=== PATIENT | male | born 1975 | race Caucasian/White ===

== ENCOUNTER 2024-10-15 13:43 | Emergency (ER) | payer OTHER ==
--- OUTSIDE RECORDS SUMMARY | 2024-10-15 13:53 | XMS REPORT | Clinical Summary ---
Author Name Unknown Organization [facility] Address [address] [place] [address] Care Team Providers Care Station Engineer Chief Name Role Phone Jd Pena MD Unavailable [phone] Fco Manuel MD Unavailable BrookdaleTad MD Unavailable [email or web address] Nicole Meadows Unavailable Edwin Guidry MD Unavailable [phone] Terell Seymour MD Unavailable Martin May MD Unavailable Fco Manuel MD Primary Care Provider [phone] Kim Sapp MD Unavailable Wendy Haider MD Unavailable [phone] Viraj Nelson MD Unavailable Taryn FLORES MD, William J Unavailable Rebecca Garza MD Unavailable [phone] Michelle Hagan MD Unavailable Chuck Darby MD Unavailable [phone] Emeka Cruz MD Unavailable Neno Beyer MD Unavailable Allergies Active Allergy Reactions Criticality Noted Date Comments Daptomycin Other (See Comments) High 04/11/2017 Had severe reaction where it was causing muscle degeneration and extreme pain. Rifampin GI Intolerance High 04/11/2017 Dizzy, nausea, and severe diarrhea. Medications * This document contains information received from the source organization and may not represent a complete record from that organization. cholecalciferol, vitamin D3, 125 mcg (5,000 unit) capsule Take 1 capsule (5,000 Units) by mouth every morning. Active clonazePAM (KlonoPIN) 0.5 mg tabletIndications:Anxi ety about body function or health,Adjustment disorder with depressed mood,Adjustment disorder with anxiety,Mild major depression,Panic attack Take half a tablet to 1 tablet daily as needed for panic attacks 30 tablet 2 2018 Active temazepam (RESTORIL) 15 mg capsuleIndications:Anx iety about body function or health,Adjustment disorder with depressed mood,Adjustment disorder with anxiety,Mild major depression Take 1 capsule (15 mg) by mouth nightly as needed for sleep. 2023 Active naloxone (Narcan) 4 mg/actuation nasal sprayIndications:Cance r associated pain,Chronic pain Use 1 dose into one nostril as needed for opioid overdose. Do not prime or test the inhaler prior to adminstration. Give another dose into the other nostril after 2 to 3 minutes if the patient does not respond or responds and then relapses into respiratory depression. 2 each 2023 Active levothyroxine (Synthroid) 100 mcg tabletIndications:Hypo thyroidism, not otherwise specified Take 1 tablet (100 mcg) by mouth daily. 30 tablet 11 2023 Active Jardiance 10 mg tabletIndications:Type 2 diabetes mellitus with hyperglycemia TAKE ONE (1) TABLET(S) BY MOUTH ONCE A DAY. 90 tablet 3 2023 Active montelukast (SINGULAIR) 10 mg tabletIndications:Seas onal allergic rhinitis TAKE ONE (1) TABLET(S) BY MOUTH DAILY. 30 tablet 6 2023 Active rosuvastatin (CRESTOR) 40 mg tabletIndications:Type 2 diabetes mellitus with hyperglycemia TAKE ONE (1) TABLET(S) BY MOUTH AT BEDTIME. 90 tablet 3 2023 Active gabapentin (NEURONTIN) 600 mg tabletIndications:Multiple Coil Winder niels pain TAKE TWO (2) TABLETS BY MOUTH THREE TIMES A DAY. 180 tablet 5 2023 Active fenofibrate 54 mg tabletIndications:Fami lial hypercholesterolemia TAKE ONE (1) TABLET(S) BY MOUTH ONCE A DAY. 30 tablet 11 2023 Active lidocaine (LIDODERM) 5% (700 mg/patch) transdermal patchIndications:Cance r associated pain PLACE 1 PATCH ON THE SKIN DAILY. REMOVE & DISCARD PATCH WITHIN 12 HOURS OR DIRECTED BY MD. REMOVE OLD PATCH(ES) BEFORE REPLACING NEW PATCH(ES). 30 patch 2 2023 Active desvenlafaxine succinate (PRISTIQ) 100 mg 24 hr tablet Take 1 tablet (100 mg) by mouth daily. 2023 Active Proctofoam HC rectal foamIndications:Second emy malignant neoplasm of liver,Secondary malignant neoplasm of right lung,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,Clear cell carcinoma of left kidney APPLY AROUND THE ANUS TWICE DAILY. 10 g 3 2024 Active acetaminophen (TYLENOL) 500 mg tablet Take 1 tablet (500 mg) by mouth as needed for mild pain (pain score 1-3). 05/08 Discontinued( Therapy completed) temazepam (RESTORIL) 15 mg capsuleIndications:Anx iety about body function or health,Adjustment disorder with depressed mood,Adjustment disorder with anxiety,Mild major depression Take 1 capsule (15 mg) by mouth at bedtime. 30 capsule 2 11/28 Discontinued( Reorder) budesonide (PULMICORT) 0.5 mg/2 mL nebulizer solution 2 mL (0.5 mg) as needed. As needed as nasal rinse 05/20 Discontinued( Therapy completed) triamcinolone (KENALOG) 0.1% lotionIndications:Rash Apply topically to affected area(s) 3 (three) times a day. 60 mL 10/12 Discontinued( Therapy completed) rosuvastatin (CRESTOR) 40 mg tabletIndications:Type 2 diabetes mellitus with hyperglycemia TAKE ONE (1) TABLET (40 MG) BY MOUTH AT BEDTIME. 90 tablet 3 10/31 Discontinued polyethylene glycol (Miralax) 17 gram/dose powderIndications:Back pain,Secondary malignant neoplasm of bone Take 17 g by mouth twice daily. USE WHILE TAKING OXYCODONE. 510 g 11/28 Discontinued( Reorder) desvenlafaxine (PRISTIQ) 50 MG 24 hr tablet Take 1 tablet (50 mg) by mouth daily. 11/28 Discontinued( Reorder) fenofibrate 54 mg tabletIndications:Fami lial hypercholesterolemia TAKE ONE (1) TABLET(S) BY MOUTH ONCE A DAY. 30 tablet 11 06/08 Discontinued desvenlafaxine succinate (PRISTIQ) 25 mg 24 hr tablet Take 1 tablet (25 mg) by mouth daily. 11/28 Discontinued( Reorder) Jardiance 10 mg tabIndications:Type 2 diabetes mellitus with hyperglycemia TAKE ONE (1) TABLET(S) BY MOUTH ONCE A DAY. 30 tablet 6 03/02 Discontinued montelukast (SINGULAIR) 10 mg tabletIndications:Seas onal allergic rhinitis TAKE ONE (1) TABLET(S) BY MOUTH DAILY. 30 tablet 6 03/31 Discontinued gabapentin (NEURONTIN) 600 mg tabletIndications:Multiple Coil Winder niels pain TAKE TWO (2) TABLETS BY MOUTH THREE TIMES A DAY. 180 tablet 5 04/28 Discontinued traMADol (ULTRAM) 50 mg tabletIndications:Canc er associated pain Take 1 tablet (50 mg) by mouth every 4 (four) hours as needed for moderate pain or severe pain. 120 tablet 12/05 Discontinued( Therapy completed) cabozantinib (Cabometyx) 40 mg tabletIndications:getachew l cell carcinoma Take 1 tablet (40 mg) by mouth daily. Administer on an empty stomach (at least 1 hour before or 2 hours after eating). 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 30 tablet 5 02/254 Discontinued meloxicam (MOBIC) 7.5 mg tabletIndications:Post -laminectomy syndrome TAKE ONE (1) TABLET(S) BY MOUTH TWICE DAILY. 60 tablet 05/20 Discontinued( Therapy completed) oxyCODONE (OxyCONTIN) 20 mg 12 hr tabletIndications:Canc er associated pain Take 1 tablet (20 mg) by mouth every 12 (twelve) hours. 60 tablet 10/24 Discontinued( Reorder) oxyCODONE (ROXICODONE) 10 mg immediate release tabletIndications:Canc er associated pain Take 1 tablet (10 mg) by mouth every 4 (four) hours as needed for severe pain for up to 30 days. 120 tablet 024 9:57 AM CDT 11/23 oxyCODONE (OxyCONTIN) 20 mg 12 hr tabletIndications:Canc er associated pain Take 1 tablet (20 mg) by mouth every 12 (twelve) hours. 60 tablet 11/28 Discontinued( Stop Taking at Discharge) rosuvastatin (CRESTOR) 40 mg tabletIndications:Type 2 diabetes mellitus with hyperglycemia TAKE ONE (1) TABLET(S) BY MOUTH AT BEDTIME. 90 tablet 1 04/28 Discontinued HYDROmorphone PF 10 mg/mL, BUPivacaine PF 10 mg/mL in sodium chloride 0.9% (PF) 40 mL intrathecal pumpIndications:Neopla sm related pain (acute) (chronic) by intrathecal route continuous. 1 each 11/03 Discontinued HYDROmorphone PF 10 mg/mL, BUPivacaine PF 10 mg/mL in sodium chloride 0.9% (PF) 40 mL intrathecal pumpIndications:Neopla sm related pain (acute) (chronic) by intrathecal route continuous. 1 each 05/05 Discontinued( Other/Not Applicable) cephalexin (KEFLEX) 500 mg capsuleIndications:Chr onic pain Take 1 capsule (500 mg) by mouth twice daily for 7 days. 14 capsule 024 5:15 PM CDT 11/11 desvenlafaxine (PRISTIQ) 50 MG 24 hr tabletIndications:Xena r cell carcinoma of left kidney,Mild major depression,Back pain,Secondary malignant neoplasm of bone Take 1 tablet (50 mg) by mouth daily. Take total dose of 75 mg daily. 08/17 Discontinued desvenlafaxine succinate (PRISTIQ) 25 mg 24 hr tabletIndications:Xena r cell carcinoma of left kidney,Mild major depression,Back pain,Secondary malignant neoplasm of bone Take 1 tablet (25 mg) by mouth daily. Take total dose of 75 mg daily. 08/17 Discontinued polyethylene glycol (Miralax) 17 gram/dose powderIndications:Back pain,Secondary malignant neoplasm of bone Take 17 g by mouth daily as needed (constipation). 510 g 05/20 Discontinued( Therapy completed) tamsulosin (FLOMAX) 0.4 mg 24 hr capsuleIndications:Mal ignant neoplasm of unspecified kidney, except renal pelvis Take 1 capsule (0.4 mg) by mouth daily. 30 capsule 1 024 2:37 PM CDT 05/20 Discontinued( Therapy completed) dexAMETHasone (DECADRON) 4 mg tabletIndications:Violette gnant neoplasm of unspecified kidney, except renal pelvis Take 1 tablet (4 mg) by mouth 4 (four) times a day throughout radiation. Then take 1 tablet (4 mg) three times daily for three days, then take 1 tablet twice daily for three days, then take 1 tablet once daily for three days. 75 tablet 024 2:37 PM CDT 05/20 Discontinued( Therapy completed) pantoprazole (PROTONIX) 40 mg EC tabletIndications:Violette gnant neoplasm of unspecified kidney, except renal pelvis Take 1 tablet (40 mg) by mouth every morning before breakfast. Take while on dexamethasone for GI protection. 30 tablet 1 024 2:37 PM CDT 05/20 Discontinued( Therapy completed) sulfamethoxazole-trime thoprim (Bactrim DS) 800 mg-160 mg per tabletIndications:Violette gnant neoplasm of unspecified kidney, except renal pelvis Take 1 tablet by mouth every Saturday, Saturday and Fridays while on dexamethasone and continue for one month after completion of dexamethasone taper for infection prophylaxis. 12 tablet 1 024 2:37 PM CDT 05/20 Discontinued( Therapy completed) cabozantinib (Cabometyx) 20 mg tabletIndications:Xena r cell carcinoma of left kidney Take 1 tablet (20 mg) by mouth daily. 30 tablet 11 07/22 Discontinued hydrocortisone-pramoxi ne (Proctofoam HC) rectal foamIndications:Second emy malignant neoplasm of liver,Secondary malignant neoplasm of right lung,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,Clear cell carcinoma of left kidney Apply around the anus twice daily. 10 g 3 08/18 Discontinued mirabegron (Myrbetriq) 25 mg 24 hr tabletIndications:Seco ndary malignant neoplasm of liver,Secondary malignant neoplasm of right lung,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,Clear cell carcinoma of left kidney Take 1 tablet (25 mg) by mouth daily. 30 tablet 05/21 Discontinued HYDROmorphone PF 10 mg/mL, BUPivacaine PF 10 mg/mL in sodium chloride 0.9% (PF) 20 mL intrathecal pumpIndications:Cancer associated pain by intrathecal route continuous. 10/12 Discontinued( Therapy completed) lidocaine (Lidoderm) 5% (700 mg/patch) transdermal patchIndications:Cance r associated pain Place 1 patch on the skin daily. Remove & Discard patch within 12 hours or as directed by . Remove old patch(es) before replacing new patch(es). 30 patch 06/22 Discontinued mirabegron (MYRBETRIQ) 25 mg 24 hr tabletIndications:Seco ndary malignant neoplasm of liver,Secondary malignant neoplasm of right lung,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,Clear cell carcinoma of left kidney TAKE ONE (1) TABLET(S) BY MOUTH DAILY. 30 tablet 06/25 Discontinued sulfamethoxazole-trime thoprim (BACTRIM DS) 800 mg-160 mg per tabletIndications:Neur ogenic urinary bladder Take 1 tablet by mouth twice daily. 10 tablet 10/12 Discontinued( Therapy completed) belzutifan (Welireg) 40 mg tabletIndications:Xena r cell carcinoma of left kidney Take 3 tablets (120 mg) by mouth daily. For RCC 90 tablet 11 025 10:20 AM TUNNEL ELASTIC OPERATOR CHAINSTITCH 10/12 Discontinued( Therapy completed) mirabegron (Myrbetriq) 50 mg 24 hr tabletIndications:Othe r specified urinary incontinence Take 1 tablet (50 mg) by mouth daily. 90 tablet 3 10/12 Discontinued( Therapy completed) Active Problems Problem Noted Date Diagnosed Date Other specified urinary incontinence 09/01/2024 Weakness of bilateral lower limb 11/28/2023 Retention of urine 11/28/2023 Incontinence of feces 11/28/2023 Abnormal gait 11/28/2023 Personal care impairment 11/28/2023 Cancer associated pain 10/28/2023 Anemia in chronic kidney disease 10/28/2023 Cauda equina syndrome 07/08/2023 Seasonal allergic rhinitis 01/07/2023 Assessment & Plan (01/07/2023 10:42 AM CDT): Will prescribe Motelukast QD. If patients symptoms persist including SOB, would recommend that patient come into clinic to be further evaluated, including completing pulmonary function testing. 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 09/21/2019 Increased aspartate transaminase level 0 Encounter for examination pr ior to antineoplastic chemotherapy 08/30/2019 Clear cell carcinoma of left kidney 12/31/2018 Encounter for examination fo r normal comparison and control in clinical research program 12/31/2018 Hypercalcemia 08/14/2018 Renal insufficiency 06/12/2018 Dietary counseling in hypercholesterolemia 05/28 Abnormal level of amylase 05/28/2018 Abnormal level of lipase (triacylglycerol lipase ) 05/28/2018 Rash 05/28/2018 Other synovitis and tenosynovitis, left upper ar m 03/07/2018 Overview (03/07/2018): Added automatically from request for surgery [id number] Avascular necrosis of bone 01/20/2018 Bicipital tendinitis of left shoulder 12/19/2017 Panic disorder without agoraphobia 11/13/2017 Secondary malignant neoplasm of liver 09/05/2017 Secondary malignant neoplasm of lung 09/05/2017 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 07/24/2017 Low back pain 05/14/2017 Thyroid nodule 04/11/2017 Anemia in neoplastic disease 03/11/2017 Malignant neoplasm of left kidney, except renal pelvis 01/29/2017 Overview (01/30/2017): Added automatically from request for surgery [id number] ALT (SGPT) level raised 11/12/2016 Adjustment disorder with anxiety 10/09/2016 Mild major depression 10/09/2016 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 09/12/2016 Fracture of lumbar spine 09/05/2016 Malignant neoplasm of kidney, except renal pelvi s 09/05/2016 Numbness of saddle area 09/05/2016 Anxiety about body function or health 02/21/2016 Family history of cancer 07/13/2015 Obstructive sleep apnea syndrome Assessment & Plan (01/07/2023 10:35 AM CDT): Continue to use CPAP more than 70% of the time, more than 4 hours at a time, for cardiovascular and neurocognitive protection. Patient will contact DME regarding CPAP machine that is making sounds. If unable to be fixed we can prescribe new CPAP machine. The patient was educated to obtain a new mask and tubing every 3 months. Follow up in 1 year. Assessment & Plan (12/26/2021 12:15 PM CDT): Continue to use CPAP more than 70% of the time, more than 4 hours at a time, for cardiovascular and neurocognitive protection. The patient was educated to obtain a new mask and tubing every 3 months. Follow up visit in 1 year. Assessment & Plan (09/05/2020 11:11 AM TUNNEL ELASTIC OPERATOR CHAINSTITCH): 03/2020 Severe ZACHARY with AHI: 88.4/hr and O2 sat 66%. Auto-PAP prescribedauto-titrating CPAP set between 5 cmH2O and 15 cmH2O.He has been using the machine consistently and reports improved sleep quality and being better rested since using machine with nasal pillow. Recommend cleaning after each use, weekly filter change and mask and tubing change every 3 months. He will continue use ofAuto-PAP nightly for continued cardiovascular and neurocognitive protection. The patient was counseled to achieve and maintain ideal body weight. The patient was counseled against driving or operating heavy machinery if significant daytime sleepiness persists. Assessment & Plan (07/14/2020 1:41 PM TUNNEL ELASTIC OPERATOR CHAINSTITCH): 03/2020 Severe ZACHARY with AHI: 88.4/hr and O2 sat 66%. Auto-PAP prescribed auto-titrating CPAP set between 5 cmH2O and 15 cmH2O. 05/13/20-07/11/20 Compliance Report shows >4 hour use is only at 40%. 4.8 AHI/per hour and leaks 1.5L/min He admits to sleeping better and feeling better when he uses the Auto CPAP and plans to start using as prescribed. I recommend continued use of Auto-PAP nightly for continued cardiovascular and neurocognitive protection. Home sleep study showed 558 obstructive, 1 central and 145 episodes of hypopnea. He may always require CPAP therapy but considering his recent weight loss we may be able to decrease the range of pressure depending on the results of the next compliance report. The patient was counseled to achieve and maintain ideal body weight. The patient was counseled against driving or operating heavy machinery if significant daytime sleepiness persists. Recommend cleaning after each use, weekly filter change and mask and tubing change every 3 months. Follow up in 6-8 weeks with new compliance report. Encounters * This document contains information received from the source organization and may not represent a complete record from that organization. Date Type Department Care Team Description 10/14/2024 1:01 PM CDT Anesthesia Event [facility] [address] [place] [address], 3rd [place] [address] Rebel Caraballo CAA 10/13/2024 4:00 PM CDT POEM Appointments [facility] [address] [place] [address], 6th [place] [address] Renea Bolanos APRN 10/12/2024 Telephone [facility] - Oncology [address] [facility], 7th [place] [address] Erin Allen RN 10/07/2024 1:59 PM TUNNEL ELASTIC OPERATOR CHAINSTITCH - 10/07/2024 11:59 PM TUNNEL ELASTIC OPERATOR CHAINSTITCH Hospital Encounter [facility] [address] [place] [address], 4th [place] [address] Tree Austin, FORM BUILDER Cancer associated pain; Chronic pain; Neoplasm related pain (acute) (chronic) Discharge Disposition: Home 10/07/2024 Orders Only [facility] [address] [place] [address], 4th [place] [address] Olga Austini, FORM BUILDER Cancer associated pain (Primary Dx) 10/07/2024 Travel 10/06/2024 Orders Only MD [facility] - [facility] Management [address] [place] [address] Garland Rodriguez MD 10/06/2024 Orders Only [facility] [address] [place] [address], 4th [place] [address] Stephanie Austinbili, FORM BUILDER Cancer associated pain (Primary Dx) 10/06/2024 Orders Only [facility] [address] [place] [address], 4th [place] [address] Olga Austini, FORM BUILDER Neoplasm related pain (acute) (chronic) (Primary Dx) 09/29/2024 Specialty Pharmacy [facility] [address] [place] [id number] Lorraine Stanton, [facility] Refill Coordination Outreach - belzutifan (Welireg) for Renal Cell Carcinoma 09/24/2024 Orders Only [facility] [address] [place] [address], [address] [place] [address] Edgard Centeno IV, MD Other specified urinary incontinence (Primary Dx); Other retention of urine 09/21/2024 10:00 AM TUNNEL ELASTIC OPERATOR CHAINSTITCH Follow-Up [facility] - Oncology [address] [place] [address], [address] [place] [id number] Fco Manuel MD Secondary malignant neoplasm of liver; 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; Clear cell carcinoma of left kidney; Secondary malignant neoplasm of right lung 09/21/2024 Travel 09/20/2024 1:25 PM TUNNEL ELASTIC OPERATOR CHAINSTITCH - 09/20/2024 11:59 PM TUNNEL ELASTIC OPERATOR CHAINSTITCH Hospital Encounter [facility] Imaging and Diagnostic Imaging [address] [place] [address], 3rd Floor [place] [id number] Fco Manuel MD Secondary malignant neoplasm of liver; 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; Clear cell carcinoma of left kidney; Secondary malignant neoplasm of right lung Discharge Disposition: Home 09/02/2024 Specialty Pharmacy [facility] [address] [place] [id number] Lorraine Stanton, [facility] Refill Coordination Outreach - belzutifan (Welireg) for Renal Cell Carcinoma 09/01/2024 Refill [facility] [address] [place] [address], [address]th [place] [address] Mino Sosa, preparator pain (Primary Dx) 08/31/2024 11:59 PM TUNNEL ELASTIC OPERATOR CHAINSTITCH Anesthesia Event [facility] [address] [place] [address], [address] [place] [phone] Polly Nolan, RN 08/21/2024 Orders Only [facility] - Oncology [address] [place] [address], [address] [place] [phone] Renea Bolanos APRN 08/21/2024 Mobile Encounter [facility] - Oncology [address] [facility], 7th [place] [address] Renea Bolanos APRN 08/20/2024 11:47 AM TUNNEL ELASTIC OPERATOR CHAINSTITCH - 08/20/2024 11:59 PM TUNNEL ELASTIC OPERATOR CHAINSTITCH Hospital Encounter [facility] [address] [place] [address], 4th [place] [address] Tree Austin APRN Cancer associated pain Discharge Disposition: Home 08/20/2024 9:19 AM TUNNEL ELASTIC OPERATOR CHAINSTITCH Anesthesia Event [facility] [address] [place] [address], 3rd [place] [address] Yahir Keith MD Ovsak, Gavin, MD 08/20/2024 7:45 AM TUNNEL ELASTIC OPERATOR CHAINSTITCH - 08/20/2024 11:46 AM TUNNEL ELASTIC OPERATOR CHAINSTITCH Hospital Encounter [facility] [address] [place] [address], 3rd [place] [address] Renea Bolanos, FORM BUILDER Yahir Keith MD Mirza, Alisa, CRNA Secondary malignant neoplasm of liver; Secondary malignant neoplasm of right lung; Clear cell carcinoma of left kidney; 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; Malignant neoplasm of unspecified kidney, except renal pelvis; Malignant neoplasm of left kidney, except renal pelvis; Secondary malignant neoplasm of retroperitoneum and peritoneum; Hypercalcemia Discharge Disposition: Home 08/20/2024 Travel 08/17/2024 4:30 PM TUNNEL ELASTIC OPERATOR CHAINSTITCH POEM Appointments [facility] [address] [place] [address], 6th [place] [address] Fco Manuel MD 08/17/2024 4:00 PM TUNNEL ELASTIC OPERATOR CHAINSTITCH Anesthesia Event [facility] [address] [place] [address], 6th [place] [address] Dipika Richards RN 08/17/2024 Refill [facility] [address] [place] [address], 4th [place] [address] Mino Sosa, RN Cancer associated pain (Primary Dx) 08/10/2024 Orders Only [facility] - Oncology [address] [place] [address], 7th [place] [address] Renea Bolanos APRN Clear cell carcinoma of left kidney (Primary Dx); Secondary malignant neoplasm of liver; Secondary malignant neoplasm of right lung; Anemia in neoplastic disease 08/09/2024 Refill [facility] - Oncology [address] [place] [address], 7th [place] [address] Renea Bolanos APRN Secondary malignant neoplasm of liver; Secondary malignant neoplasm of right lung; 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; Clear cell carcinoma of left kidney 08/06/2024 Specialty Pharmacy [facility] [address] [place] [id number] Lorraine Stanton, [facility] Refill Coordination Outreach - belzutifan (Aníbal) for Renal Cell Carcinoma 07/24/2024 9:00 AM TUNNEL ELASTIC OPERATOR CHAINSTITCH - 07/24/2024 11:59 PM TUNNEL ELASTIC OPERATOR CHAINSTITCH Hospital Encounter [facility] [address] [place] [id number] Tree Austin APRN Chronic pain (Primary Dx); Cancer associated pain; snf current use of opiate analgesic Discharge Disposition: Home 07/24/2024 Orders Only [facility] [address] [place] [address] Tree Austin APRN Cancer associated pain (Primary Dx); Chronic pain 07/22/2024 3:30 PM TUNNEL ELASTIC OPERATOR CHAINSTITCH POEM Appointments [facility] [address] [place] [address] 6th [place] [address] Fco Manuel MD 07/22/2024 10:00 AM TUNNEL ELASTIC OPERATOR CHAINSTITCH Follow-Up [facility] - Oncology [address] [place] [address], [facility] [place] [address] Renea Bolanos APRN Jonasch, Eric, MD Clear cell carcinoma of left kidney (Primary Dx); Secondary malignant neoplasm of liver; Secondary malignant neoplasm of right lung; 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; Malignant neoplasm of unspecified kidney, except renal pelvis; Malignant neoplasm of left kidney, except renal pelvis; Secondary malignant neoplasm of retroperitoneum and peritoneum; Hypercalcemia 07/22/2024 Orders Only [facility] - Oncology [facility], 7th [place] [address] Ade Barajas, Tere 07/22/2024 Travel 07/21/2024 11:59 PM TUNNEL ELASTIC OPERATOR CHAINSTITCH Anesthesia Event [facility] [address] [place] [address], [address] [place] [address] [place] [address] Polly Nolan RN 07/20/2024 Orders Only [facility] [address] [place] [address] 4th [place] [address] Prema Mak DO Cancer associated pain (Primary Dx) 07/14/2024 10:15 AM TUNNEL ELASTIC OPERATOR CHAINSTITCH Follow-Up [facility] [address] [place], [place] [address] [address] Neno Beyer MD Type 2 diabetes mellitus with hyperglycemia [E11.65] (Primary Dx); Mixed hyperlipidemia [E78.2]; Fatty liver; Chronic kidney disease, stage 3a; Other specified hypothyroidism [E03.8]; Thyroid nodule [E04.1] 07/14/2024 8:15 AM TUNNEL ELASTIC OPERATOR CHAINSTITCH - 07/14/2024 11:59 PM TUNNEL ELASTIC OPERATOR CHAINSTITCH Hospital Encounter [facility] [address] [place] [address] Kayode Duke APRN Type 2 diabetes mellitus with hyperglycemia [E11.65]; Thyroid nodule [E04.1]; Other specified hypothyroidism [E03.8]; Mixed hyperlipidemia [E78.2]; Malignant neoplasm of unspecified kidney, except renal pelvis; Secondary malignant neoplasm of retroperitoneum and peritoneum; Secondary malignant neoplasm of liver; 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; Anemia in neoplastic disease; Malignant neoplasm of left kidney, except renal pelvis; Secondary malignant neoplasm of right lung; Clear cell carcinoma of left kidney; Hypercalcemia Discharge Disposition: Home 07/14/2024 Orders Only [facility] - Oncology [address] [place] [address], 7th [facility] [place] [address] Maryse Garcia, SERENA Secondary malignant neoplasm of liver (Primary Dx); Hypercalcemia; Secondary malignant neoplasm of right lung; Clear cell carcinoma of left kidney 07/14/2024 Orders Only [facility] - Oncology [address] [place] [address], [address] [place] [address] [place] [address] Juan Luis Carlson, [facility] 07/14/2024 Travel 07/09/2024 11:30 AM TUNNEL ELASTIC OPERATOR CHAINSTITCH [facility]surgery [address] [place] [address], [address] [place] [address] Carolyn Evans MD Fracture of lumbar spine <Open; Initial>; 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; Metastatic malignant neoplasm to vertebral column; Radiculopathy of lumbar region 07/09/2024 Documentation [facility] [address] [place] [address] Sarahy Beth APRN 07/09/2024 Orders Only [facility] [address] [place] [address], [address] [place] [address] Sarahy Beth, FORM BUILDER 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 (Primary Dx); Difficulty in walking; Abnormal gait due to impairment of balance; Metastatic malignant neoplasm to vertebral column 07/09/2024 Travel 07/07/2024 Specialty Pharmacy [facility] RX [facility] [address] [place] [id number] Lorraine Stanton [facility] Set up Initial Fill for Renal Cell Carcinoma, Benefits Investigation for Renal Cell Carcinoma 07/07/2024 Specialty Pharmacy [facility] RX SPEC [facility] [address] [place] [phone] Lorraine Stanton RPH 07/07/2024 Telephone [facility] - Oncology [address] [place] [address], 7th [place] [address] Chiquis Pelletier RN 06/29/2024 8:30 AM TUNNEL ELASTIC OPERATOR CHAINSTITCH Telemedicine [facility] - Oncology [address] [place] [address], 7th [place] [address] Fco Manuel MD Secondary malignant neoplasm of liver (Primary Dx); 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; Clear cell carcinoma of left kidney; Secondary malignant neoplasm of right lung 06/29/2024 Specialty Pharmacy [facility] AMB RX SPEC [facility] [address] [place] [id number] Laurie Vargas CPhT 06/29/2024 Orders Only [facility] - Oncology [address] [place] [address], [address] [place] [address] [place] [address] Nicolasa Doss Larisa Clear cell carcinoma of left kidney (Primary Dx) 06/28/2024 10:30 AM TUNNEL ELASTIC OPERATOR CHAINSTITCH - 06/28/2024 11:59 PM TUNNEL ELASTIC OPERATOR CHAINSTITCH Hospital Encounter CT Imaging and Diagnostic Imaging [address] [place] [address], 3rd [place] [address] Renea Bolanos APRN Secondary malignant neoplasm of liver; 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; Clear cell carcinoma of left kidney; Secondary malignant neoplasm of right lung Discharge Disposition: Home 06/28/2024 10:15 AM TUNNEL ELASTIC OPERATOR CHAINSTITCH - 06/28/2024 10:29 AM TUNNEL ELASTIC OPERATOR CHAINSTITCH Hospital Encounter [facility] [address] [place] [address] Renea Bolanos APRN Secondary malignant neoplasm of liver; 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; Clear cell carcinoma of left kidney; Secondary malignant neoplasm of right lung Discharge Disposition: Home 06/23/2024 8:00 AM TUNNEL ELASTIC OPERATOR CHAINSTITCH Consult [facility] [address] [place] [address], 7th [place] [address] Edgard Centeno IV, MD Other retention of urine (Primary Dx); Neurogenic urinary bladder; 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; Clear cell carcinoma of left kidney; Fecal incontinence 06/23/2024 Travel 06/22/2024 Refill [facility], 4th [place] [address] Tree Austin APRN Cancer associated pain 06/19/2024 Orders Only [facility] - Oncology [address] [place] [address], 7th [place] [address] Nicolasa Doss RPH 06/17/2024 2:27 PM TUNNEL ELASTIC OPERATOR CHAINSTITCH - 06/17/2024 11:59 PM TUNNEL ELASTIC OPERATOR CHAINSTITCH Hospital Encounter Vascular Access and Procedures Center [address] [place] [address], 8th [place] [address] Fco Manuel MD Dawood, Laila Y RN Encounter for adjustment and management of vascular access device (Primary Dx) Discharge Disposition: Home 06/17/2024 11:30 AM TUNNEL ELASTIC OPERATOR CHAINSTITCH [facility] - Genitourinary Center [address] [place] [address], 8th [place] [address] Renea Bolanos APRN Secondary malignant neoplasm of liver (Primary Dx); Malignant neoplasm of unspecified kidney, except renal pelvis; 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; Malignant neoplasm of left kidney, except renal pelvis; Secondary malignant neoplasm of retroperitoneum and peritoneum; Secondary malignant neoplasm of right lung; Clear cell carcinoma of left kidney; Hypercalcemia 06/17/2024 9:30 AM TUNNEL ELASTIC OPERATOR CHAINSTITCH Follow-Up [facility] - Oncology [address] [place] [address], 7th [place] [address] Renea Bolanos APRN Clear cell carcinoma of left kidney (Primary Dx); Secondary malignant neoplasm of liver; Secondary malignant neoplasm of right lung; 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; Hypothyroidism, not otherwise specified; Malignant neoplasm of unspecified kidney, except renal pelvis; Malignant neoplasm of left kidney, except renal pelvis; Secondary malignant neoplasm of retroperitoneum and peritoneum; Hypercalcemia 06/17/2024 7:00 AM TUNNEL ELASTIC OPERATOR CHAINSTITCH - 06/17/2024 2:26 PM TUNNEL ELASTIC OPERATOR CHAINSTITCH Hospital Encounter [facility] [address] [place] [id number] Renea Bolanos APRN Secondary malignant neoplasm of liver; Secondary malignant neoplasm of right lung; Clear cell carcinoma of left kidney; 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; Hypothyroidism, not otherwise specified; Malignant neoplasm of unspecified kidney, except renal pelvis; Malignant neoplasm of left kidney, except renal pelvis; Secondary malignant neoplasm of retroperitoneum and peritoneum Discharge Disposition: Home 06/17/2024 Orders Only [facility] - Oncology [address] [place] [address], 7th [place] [address] Fco Manuel MD 06/17/2024 Orders Only [facility] - Oncology [address] [place] [address], 7th [place] [address] Nicolasa Doss, [facility] Clear cell carcinoma of left kidney (Primary Dx) 06/17/2024 Travel 06/17/2024 [facility] [place] [facility] [address] [place] [address], 7th [place] [address] Renea Bolanos APRN Secondary malignant neoplasm of liver; Secondary malignant neoplasm of right lung; 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; Clear cell carcinoma of left kidney 06/07/2024 Refill [facility] [place] - Oncology [address] [place] [address], 7th [place] [address] Renea Bolanos APRN Familial hypercholesterolemia 06/04/2024 3:20 PM CDT - 06/04/2024 11:59 PM CDT Hospital Encounter [facility] [address] [place] [address], 1st [place] [address] Terell Seymour MD 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 (Primary Dx) Discharge Disposition: Home 06/01/2024 10:47 AM CDT - 06/01/2024 11:59 PM CDT Hospital Encounter [facility] [address] [place] [address], 4th [place] [address] Tree Austin APRN Chronic pain Discharge Disposition: Home 06/01/2024 8:27 AM CDT Anesthesia Event [facility] [address] [place] [address], 3rd [place] [address] Yahir Keith MD 06/01/2024 7:00 AM CDT - 06/01/2024 10:46 AM CDT Hospital Encounter [facility] [address] [place] [address], [facility] [place] [address] Yahir Keith MD Mirza, Alisa, CRNA Fracture of lumbar spine <Open; Initial>; 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; Metastatic malignant neoplasm to vertebral column; Radiculopathy of lumbar region Discharge Disposition: Home 06/01/2024 Travel 05/27/2024 11:53 AM CDT Anesthesia Event [facility] [address] [place] [address], [address] [place] [address] [place] [address] Harsha Espino MD 05/26/2024 4:30 PM CDT POEM Appointments [facility] [address] [place] [address], [address] [place] [address] [place] [address] Fco Manuel MD 05/24/2024 11:59 PM CDT Anesthesia Event [facility] [address] [place] [address], [facility] [place] [address] Polly Nolan RN 05/21/2024 Refill [facility] - Oncology [address] [place] [address], 7th [place] [address] Renea Bolanos APRN Secondary malignant neoplasm of liver; Secondary malignant neoplasm of right lung; 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; Clear cell carcinoma of left kidney 05/20/2024 11:30 AM CDT [facility] - Genitourinary Center [address] [place] [address], 8th [place] [address] Renea Bolanos APRN Malignant neoplasm of left kidney, except renal pelvis (Primary Dx); Secondary malignant neoplasm of liver; Secondary malignant neoplasm of right lung; Clear cell carcinoma of left kidney; Malignant neoplasm of unspecified kidney, except renal pelvis; Secondary malignant neoplasm of retroperitoneum and peritoneum; 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 05/20/2024 11:00 AM CDT - 05/20/2024 11:59 PM CDT Hospital Encounter V[facility] Access [facility] Procedures Center [address] [place] [address], 8th [place] [address] Fco Manuel MD Minon, Ricky, RN Discharge Disposition: Home 05/20/2024 10:30 AM CDT Follow-Up [facility] - Oncology [address] [place] [address], 7th [place] [address] Renea Bolanos APRN Malignant neoplasm of left kidney, except renal pelvis (Primary Dx); Secondary malignant neoplasm of liver; Secondary malignant neoplasm of right lung; Clear cell carcinoma of left kidney; 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; Hypothyroidism, not otherwise specified; Malignant neoplasm of unspecified kidney, except renal pelvis; Secondary malignant neoplasm of retroperitoneum and peritoneum; Anemia due to antineoplastic chemotherapy 05/20/2024 7:45 AM CDT - 05/20/2024 10:59 AM CDT Hospital Encounter [facility] [address] [place] [address] Renea Bolanos APRN Secondary malignant neoplasm of liver; Secondary malignant neoplasm of right lung; Clear cell carcinoma of left kidney; 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; Hypothyroidism, not otherwise specified; Malignant neoplasm of unspecified kidney, except renal pelvis; Malignant neoplasm of left kidney, except renal pelvis; Secondary malignant neoplasm of retroperitoneum and peritoneum; Anemia due to antineoplastic chemotherapy Discharge Disposition: Home 05/20/2024 Orders Only [facility] - Oncology [address] [place] [address], 7th [place] [address] Renea Bolanos APRN Clear cell carcinoma of left kidney (Primary Dx); Secondary malignant neoplasm of liver; Secondary malignant neoplasm of right lung; 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; Malignant neoplasm of left kidney, except renal pelvis 05/20/2024 Orders Only [facility] - Oncology [address] [place] [address], 7th [place] [address] Fco Manuel MD 05/20/2024 Travel 05/08/2024 1:00 PM CDT - 05/08/2024 11:59 PM CDT Hospital Encounter [facility] [address] [place] [address], 4th [place] [address] Norman Shibili, FORM BUILDER Chronic pain; Cancer associated pain; snf current use of opiate analgesic Discharge Disposition: Home 05/08/2024 Orders Only [facility] [address] [place] [address], 4th [place] [address] Norman, Shibili, FORM BUILDER manager intermediate current use of opiate analgesic (Primary Dx) 05/05/2024 10:00 AM CDT - 05/05/2024 11:59 PM CDT Hospital Encounter [facility] [address] [place] [address], [facility] [place] [address] Norman, Shibili, FORM BUILDER Chronic pain (Primary Dx); Cancer associated pain; snf current use of opiate analgesic Discharge Disposition: Home 05/05/2024 Orders Only [facility] [address] [place] [address], [facility] [place] [address] Norman, Shibili, FORM BUILDER Cancer associated pain (Primary Dx) 05/05/2024 Orders Only [facility] [address] [place] [address], [facility] [place] [address] Norman Shibili, FORM BUILDER Cancer associated pain (Primary Dx) 05/05/2024 Travel 05/01/2024 Orders Only [facility] [address] [place] [address], [facility] [place] [address] Domingo Chen MD Cancer associated pain (Primary Dx) 05/01/2024 Orders Only [facility] [address] [place] [address], 4th [place] [address] Norman Shibili, FORM BUILDER Cancer associated pain (Primary Dx); manager intermediate current use of opiate analgesic 04/28/2024 Refill [facility] [address] [place] [address], 4th [place] [address] Martin May MD Chronic pain 04/28/2024 Refill Endocrine Center [address] [place] [address], 6th [place] [address] Kayode Duke APRN Type 2 diabetes mellitus with hyperglycemia 04/24/2024 Orders Only [facility] - Oncology [address] [place] [address], 7th [place] [address] Renea Bolanos APRN Clear cell carcinoma of left kidney (Primary Dx); Secondary malignant neoplasm of liver; Secondary malignant neoplasm of right lung; 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 04/22/2024 12:00 PM CDT [facility] [address] [place] [address], 8th [facility] [place] [address] Renea Bolanos APRN Clear cell carcinoma of left kidney (Primary Dx); Secondary malignant neoplasm of liver; Secondary malignant neoplasm of right lung; Malignant neoplasm of unspecified kidney, except renal pelvis; Secondary malignant neoplasm of retroperitoneum and peritoneum; 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; Malignant neoplasm of left kidney, except renal pelvis 04/22/2024 10:49 AM CDT - 04/22/2024 11:59 PM CDT Hospital Encounter [facility] Access [facility] Procedures [facility] [address] [place] [address], 8th [facility] [place] [address] Fco Manuel MD Dawood, Laila Y, RN Encounter for adjustment and management of vascular access device (Primary Dx) Discharge Disposition: Home 04/22/2024 10:30 AM CDT [facility] [address] [place] [address], [address] [place], [place] [address] [address] Renea Bolanos APRN Clear cell carcinoma of left kidney (Primary Dx); Secondary malignant neoplasm of liver; Secondary malignant neoplasm of right lung; 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; Hypothyroidism, not otherwise specified; Malignant neoplasm of unspecified kidney, except renal pelvis; Malignant neoplasm of left kidney, except renal pelvis; Secondary malignant neoplasm of retroperitoneum and peritoneum; Anemia in neoplastic disease 04/22/2024 7:00 AM CDT - 04/22/2024 10:48 AM CDT Hospital Encounter [facility] [address] [place] [address] Renea Bolanos APRN Secondary malignant neoplasm of liver; Secondary malignant neoplasm of right lung; Clear cell carcinoma of left kidney; 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; Hypothyroidism, not otherwise specified; Malignant neoplasm of unspecified kidney, except renal pelvis; Malignant neoplasm of left kidney, except renal pelvis Discharge Disposition: Home 04/22/2024 Orders Only [facility] - Oncology [address] [place] [address], 7th [place] [address] Fco Manuel MD 04/22/2024 Orders Only [facility] - Oncology [address] [place] [address], 7th [place] [address] oLrenza Trevino RPH 04/22/2024 Travel 04/20/2024 Orders Only [facility] [place] - Oncology [address] [place] [address], 7th [place] [address] Fco Manuel MD 04/16/2024 Documentation [facility] [place] - Oncology [address] [place] [address], 7th [place] [address] Renea Bolanos APRN 03/31/2024 [facility] - Pulmonology Medicine [facility], 6th [place] [address] Janneth Grijalva APRN Seasonal allergic rhinitis 03/30/2024 10:30 AM CDT Telemedicine [facility] - Oncology [address] [place] [address], 7th [place] [address] Fco Manuel MD Other specified urinary incontinence (Primary Dx); Secondary malignant neoplasm of liver; Secondary malignant neoplasm of right lung; Clear cell carcinoma of left kidney; 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; Secondary malignant neoplasm of retroperitoneum and peritoneum 03/30/2024 Orders Only [facility] - Oncology [address] [place] [address], 7th [place] [address] Renea Bolanos APRN Clear cell carcinoma of left kidney (Primary Dx); Secondary malignant neoplasm of liver; 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; Secondary malignant neoplasm of right lung 03/29/2024 4:34 PM CDT - 03/29/2024 11:59 PM CDT Hospital Encounter [facility] Diagnostic Imaging [address] [place] [address], 3rd [place] [address] Renea Bolanos APRN Secondary malignant neoplasm of liver; Secondary malignant neoplasm of right lung; Clear cell carcinoma of left kidney; 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; Secondary malignant neoplasm of retroperitoneum and peritoneum Discharge Disposition: Home 03/29/2024 4:15 PM CDT - 03/29/2024 4:33 PM CDT Hospital Encounter [facility] [address] [place] [address] Renea Bolanos APRN Secondary malignant neoplasm of liver; Secondary malignant neoplasm of right lung; Clear cell carcinoma of left kidney; 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; Secondary malignant neoplasm of retroperitoneum and peritoneum Discharge Disposition: Home 03/27/2024 Refill [facility] [address] [place] [address], 4th [place] [address] Mino Sosa, preparator pain (Primary Dx) 03/25/2024 2:19 PM CDT - 03/25/2024 11:59 PM CDT Hospital Encounter [facility] Access [facility] Procedures Center [address] [place] [address], 8th [place] [address] Fco Manuel MD Howell, Anjanette, surgical specialist Disposition: Home 03/25/2024 1:44 PM CDT - 03/25/2024 2:18 PM CDT Hospital Encounter [facility] [address] [place] [address] Renea Bolanos APRN Secondary malignant neoplasm of liver; Clear cell carcinoma of left kidney; 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; Malignant neoplasm of unspecified kidney, except renal pelvis; Malignant neoplasm of left kidney, except renal pelvis Discharge Disposition: Home 03/25/2024 1:00 PM CDT [facility] - Genitourinary Center [address] [place] [address], 8th [place] [address] Renea Bolanos APRN Clear cell carcinoma of left kidney (Primary Dx); Malignant neoplasm of unspecified kidney, except renal pelvis; Secondary malignant neoplasm of retroperitoneum and peritoneum; Secondary malignant neoplasm of liver; 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; Anemia in chronic kidney disease; Malignant neoplasm of left kidney, except renal pelvis; Secondary malignant neoplasm of right lung 03/25/2024 12:00 PM CDT Follow-Up [facility] - Oncology [address] [place] [address], 7th [place] [address] Renea Bolanos APRN Malignant neoplasm of left kidney, except renal pelvis (Primary Dx); Secondary malignant neoplasm of liver; Secondary malignant neoplasm of right lung; Clear cell carcinoma of left kidney; 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; Secondary malignant neoplasm of retroperitoneum and peritoneum; Hypothyroidism, not otherwise specified; Malignant neoplasm of unspecified kidney, except renal pelvis; Anemia in chronic kidney disease 03/25/2024 9:15 AM CDT - 03/25/2024 1:43 PM CDT Hospital Encounter [facility] [address] [place] [address] Renea Bolanos APRN Secondary malignant neoplasm of liver; Secondary malignant neoplasm of right lung; Clear cell carcinoma of left kidney; 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; Secondary malignant neoplasm of retroperitoneum and peritoneum; Hypothyroidism, not otherwise specified; Malignant neoplasm of unspecified kidney, except renal pelvis; Malignant neoplasm of left kidney, except renal pelvis; Anemia in chronic kidney disease Discharge Disposition: Home 03/25/2024 Orders Only [facility] - Oncology [address] [place] [address], 7th [place] [address] Fco Manuel MD 03/25/2024 Travel 03/19/2024 Orders Only Radiation Treatment Center [facility], 1st [place] [address] Matilda Stevenson APRN 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 (Primary Dx) 03/06/2024 11:00 AM CDT Telemedicine Cardiopulmonary Center - Pulmonology Medicine [facility], 6th [place] [address] Janneth Grijalva APRN de Lumban, Tamara C, APRN Obstructive sleep apnea (Primary Dx) 02/29/2024 Refill Endocrine Center [facility], 6th [place] [address] Kayode Duke APRN Type 2 diabetes mellitus with hyperglycemia 02/26/2024 1:30 PM CDT Infusion [facility] - Genitourinary Center [address] [place] [address], 8th [place] [address] Fco Manuel MD Clear cell carcinoma of left kidney (Primary Dx); Secondary malignant neoplasm of liver; Secondary malignant neoplasm of right lung; Malignant neoplasm of unspecified kidney, except renal pelvis; Secondary malignant neoplasm of retroperitoneum and peritoneum; 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; Anemia in chronic kidney disease; Malignant neoplasm of left kidney, except renal pelvis 02/26/2024 12:40 PM CDT - 02/26/2024 11:59 PM CDT Hospital Encounter Vascular Access and Procedures Center [address] [place] [address], 8th [place] [address] Fco Manuel MD Cardenas, Rommel E, surgical specialist Disposition: Home 02/26/2024 12:00 PM CDT Follow-Up [facility] - Oncology [address] [place] [address], 7th [place] [address] Fco Manuel MD Sicalag, Rosalie L, APRN Clear cell carcinoma of left kidney (Primary Dx); Secondary malignant neoplasm of liver; Secondary malignant neoplasm of right lung; 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; Secondary malignant neoplasm of retroperitoneum and peritoneum; Hypothyroidism, not otherwise specified; Malignant neoplasm of unspecified kidney, except renal pelvis; Malignant neoplasm of left kidney, except renal pelvis; Anemia in chronic kidney disease 02/26/2024 10:00 AM CDT - 02/26/2024 12:39 PM CDT Hospital Encounter Diagnostic Laboratory Center [address] [place] [id number] Renea Bolanos, FORM BUILDER Secondary malignant neoplasm of liver; Secondary malignant neoplasm of right lung; Clear cell carcinoma of left kidney; 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; Secondary malignant neoplasm of retroperitoneum and peritoneum Discharge Disposition: Home 02/26/2024 Travel 02/26/2024 [facility] [place] [facility] [address] [place] [address], 7th [place] [address] Melani Owens RN 02/26/2024 Orders [facility] [place] [facility] [address] [place] [address], 7th [place] [address] Fco Manuel MD 2024 Telephone [facility] [place] - Oncology [address] [place] [address], 7th [place] [address] Chiquis Pelletier RN 01/29/2024 11:40 AM CDT [facility] [address] [place] [address], 8th [place] [address] Renea Bolanos, FORM BUILDER Clear cell carcinoma of left kidney (Primary Dx); Secondary malignant neoplasm of liver; Secondary malignant neoplasm of right lung; Malignant neoplasm of unspecified kidney, except renal pelvis; Secondary malignant neoplasm of retroperitoneum and peritoneum; 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; Malignant neoplasm of left kidney, except renal pelvis 01/29/2024 11:20 AM CDT - 01/29/2024 11:59 PM CDT Hospital Encounter Vascular Access and Procedures Center [address] [place] [address], 8th [place] [address] Fco Manuel MD Alexander, Delicia M, surgical specialist Disposition: Home 01/29/2024 10:30 AM CDT Follow-Up [facility] - Oncology [address] [place] [address], [facility] [place] [address] Renea Bolanos APRN Jonasch, Eric, MD Secondary malignant neoplasm of liver; Secondary malignant neoplasm of right lung; Clear cell carcinoma of left kidney 01/29/2024 Orders Only [facility] - Oncology [address] [place] [address], [address] [place], [place] [address] [address] Renea Bolanos APRN Clear cell carcinoma of left kidney (Primary Dx); Secondary malignant neoplasm of liver; Secondary malignant neoplasm of right lung; 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; Secondary malignant neoplasm of retroperitoneum and peritoneum 01/29/2024 Orders Only [facility] - Oncology [address] [place], [place] [address] [address] Fco Manuel MD 01/29/2024 Orders Only [facility] - Oncology [address] [place] [address] [place] [address] Ade Barajas, LiD Secondary malignant neoplasm of liver (Primary Dx); Secondary malignant neoplasm of right lung; Clear cell carcinoma of left kidney 01/29/2024 Travel 01/24/2024 12:30 PM CDT Ancillary Procedure [facility] [address] [address] Janneth Grijalva APRN Multiple nodules of lung 01/24/2024 Travel 01/20/2024 1:00 PM CDT Telemedicine Cardiopulmonary Center - Pulmonology Medicine [address] [facility], 6th [place] [address] Anjali Lemus APRN Obstructive sleep apnea (Primary Dx); Seasonal allergic rhinitis 01/20/2024 Orders Only [facility] - Oncology [address] [place] [address] [place] [address] Renea Bolanos APRN Malignant neoplasm of left kidney, except renal pelvis (Primary Dx); Secondary malignant neoplasm of liver; Secondary malignant neoplasm of right lung; Malignant neoplasm of unspecified kidney, except renal pelvis; Clear cell carcinoma of left kidney; 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; Secondary malignant neoplasm of retroperitoneum and peritoneum 01/20/2024 Orders Only [facility] - Oncology [address] [place] [address], [facility] [place] [address] Renea Bolanos APRN Secondary malignant neoplasm of liver (Primary Dx); Secondary malignant neoplasm of right lung; Clear cell carcinoma of left kidney; Malignant neoplasm of unspecified kidney, except renal pelvis; Secondary malignant neoplasm of retroperitoneum and peritoneum; 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; Malignant neoplasm of left kidney, except renal pelvis; Other iron deficiency anemia 01/02/2024 9:00 AM CDT Clinical Support [facility] [address] [place] [address] [place] [address] Renea Bolanos APRN Presa, Eileen M, RN Secondary malignant neoplasm of liver; Secondary malignant neoplasm of right lung; Clear cell carcinoma of left kidney; 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; Malignant neoplasm of left kidney, except renal pelvis 01/02/2024 7:30 AM CDT - 01/02/2024 11:59 PM CDT Hospital Encounter Diagnostic [facility] [address] [place] [address] Renea Bolanos APRN Secondary malignant neoplasm of liver; Secondary malignant neoplasm of right lung; Clear cell carcinoma of left kidney Discharge Disposition: Home 01/02/2024 Travel 01/01/2024 Orders Only [facility] - Oncology [address] [place] [address], [address] [place], [place] [address] [address] Renea Bolanos APRN Clear cell carcinoma of left kidney (Primary Dx); Secondary malignant neoplasm of liver; Secondary malignant neoplasm of right lung 01/01/2024 Orders Only [facility] - Oncology [address] [place] [address], [facility] [place] [address] Renea Bolanos APRN Malignant neoplasm of left kidney, except renal pelvis (Primary Dx); Secondary malignant neoplasm of liver; Secondary malignant neoplasm of right lung; Clear cell carcinoma of left kidney; 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 12/24/2023 Documentation Endocrine Center [address] [facility], 6th [place] [address] Kayode Duke APRN 12/23/2023 12:10 PM CDT - 12/23/2023 11:59 PM CDT Hospital Encounter Vascular Access and Procedures Center [address] [place] [address], 8th [place] [address] Fco Manuel MD Ang, Melani Garrison RN Discharge Disposition: Home 12/23/2023 11:30 AM CDT Infusion Ambulatory Treatment Center - Genitourinary Center [address] [place] [address], 8th [place] [address] Renea Bolanos APRN Clear cell carcinoma of left kidney (Primary Dx); Secondary malignant neoplasm of liver; Secondary malignant neoplasm of right lung; Malignant neoplasm of unspecified kidney, except renal pelvis; Secondary malignant neoplasm of retroperitoneum and peritoneum; 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; Malignant neoplasm of left kidney, except renal pelvis 12/23/2023 11:00 AM CDT Follow-Up [facility] - Oncology [address] [place] [address], 7th [place] [address] Renea Bolanos APRN Clear cell carcinoma of left kidney (Primary Dx); Secondary malignant neoplasm of liver; Secondary malignant neoplasm of right lung; Other abnormal glucose 12/23/2023 9:45 AM CDT - 12/23/2023 12:09 PM CDT Hospital Encounter Diagnostic [facility] Center [address] [place] [address] Renea Bolanos APRN Secondary malignant neoplasm of liver; Secondary malignant neoplasm of right lung; Clear cell carcinoma of left kidney Discharge Disposition: Home 12/23/2023 Orders Only [facility] - Oncology [address] [place] [address], 7th Floor [place], [place] [phone] Fco Manuel MD 12/23/2023 Travel 12/19/2023 3:04 PM CDT - 12/19/2023 11:59 PM CDT Hospital Encounter Radiation Treatment Center [address] [place] [address] [place] [address] Fco Manuel MD Discharge Disposition: Home 12/19/2023 Documentation MD [facility] [place] - Radiation Oncology [address] [facility] 1st [place] [address] Terell Seymour MD 12/19/2023 Travel 12/18/2023 2:15 PM CDT - 12/18/2023 11:59 PM CDT Hospital Encounter Radiation Treatment Center [address] [place] [address] [place] [address] Fco Manuel MD Discharge Disposition: Home 12/18/2023 Travel 12/17/2023 11:59 PM CDT Anesthesia Event Peri[facility] Evaluation [facility] Management Center [address] [place] [address], 6th [place] [address] Dipika Richards RN 12/17/2023 4:26 PM CDT - 12/17/2023 11:59 PM CDT Hospital Encounter Radiation Treatment Center [address] [place] [address] [place] [address] Fco Manuel MD Discharge Disposition: Home 12/17/2023 Travel 12/17/2023 Orders Only [facility] - Oncology [address] [facility], 7th [place] [address] Renea Bolanos, FORM BUILDER Clear cell carcinoma of left kidney (Primary Dx); Secondary malignant neoplasm of liver; Secondary malignant neoplasm of right lung; Malignant neoplasm of unspecified kidney, except renal pelvis; Secondary malignant neoplasm of retroperitoneum and peritoneum; 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; Malignant neoplasm of left kidney, except renal pelvis 12/16/2023 7:45 AM CDT - 12/16/2023 11:59 PM CDT Hospital Encounter Radiation Treatment Center [address] Main [place] [address] Fco Manuel MD Discharge Disposition: Home 12/16/2023 Travel 12/13/2023 4:15 PM CDT - 12/13/2023 11:59 PM CDT Hospital Encounter Radiation Treatment Center [facility] Main [place] [address] Fco Manuel MD Discharge Disposition: Home 12/13/2023 Travel 12/12/2023 10:38 AM CDT - 12/12/2023 11:59 PM CDT Hospital Encounter Radiation Treatment Center [facility] [place] [address] Fco Manuel MD Discharge Disposition: Home 12/12/2023 10:16 AM CDT - 12/12/2023 10:37 AM CDT Hospital Encounter Radiation Treatment Center [facility]ldg, 1st [place] [address] Terell Seymour MD Discharge Disposition: Home 12/12/2023 Travel 12/11/2023 4:49 PM CDT - 12/11/2023 11:59 PM CDT Hospital Encounter Radiation Treatment Center [facility] [place] [address] Fco Manuel MD Discharge Disposition: Home 12/11/2023 Travel 12/10/2023 5:30 PM CDT - 12/10/2023 11:59 PM CDT Hospital Encounter Radiation Treatment Center [facility] Main [place] [address] Fco Manuel MD Discharge Disposition: Home 12/10/2023 Travel 12/09/2023 10:15 AM CDT - 12/09/2023 11:59 PM CDT Hospital Encounter Radiation Treatment Center [facility] Bldg, 1st [place] [address] Terell Seymour MD Discharge Disposition: Home 12/09/2023 9:44 AM CDT - 12/09/2023 10:14 AM CDT Hospital Encounter Radiation Treatment Center [facility] [place] [address] Fco Manuel MD Discharge Disposition: Home 12/09/2023 Orders Only [facility] - Oncology [address] [facility], 7th [place] [address] Renea Bolanos, FORM BUILDER 12/09/2023 Travel 12/08/2023 Orders Only [facility] - Oncology [address] [facility], 7th [place] [address] Renea Bolanos, FORM BUILDER 12/06/2023 11:45 AM CDT - 12/06/2023 11:59 PM CDT Hospital Encounter Radiation Treatment Center [address] [place] [address] [place] [address] Fco Manuel MD Discharge Disposition: Home 12/06/2023 10:00 AM CDT - 12/06/2023 11:44 AM CDT Hospital Encounter Pain Management Center [address] [place] [address], 4th [place] [address] Tree Austin, SERENA manager intermediate current use of opiate analgesic (Primary Dx); Cancer associated pain; Chronic pain Discharge Disposition: Home 12/06/2023 Travel 12/05/2023 2:10 PM CDT - 12/05/2023 11:59 PM CDT Hospital Encounter Radiation Treatment Center [address] [place] [address], 1st [place] [address] Terell Seymour MD 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 Discharge Disposition: Home 12/05/2023 Documentation [place] - Radiation Oncology [address] [address] Terell Seymour MD 12/05/2023 Orders Only Pain Management Center [address] [place] [address], 4th [place] [address] Tree Austin APRN Cancer associated pain (Primary Dx); Chronic pain 12/04/2023 12:30 PM CDT Infusion Ambulatory Treatment Center - Genitourinary Center [facility], 8th [place] [address] Renea Bolanos, FORM BUILDER Malignant neoplasm of left kidney, except renal pelvis (Primary Dx); Malignant neoplasm of unspecified kidney, except renal pelvis; Secondary malignant neoplasm of retroperitoneum and peritoneum; Secondary malignant neoplasm of liver; 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 12/04/2023 10:00 AM CDT Follow-Up [facility] - Oncology [address] [place] [address], 7th [place] [address] Fco Manuel MD Secondary malignant neoplasm of retroperitoneum and peritoneum; Secondary malignant neoplasm of liver; 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; Malignant neoplasm of left kidney, except renal pelvis; Clear cell carcinoma of left kidney; Secondary malignant neoplasm of right lung 12/04/2023 9:20 AM CDT - 12/04/2023 11:59 PM CDT Hospital Encounter Pain Management Center [address] [place] [address], 4th [place] [address] Martin May MD Cancer associated pain Discharge Disposition: Home 12/04/2023 Orders Only [facility] - Oncology [address] [place] [address], 7th [place] [address] Damaris Deleon, PharmD 12/04/2023 Orders Only Radiation Treatment Center [address] [place] [address], 1st [place] [address] Rosa Elena Patel APRN 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 (Primary Dx) 12/04/2023 Travel 12/03/2023 Orders Only Radiation Treatment Center [facility] [facility], 1st [place] [address] Rosa Elena Patel FORM BUILDER 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 (Primary Dx) 12/02/2023 6:30 AM CDT - 12/02/2023 11:59 PM CDT Hospital Encounter Radiation Treatment Center [address] [facility] Main [place] [address] Fco Manuel MD Discharge Disposition: Home 12/02/2023 Documentation Radiation Treatment [facility] [address] [facility] Main Bldg, 1st [place] [address] Rosa Elena Patel, FORM BUILDER 12/02/2023 Orders Only [facility] - Oncology [address] [facility], 7th [place] [address] Renea Bolanos, FORM BUILDER 11/30/2023 Mobile Encounter Pain Management Center [address] [facility] Main Bldg, 4th [place] [address] Sonja Cantor MD Cancer associated pain (Primary Dx) 11/29/2023 1:45 PM CDT - 11/29/2023 11:59 PM CDT Hospital Encounter Radiation Treatment Center [address] [facility] Main [place] [address] Rosa Elena Patel, Terell Jeffries MD 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 Discharge Disposition: Home 11/29/2023 Documentation [facility] - Radiation Oncology [address] [facility] 1st [place] [address] Terell Seymour MD 11/29/2023 Documentation Radiation Treatment Center [address] [facility] Main Bldg, 1st [place] [address] Néstor Kearns MD 11/29/2023 Documentation Radiation Treatment Center [address] [facility] Main Bldg, 1st [place] [address] Cassie Sapp APRN 11/28/2023 Orders Only Radiation Treatment Center [address] [facility] Main Bldg, 1st [place] [address] Rosa Elena Patel, FORM BUILDER 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 (Primary Dx) 11/28/2023 Travel 11/27/2023 2:16 PM CDT - 11/30/2023 4:07 PM CDT Hospital Encounter MAIN [address] [place] [address] Saeid Miranda MD Goswami, Sangeeta, MD Corn, Paul, MD Malignant neoplasm of unspecified kidney, except renal pelvis (Primary Dx); Retention of urine; Metastatic spinal cord compression; Clear cell carcinoma of left kidney; Type 2 diabetes mellitus; Personal care impairment; Abnormal gait; Anxiety about body function or health; Adjustment disorder with depressed mood; Adjustment disorder with anxiety; Mild major depression; Back pain; Secondary malignant neoplasm of bone Discharge Disposition: Home 11/27/2023 Telephone [facility] [address] [place] [address], 4th [place] [address] Shweta Evans MD 11/27/2023 Travel 11/20/2023 Orders Only [facility] - Oncology [address] [place] [address], 7th [place] [address] Renea Bolanos APRN Malignant neoplasm of unspecified kidney, except renal pelvis (Primary Dx); Secondary malignant neoplasm of retroperitoneum and peritoneum; Secondary malignant neoplasm of liver; 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; Malignant neoplasm of left kidney, except renal pelvis 11/18/2023 11:00 AM CDT - 11/18/2023 11:59 PM CDT Hospital Encounter Pain Management Center [address] [place] [address], 4th [place] [address] Martin May MD Chronic pain Discharge Disposition: Home 11/18/2023 Travel 11/13/2023 1:30 PM CDT Infusion [facility] - Genitourinary Center [address] [place] [address], 8th [place] [address] Renea Bolanos APRN Clear cell carcinoma of left kidney (Primary Dx); Secondary malignant neoplasm of liver; Secondary malignant neoplasm of right lung 11/13/2023 1:07 PM CDT - 11/13/2023 11:59 PM CDT Hospital Encounter Vascular Access and Procedures Center [address] [place] [address], 8th [place] [address] Fco Manuel MD Discharge Disposition: Home 11/13/2023 11:30 AM CDT Follow-Up [facility] - Oncology [address] [place] [address], 7th [place] [address] Fco Manuel MD Sicalag, Rosalie L, SERENA Malignant neoplasm of left kidney, except renal pelvis (Primary Dx); Secondary malignant neoplasm of retroperitoneum and peritoneum; Secondary malignant neoplasm of liver; 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; Clear cell carcinoma of left kidney; Secondary malignant neoplasm of right lung; Malignant neoplasm of unspecified kidney, except renal pelvis 11/13/2023 7:45 AM CDT - 11/13/2023 1:06 PM CDT Hospital Encounter Diagnostic Laboratory Center [address] [place] [address] Renea Bolanos APRN Secondary malignant neoplasm of retroperitoneum and peritoneum; Secondary malignant neoplasm of liver; 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; Malignant neoplasm of left kidney, except renal pelvis; Clear cell carcinoma of left kidney; Secondary malignant neoplasm of right lung; Malignant neoplasm of unspecified kidney, except renal pelvis Discharge Disposition: Home 11/13/2023 Orders Only [facility] - Oncology [address] [place] [address], 7th [place] [address] Renea Bolanos APRN 11/13/2023 Orders Only [facility] - Oncology [address] [place] [address], 7th [place] [address] Fco Manuel MD 11/13/2023 Orders Only [facility] - Oncology [address] [place] [address], 7th [place] [address] Juan Luis Carlson RPH 11/13/2023 Travel 11/08/2023 Orders Only [facility] - Oncology [address] [place] [address], 7th [place] [address] Renea Bolanos, FORM BUILDER Secondary malignant neoplasm of liver (Primary Dx); Secondary malignant neoplasm of right lung; Clear cell carcinoma of left kidney 11/06/2023 Orders Only [facility] - Oncology [address] [place] [address], [address] [place], [place] [address] [address] Renea Bolanos, FORM BUILDER Secondary malignant neoplasm of liver (Primary Dx); Secondary malignant neoplasm of right lung; Clear cell carcinoma of left kidney 11/05/2023 3:00 PM CDT Ancillary Procedure [facility] [address] [place] [phone] 11/05/2023 2:35 PM CDT - 11/05/2023 4:30 PM CDT Surgery Pre-Op/Surgery Check-In [address] [place] [address] Martin May MD IMPLANTATION OF TUNNELED INTRATHECAL OR EPIDURAL CATHETER, FOR LONG-TERM INFORMATION OPERATOR VIA PUMP 11/05/2023 2:34 PM CDT Anesthesia Event Pre-Op/Surgery Check-In [address] [place] [address] Lynn Stanton MD Rebello, Elizabeth, MD 11/05/2023 10:32 AM CDT - 11/05/2023 6:30 PM CDT Hospital Encounter Pre-Op/Surgery Check-In [address] [place] [address] Martin May MD Cancer associated pain; Neoplasm related pain (acute) (chronic) Discharge Disposition: Home 11/05/2023 Orders Only Pain Management Center [facility] [address] Collin Brown MD Chronic pain (Primary Dx) 11/05/2023 Travel 11/04/2023 10:30 AM CDT - 11/04/2023 11:59 PM CDT Hospital Encounter Diagnostic Laboratory Center [address] [place] [address] Martin May MD Cancer associated pain Discharge Disposition: Home 11/04/2023 Orders Only Pain Management Center [address] [place] [address], 4th [place] [address] Rebeca Cintron MD Neoplasm related pain (acute) (chronic) (Primary Dx) 11/04/2023 Orders Only Pain Management Center [address] [place] [address], 4th [place] [address] Martin May MD Neoplasm related pain (acute) (chronic) (Primary Dx); Chronic pain 11/02/2023 7:46 PM CDT - 11/03/2023 2:55 AM CDT Emergency MAIN [address] [place] [id number] Warner Morfin MD Subudhi, Sumit, MD Malignant neoplasm of kidney, except renal pelvis (Primary Dx); Back pain Discharge Disposition: Left Against Medical Advice 11/02/2023 Travel 11/01/2023 11:59 PM CDT Anesthesia Event [facility] [address] [place] [address], 6th Floor Elevator [place] [id number] Maday Heck RN 11/01/2023 4:30 PM CDT POEM Appointments [facility] [address] [place] [address], 6th [place] [address] Martin May MD Cancer associated pain 11/01/2023 Refill Endocrine Center [address] [place] [address], 6th [place] [address] Dian Lopez APRN Type 2 diabetes mellitus with hyperglycemia 10/28/2023 Orders Only Radiation Treatment Center [address] [place] [address], 1st [place] [address] Rosa Elena Patel APRN 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 (Primary Dx) 10/28/2023 Orders Only Pain Management [facility] [address] [place] [address], 4th [place] [address] Rebeca Cintron MD Cancer associated pain (Primary Dx) 10/28/2023 Telephone [facility] Management [facility] [address] [place] [address] [facility], 4th [place] [address] Rebeca Cintron MD 10/25/2023 9:08 AM CDT - 10/25/2023 11:59 PM CDT Hospital Encounter [facility] [address] [place] [address] [facility], 4th [place] [address] Martin May MD Discharge Disposition: Home 10/25/2023 8:00 AM CDT - 10/25/2023 9:07 AM CDT Hospital Encounter [facility] [address] [place] [address], 4th [place] [address] Martin May MD Cancer associated pain (Primary Dx) Discharge Disposition: Home 10/25/2023 Orders Only [facility] [address] [place] [address], 4th [place] [address] Rebeca Cintron MD Cancer associated pain (Primary Dx) 10/25/2023 Travel 10/22/2023 Orders Only [facility] [address] [place] [address], 4th [place] [address] Shweta Evans MD 10/21/2023 Refill [facility] [address] [place] [address], 4th [place] [address] Martin May MD Post-laminectomy syndrome 10/16/2023 Orders Only [facility] [address] [place] [address], 4th [place] [address] Elen Evans MD 10/16/2023 Orders Only [facility] [address] [place] [address], 4th [place] [address] Shweta Evans MD after 10/16/2023 Immunizations Name Administration Dates Next Due Pfizer SARS-CoV-2 Vaccination (Purple Cap) 05/06,04/15/2021 Surgical History Surgery Date Site/Laterality Comments NEPHRECTOMY Left hand-assisted laparoscopic left radical nephrectomy 05/02/2015 OTHER SURGICAL HISTORY Acute fascial dehiscence repair using mesh in 05/09/2015 OTHER SURGICAL HISTORY umbilical herniorrhaphy SINUS SURGERY 08/05/2009 - 08/04/2010 DC COLONOSCOPY FLX DX W/COLLJ SPEC WHEN PFRMD 11/04/2015 N/A Procedure: DIAGNOSTIC FLEXIBLE COLONOSCOPY PROXIMAL TO SPLENIC FLEXURE; Surgeon: Julius Hernandez MD; Location: MAIN ENDOSCOPY; Service: GASTROENTEROLOGY DC LAMINECTOMY W/RMVL ABNORMAL FACETS LUMBAR 01/30/2017 Midline Procedure: L4-L5 LAMINECTOMY AND DECOMPRESSION ; Surgeon: Carolyn Evans MD; Location: MAIN OR; Service: NEUROSURGERY Medical devices from this surgery are in the Medical Devices section. DC POSTERIOR SEGMENTAL INSTRUMENTATION 3-6 VRT SEG 01/30/2017 Spine/Midline Procedure: POSTERIOR STABILIZATION L3- PELVIS; Surgeon: Carolyn Evans MD; Location: MAIN OR; Service: NEUROSURGERY Medical devices from this surgery are in the Medical Devices section. DC REPAIR COMPLEX SCALP/ARM/LEG 1.1-2.5 CM 01/30/2017 Midline Procedure: COMPLEX CLOSURE OF THE LUMBAR REGION WITH HISTORY OF RCC POST RADIATION; Surgeon: Leidy Barber MD; Location: MAIN OR; Service: PLS - PLASTIC SURGERY Medical devices from this surgery are in the Medical Devices section. DC MUSC MYOCUTANEOUS/FASCIOCUTANEOU S FLAP TRUNK 01/30/2017 Bilateral Procedure: MUSCLE/MYOCUTANEOUS/FASCIOC UTANEOUS FLAP OF TRUNK; Surgeon: Leidy Barber MD; Location: MAIN OR; Service: PLS - PLASTIC SURGERY Medical devices from this surgery are in the Medical Devices section. DC NEGATIVE PRESSURE WOUND THERAPY DME <= 50 SQ CM 01/30/2017 Midline Procedure: NEGATIVE PRESSURE WOUND THERAPY (WOUND VAC); Surgeon: Leidy Barber MD; Location: MAIN OR; Service: PLS - PLASTIC SURGERY Medical devices from this surgery are in the Medical Devices section. FINE NEEDLE ASPIRATION Left Thyroid DC I&D HEMATOMA SEROMA/FLUID COLLECTION 07/03/2017 Midline Procedure: EXPLORATION OF MIDLINE THORACOLUMBAR WOUND, SEROMA CAPSULECTOMY, COMPLEX CLOSURE; Surgeon: Kashmir East MD; Location: MAIN OR; Service: PLS - PLASTIC SURGERY DC THORACENTESIS NEEDLE/CATH PLEURA W/IMAGING 09/05/2017 Left Procedure: THORACENTESIS,NEEDLE OR CATHETER,ASPIRATION OF THE LEFT PLEURAL SPACE; WITH IMAGING GUIDANCE; Surgeon: TRISTAN Rosario; Location: MAIN PULM PROC; Service: PULMONARY DC TENDON SHEATH INCISION 03/13/2018 Finger/Left Procedure: Arthroscopic Left Biceps Tenotomy; Surgeon: Chuck Darby MD; Location: MAIN OR; Service: ORTHOPEDIC ONCOLOGY DC IMPLTJ REVJ/RPSG ITHCL/EDRL CATH SUPPLY CHAIN COORDINATOR W/O BROWN 11/05/2023 Back/Bilateral Procedure: IMPLANTATION OF TUNNELED INTRATHECAL OR EPIDURAL CATHETER, FOR LONG-TERM INFORMATION OPERATOR VIA PUMP; Surgeon: Martin May MD; Location: [facility]; Service: PAIN SERVICE Medical devices from this surgery are in the Medical Devices section. Medical History Medical History Date Comments Renal cell carcinoma Anxiety Hypertension 2014 Hyperlipidemia 2014 Foot-drop left leg Thyroid nodule Thyroid nodule 04/11/2017 Depressive disorder Obstructive sleep apnea syndrome Type 2 diabetes mellitus 05/04/2020 Family History Medical History Relation Name Comments Coronary artery disease Brother 1 NM a t 47 Heart attack Brother 2 Colon cancer Father Diabetes Father Heart failure Father Hypertension Father Anxiety disorder Mother Melanoma Mother Drug abuse Sister 1 Bleeding Disorder Neg Hx Stroke Neg Hx VTE Neg Hx Relation Name Status Comments Brother 1 Alive Brother 2 Alive Daughter Alive Father (Age 75) diagnosed at age 74. passed at age 75. Mother Alive diagnosed at ag e 74. currently 82. She had benign tumors of the tyroid and breast. Adopted Sister 1 (Age 45) of ox ycontin overdose Sister 2 Alive Son Alive Social History Tobacco Use Types Packs/Day Years Used Date Smoking Tobacco: Former Cigarettes Q uit: 2007 Smokeless Tobacco: Never Comments:smoked off and on, smoked 0.5 ppd for total of 3-4 yrs Alcohol Use Standard Drinks/Week Comments Never 0 (1 standard drink = 0.6 oz pur e alcohol) social drinker Sex and Gender Information Value Date Recorded Sex Assigned at Male 04/10/2019 1:27 PM CDT Legal Sex Male 5:37 PM TUNNEL ELASTIC OPERATOR CHAINSTITCH Gender Identity Male 04/10/2019 1:27 PM CDT Sexual Orientation Straight 04/10/2019 1: 27 PM CDT Occupation Industry Job Start Date Job End Date [employer]. Not on file Not on file Not on file Obstetrics History Last Filed Vital Signs Vital Sign Reading Time Taken Comments Blood Pressure 114/74 10/07/2024 3:00 PM TUNNEL ELASTIC OPERATOR CHAINSTITCH Pulse 84 10/07/2024 3:00 PM TUNNEL ELASTIC OPERATOR CHAINSTITCH Temperature 36.9 C (98.4 F) 10/07/2024 2:29 PM CS T Respiratory Rate 17 10/07/2024 3:00 PM TUNNEL ELASTIC OPERATOR CHAINSTITCH Oxygen Saturation 93% 10/07/2024 3:00 PM TUNNEL ELASTIC OPERATOR CHAINSTITCH Inhaled Oxygen Concentration - - Weight 86.5 kg (190 lb 11.2 oz) 10/07/2024 2:29 PM TUNNEL ELASTIC OPERATOR CHAINSTITCH Height 177.8 cm (5' 10") 09/21/2024 10: 12 AM TUNNEL ELASTIC OPERATOR CHAINSTITCH Body Mass Index 27.36 09/21/2024 10:12 AM TUNNEL ELASTIC OPERATOR CHAINSTITCH Plan of Treatment Upcoming Encounters Date Type Department Care Team (Late st Contact Info) Description 10/19/2024 2:30 PM CDT Telemedicine [facility] - Neurosurgery [address] [place] [address], 7th [place] [address] Carolyn Evans MD [address] [place] [phone] [email or web address] 10/20/2024 2:00 PM CDT Consult Gastrointestinal Center - Gastroenterology, Hepatology & Nutrition [address] [place] [address], 7th [place] [address] Edgard Centeno IV, MD [address] [place] [phone] [email or web address] Gil Crespo MD [address] [place] [phone] [email or web address] 10/22/2024 2:45 PM CDT Appointment Radiation Treatment Center [address] [place] [address], 1st [place] [address] Terell Seymour MD [address] [place] [phone] [email or web address] 10/29/2024 9:15 AM CDT Appointment Diagnostic Imaging Center [address] [place] [address], 3rd [place] [address] Cassie Sapp APRN [address] [place] [phone] [email or web address] 12/15/2024 9:00 AM CDT Appointment Diagnostic Laboratory Center [address] [place] [address] Fco Manuel MD [address] [place] [phone] [email or web address] 12/15/2024 10:10 AM CDT Ancillary Procedure CT Imaging [facility], 7th [place] [address] Fco Manuel MD [address] [place] [phone] [email or web address] 12/16/2024 9:30 AM CDT Follow-Up Genitourinary Cancer Center - Oncology [facility], 7th [place] [address] Fco Manuel MD [address] [place] [phone] [email or web address] 01/08/2025 1:00 PM CDT Appointment Pain Management Center [address] [place] [address], 4th [place] [address] Tree Austin APRN [address] [place] [phone] [email or web address] 01/14/2025 8:15 AM CDT Appointment Diagnostic Laboratory Center [address] [place] [address] Kayode Duke APRN [address] [place] [phone] [email or web address] 01/14/2025 10:15 AM CDT Follow-Up Endocrine Center [address] [place] [address], 6th [place] [address] Neno Beyer MD [address] [place] [phone] [email or web address] Health Maintenance Due Date Last Done Comments Pneumococcal Vaccine: 50+ Ye ars (1 of 2 - PCV) 02/06/1992 COVID-19 Vaccine (3 - Pfizer risk series) 06/03/2021 05/06/2021, 04/15/2021 Influenza Vaccine (#1) 2024 Medical Devices Implanted Type Area C Architect Device Identifier Shelf Expiration Date Model / Serial / Lot Autoplex With Hv Cement - [id number] Implanted:Qty: 1 on 01/30/2017 by Carolyn Evans MD at [facility] Implant Midline: Spine Lumbar ANNALISA RIGOBERTO 03/05/2019 0607-687 -000 / [id number] -000 / [id number] Description:Annalisa Rigoberto Aut oplex HV Cement REF# [phone] Lot# [id number] Transconnector Snapon 47-62mm - S Implanted:Qty: 1 on 01/30/2017 by Carolyn Evans MD at [facility] Implant SYNTHES [employer] 04.633.3 47 / / Hakeem Viper2 Straight 80mm, Cocr - [id number] Implanted:Qty: 1 on 01/30/2017 by Carolyn Evans MD at [facility] Implant Midline: Back SYNTHES [employer] 1967-89- 480 / / Synthes Set Screws Implanted:Qty: 6 on 01/30/2017 by Carolyn Evans MD at [facility] Implant Midline: Back SYNTHES [facility] 02 000 / / Depuy Screw 6*55mm Implanted:Qty: 1 on 01/30/2017 by Carolyn Evans MD at [facility] Implant SYNTHES [facility] - 39 / / Description:6x55 screws Depuy Screws 7*55mm Implanted:Qty: 3 on 01/30/2017 by Carolyn Evans MD at [facility] Implant SYNTHES [facility] - 138 / / Description:7 x 55 screws Depuy Screws 7.5*55mm Implanted:Qty: 2 on 01/30/2017 by Carolyn Evans MD at [facility] Implant SYNTHES [facility] / / Description:7.5 x 55 screw Depuy Screws 9*90mm Implanted:Qty: 2 on 01/30/2017 by Carolyn Evans MD at [facility] Implant SYNTHES [facility] 990 / / Description:9 x 90 screw Screw Ti X25 M7 Short Set - [id number] Implanted:Qty: 2 on 01/30/2017 by Carolyn Evans MD at [facility] Implant SYNTHES [facility] 000 / / Depuy Lateral Connectors 20mm Implanted:Qty: 2 on 01/30/2017 by Carolyn Evans MD at [facility] Implant SYNTHES [facility] 98- 020 / / Description:lateral connecto r Medtronic Ascenda Intrathecal Catheter Implanted:Qty: 1 on 11/05/2023 by Martin May MD at [facility] Implant N/A: Back [employer] 10/10/2025 8780 / / [id number] Description:*included in kit with pump, communicator and passer Medtronic Synchromed Ii Infusion Pump 40ml [id number] Implanted:Qty: 1 on 11/05/2023 by Martin May MD at [facility] Implant N/A: Back [employer] 02/15/2025 8637-40 / [id number] / Description:Approved by Dr. Iyer (Neuro attending) ok to proceed on 1.5T & Physics Dr. Yun on 11/28/23 MEDTRONIC PAIN PUMPS [phone] [email or web address] ALL PAIN PUMPS NEED TO BE CHECKED BY PAIN CLINIC 3-24 HOURS POST MRI WITH CONFIRMATION INVOLVING PATIENTS RECIEVING BACLOFEN THERAPY. * PLEASE DOCUMENT THAT PATIENT EDUCATION WAS GIVEN TO HAVE PUMP CHECKED INSIDE PATIENT EXAM. -AOLICIA STOP If patient has baclofen in pump an actual appointment and communication with pain clinic must be verified prior to proceeding with MRI. Warning: Patients receiving intrathecal baclofen therapy (eg, Lioresal Intrathecal) are at higher risk for adverse events, as baclofen withdrawal can lead to a life-threatening condition if not treated promptly and effectively. MR MR Conditional: If the patient is implanted with a Medtronic SynchroMed II or SynchroMed III pump, MRI examinations of the entire body may be safely performed under the following conditions: 1.5-Alecia (T) and 3-T horizontal cylindrical system for hydrogen imaging Radiofrequency (RF) coil: Any type Maximum spatial field gradient of 19T/m (1900 gauss/cm) Maximum gradient slew rate: 200 T/m/s or less per axis Maximum RF field intensity: First Level Controlled Operating Mode Active scan time: The risk of heating increases for active torso scanning durations over 30 minutes Potential for permanent motor stall (PAGE 12) 90 alignment of an implanted pump with the z axis (Figure 1) of 1.5-T and 3-T horizontal, closed-bore magnetic resonance imaging (MRI) scanners can cause MRI induced demagnetization of the internal pump motor magnets, which can result in permanent, nonrecoverable stoppage of the pump. Dbx Mix 10cc - [id number] Implanted:Qty: 1 on 01/30/2017 by Carolyn Evans MD at [facility] Tissue Midline: Back MUSCULOSKELETAL TRANSPLANT FND 09/28/2018 [id number] / [id number] / Dbx Mix 10 - [id number] Implanted:Qty: 1 on 01/30/2017 by Carolyn Evans MD at [facility] Tissue Midline: Back MUSCULOSKELETAL TRANSPLANT FND 07/20/2018 21116 / [id number] 14 / Dbx Mix 10 - [id number] Implanted:Qty: 1 on 01/30/2017 by Carolyn Evans MD at [facility] Tissue Midline: Back MUSCULOSKELETAL TRANSPLANT FND 07/20/2018 48624 / [id number] 16 / Dbx Mix 10 - [id number] Implanted:Qty: 1 on 01/30/2017 by Carolyn Evans MD at [facility] Tissue Midline: Back MUSCULOSKELETAL TRANSPLANT FND 09/28/2018 13046 / [id number] 32 / Procedures Procedure Name Priority Date/Time Associated Diagnosis Comments PUMP - REFILL, REPROGRAMMING Routine 10/07/2024 3:04 PM TUNNEL ELASTIC OPERATOR CHAINSTITCH Neoplasm related pain (acute) (chronic) CT CHEST ABDOMEN PELVIS W CONTRAST Routine 09/20/2024 6:08 PM TUNNEL ELASTIC OPERATOR CHAINSTITCH Secondary malignant neoplasm of liver 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 Secondary malignant neoplasm of right lung POC CREATININE Routine 09/20/2024 5:09 PM TUNNEL ELASTIC OPERATOR CHAINSTITCH MRI PELVIS W WO CONTRAST - MUSCULOSKELETAL Routine 08/20/2024 10:19 AM TUNNEL ELASTIC OPERATOR CHAINSTITCH Secondary malignant neoplasm of liver Secondary malignant neoplasm of right lung Clear cell carcinoma of left kidney 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 Malignant neoplasm of unspecified kidney, except renal pelvis Malignant neoplasm of left kidney, except renal pelvis Secondary malignant neoplasm of retroperitoneum and peritoneum Hypercalcemia PUMP - REFILL, REPROGRAMMING Routine 07/24/2024 8:11 AM TUNNEL ELASTIC OPERATOR CHAINSTITCH Chronic pain Cancer associated pain .CBC Routine 07/14/2024 9:05 AM TUNNEL ELASTIC OPERATOR CHAINSTITCH Secondary malignant neoplasm of liver Secondary malignant neoplasm of right lung Clear cell carcinoma of left kidney 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 Malignant neoplasm of unspecified kidney, except renal pelvis Malignant neoplasm of left kidney, except renal pelvis Secondary malignant neoplasm of retroperitoneum and peritoneum Hypercalcemia LIPASE LEVEL Routine 07/14/2024 9:05 AM TUNNEL ELASTIC OPERATOR CHAINSTITCH Secondary malignant neoplasm of liver Secondary malignant neoplasm of right lung Clear cell carcinoma of left kidney 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 Malignant neoplasm of unspecified kidney, except renal pelvis Malignant neoplasm of left kidney, except renal pelvis Secondary malignant neoplasm of retroperitoneum and peritoneum Hypercalcemia AMYLASE LEVEL Routine 07/14/2024 9:05 AM TUNNEL ELASTIC OPERATOR CHAINSTITCH Secondary malignant neoplasm of liver Secondary malignant neoplasm of right lung Clear cell carcinoma of left kidney 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 Malignant neoplasm of unspecified kidney, except renal pelvis Malignant neoplasm of left kidney, except renal pelvis Secondary malignant neoplasm of retroperitoneum and peritoneum Hypercalcemia COMPREHENSIVE METABOLIC PANEL Routine 07/14/2024 9:05 AM TUNNEL ELASTIC OPERATOR CHAINSTITCH Secondary malignant neoplasm of liver Secondary malignant neoplasm of right lung Clear cell carcinoma of left kidney 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 Malignant neoplasm of unspecified kidney, except renal pelvis Malignant neoplasm of left kidney, except renal pelvis Secondary malignant neoplasm of retroperitoneum and peritoneum Hypercalcemia COMPLETE BLOOD COUNT W/ DIFFERENTIAL Routine 07/14/2024 9:05 AM TUNNEL ELASTIC OPERATOR CHAINSTITCH Secondary malignant neoplasm of liver Secondary malignant neoplasm of right lung Clear cell carcinoma of left kidney 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 Malignant neoplasm of unspecified kidney, except renal pelvis Malignant neoplasm of left kidney, except renal pelvis Secondary malignant neoplasm of retroperitoneum and peritoneum Hypercalcemia IRON LEVEL Routine 07/14/2024 9:05 AM TUNNEL ELASTIC OPERATOR CHAINSTITCH Malignant neoplasm of unspecified kidney, except renal pelvis Secondary malignant neoplasm of retroperitoneum and peritoneum Secondary malignant neoplasm of liver 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 Malignant neoplasm of left kidney, except renal pelvis HEMOGLOBIN A1C Routine 07/14/2024 9:05 AM TUNNEL ELASTIC OPERATOR CHAINSTITCH Type 2 diabetes mellitus with hyperglycemia [E11.65] Thyroid nodule [E04.1] Other specified hypothyroidism [E03.8] Mixed hyperlipidemia [E78.2] LIPID PANEL Routine 07/14/2024 9:05 AM TUNNEL ELASTIC OPERATOR CHAINSTITCH Type 2 diabetes mellitus with hyperglycemia [E11.65] Thyroid nodule [E04.1] Other specified hypothyroidism [E03.8] Mixed hyperlipidemia [E78.2] THYROID STIMULATING HORMONE Routine 07/14/2024 9:05 AM TUNNEL ELASTIC OPERATOR CHAINSTITCH Type 2 diabetes mellitus with hyperglycemia [E11.65] Thyroid nodule [E04.1] Other specified hypothyroidism [E03.8] Mixed hyperlipidemia [E78.2] FREE THYROXINE Routine 07/14/2024 9:05 AM TUNNEL ELASTIC OPERATOR CHAINSTITCH Type 2 diabetes mellitus with hyperglycemia [E11.65] Thyroid nodule [E04.1] Other specified hypothyroidism [E03.8] Mixed hyperlipidemia [E78.2] CT CHEST ABDOMEN PELVIS W CONTRAST Routine 06/28/2024 1:10 PM TUNNEL ELASTIC OPERATOR CHAINSTITCH Secondary malignant neoplasm of liver 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 Secondary malignant neoplasm of right lung .CBC Routine 06/28/2024 10:30 AM TUNNEL ELASTIC OPERATOR CHAINSTITCH Secondary malignant neoplasm of liver 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 Secondary malignant neoplasm of right lung LIPASE LEVEL Routine 06/28/2024 10:30 AM TUNNEL ELASTIC OPERATOR CHAINSTITCH Secondary malignant neoplasm of liver 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 Secondary malignant neoplasm of right lung AMYLASE LEVEL Routine 06/28/2024 10:30 AM TUNNEL ELASTIC OPERATOR CHAINSTITCH Secondary malignant neoplasm of liver 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 Secondary malignant neoplasm of right lung FREE THYROXINE Routine 06/28/2024 10:30 AM TUNNEL ELASTIC OPERATOR CHAINSTITCH Secondary malignant neoplasm of liver 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 Secondary malignant neoplasm of right lung THYROID STIMULATING HORMONE Routine 06/28/2024 10:30 AM TUNNEL ELASTIC OPERATOR CHAINSTITCH Secondary malignant neoplasm of liver 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 Secondary malignant neoplasm of right lung COMPREHENSIVE METABOLIC PANEL Routine 06/28/2024 10:30 AM TUNNEL ELASTIC OPERATOR CHAINSTITCH Secondary malignant neoplasm of liver 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 Secondary malignant neoplasm of right lung COMPLETE BLOOD COUNT W/ DIFFERENTIAL Routine 06/28/2024 10:30 AM TUNNEL ELASTIC OPERATOR CHAINSTITCH Secondary malignant neoplasm of liver 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 Secondary malignant neoplasm of right lung TRANSFERRIN Add-On 06/17/2024 9:55 AM TUNNEL ELASTIC OPERATOR CHAINSTITCH Clear cell carcinoma of left kidney .CBC Routine 06/17/2024 9:55 AM TUNNEL ELASTIC OPERATOR CHAINSTITCH Secondary malignant neoplasm of liver Secondary malignant neoplasm of right lung Clear cell carcinoma of left kidney 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 Hypothyroidism, not otherwise specified Malignant neoplasm of unspecified kidney, except renal pelvis Malignant neoplasm of left kidney, except renal pelvis Secondary malignant neoplasm of retroperitoneum and peritoneum LIPASE LEVEL Routine 06/17/2024 9:55 AM TUNNEL ELASTIC OPERATOR CHAINSTITCH Secondary malignant neoplasm of liver Secondary malignant neoplasm of right lung Clear cell carcinoma of left kidney 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 Hypothyroidism, not otherwise specified Malignant neoplasm of unspecified kidney, except renal pelvis Malignant neoplasm of left kidney, except renal pelvis Secondary malignant neoplasm of retroperitoneum and peritoneum AMYLASE LEVEL Routine 06/17/2024 9:55 AM TUNNEL ELASTIC OPERATOR CHAINSTITCH Secondary malignant neoplasm of liver Secondary malignant neoplasm of right lung Clear cell carcinoma of left kidney 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 Hypothyroidism, not otherwise specified Malignant neoplasm of unspecified kidney, except renal pelvis Malignant neoplasm of left kidney, except renal pelvis Secondary malignant neoplasm of retroperitoneum and peritoneum FREE THYROXINE Routine 06/17/2024 9:55 AM TUNNEL ELASTIC OPERATOR CHAINSTITCH Secondary malignant neoplasm of liver Secondary malignant neoplasm of right lung Clear cell carcinoma of left kidney 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 Hypothyroidism, not otherwise specified Malignant neoplasm of unspecified kidney, except renal pelvis Malignant neoplasm of left kidney, except renal pelvis Secondary malignant neoplasm of retroperitoneum and peritoneum THYROID STIMULATING HORMONE Routine 06/17/2024 9:55 AM TUNNEL ELASTIC OPERATOR CHAINSTITCH Secondary malignant neoplasm of liver Secondary malignant neoplasm of right lung Clear cell carcinoma of left kidney 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 Hypothyroidism, not otherwise specified Malignant neoplasm of unspecified kidney, except renal pelvis Malignant neoplasm of left kidney, except renal pelvis Secondary malignant neoplasm of retroperitoneum and peritoneum COMPREHENSIVE METABOLIC PANEL Routine 06/17/2024 9:55 AM TUNNEL ELASTIC OPERATOR CHAINSTITCH Secondary malignant neoplasm of liver Secondary malignant neoplasm of right lung Clear cell carcinoma of left kidney 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 Hypothyroidism, not otherwise specified Malignant neoplasm of unspecified kidney, except renal pelvis Malignant neoplasm of left kidney, except renal pelvis Secondary malignant neoplasm of retroperitoneum and peritoneum COMPLETE BLOOD COUNT W/ DIFFERENTIAL Routine 06/17/2024 9:55 AM TUNNEL ELASTIC OPERATOR CHAINSTITCH Secondary malignant neoplasm of liver Secondary malignant neoplasm of right lung Clear cell carcinoma of left kidney 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 Hypothyroidism, not otherwise specified Malignant neoplasm of unspecified kidney, except renal pelvis Malignant neoplasm of left kidney, except renal pelvis Secondary malignant neoplasm of retroperitoneum and peritoneum POC GLUCOSE SCREEN Routine 06/01/2024 9: 40 AM CDT MRI LUMBAR SPINE W WO CONTRAST Routine 06/01/2024 9:37 AM CDT Fracture of lumbar spine <Open; Initial> 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 POC CHEM 8 Routine 05/27/2024 12:55 PM CDT POC GLUCOSE SCREEN Routine 05/27/2024 12:09 PM CDT FERRITIN Add-On 05/20/2024 8:41 AM CDT Secondary malignant neoplasm of liver Secondary malignant neoplasm of right lung Clear cell carcinoma of left kidney 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 Hypothyroidism, not otherwise specified Malignant neoplasm of unspecified kidney, except renal pelvis Malignant neoplasm of left kidney, except renal pelvis 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 IRON LEVEL Add-On 05/20/2024 8:41 AM CDT Secondary malignant neoplasm of liver Secondary malignant neoplasm of right lung Clear cell carcinoma of left kidney 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 Hypothyroidism, not otherwise specified Malignant neoplasm of unspecified kidney, except renal pelvis Malignant neoplasm of left kidney, except renal pelvis 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 .CBC Routine 05/20/2024 8:41 AM CDT Secondary malignant neoplasm of liver Secondary malignant neoplasm of right lung Clear cell carcinoma of left kidney 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 Hypothyroidism, not otherwise specified Malignant neoplasm of unspecified kidney, except renal pelvis Malignant neoplasm of left kidney, except renal pelvis LIPASE LEVEL Routine 05/20/2024 8:41 AM CDT Secondary malignant neoplasm of liver Secondary malignant neoplasm of right lung Clear cell carcinoma of left kidney 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 Hypothyroidism, not otherwise specified Malignant neoplasm of unspecified kidney, except renal pelvis Malignant neoplasm of left kidney, except renal pelvis AMYLASE LEVEL Routine 05/20/2024 8:41 AM CDT Secondary malignant neoplasm of liver Secondary malignant neoplasm of right lung Clear cell carcinoma of left kidney 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 Hypothyroidism, not otherwise specified Malignant neoplasm of unspecified kidney, except renal pelvis Malignant neoplasm of left kidney, except renal pelvis FREE THYROXINE Routine 05/20/2024 8:41 AM CDT Secondary malignant neoplasm of liver Secondary malignant neoplasm of right lung Clear cell carcinoma of left kidney 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 Hypothyroidism, not otherwise specified Malignant neoplasm of unspecified kidney, except renal pelvis Malignant neoplasm of left kidney, except renal pelvis THYROID STIMULATING HORMONE Routine 05/20/2024 8:41 AM CDT Secondary malignant neoplasm of liver Secondary malignant neoplasm of right lung Clear cell carcinoma of left kidney 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 Hypothyroidism, not otherwise specified Malignant neoplasm of unspecified kidney, except renal pelvis Malignant neoplasm of left kidney, except renal pelvis COMPREHENSIVE METABOLIC PANEL Routine 05/20/2024 8:41 AM CDT Secondary malignant neoplasm of liver Secondary malignant neoplasm of right lung Clear cell carcinoma of left kidney 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 Hypothyroidism, not otherwise specified Malignant neoplasm of unspecified kidney, except renal pelvis Malignant neoplasm of left kidney, except renal pelvis COMPLETE BLOOD COUNT W/ DIFFERENTIAL Routine 05/20/2024 8:41 AM CDT Secondary malignant neoplasm of liver Secondary malignant neoplasm of right lung Clear cell carcinoma of left kidney 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 Hypothyroidism, not otherwise specified Malignant neoplasm of unspecified kidney, except renal pelvis Malignant neoplasm of left kidney, except renal pelvis PUMP - REFILL, REPROGRAMMING Routine 05/05/2024 9:34 AM CDT Chronic pain .CBC Routine 04/22/2024 8:11 AM CDT Secondary malignant neoplasm of liver Secondary malignant neoplasm of right lung Clear cell carcinoma of left kidney 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 Hypothyroidism, not otherwise specified Malignant neoplasm of unspecified kidney, except renal pelvis Malignant neoplasm of left kidney, except renal pelvis LIPASE LEVEL Routine 04/22/2024 8:11 AM CDT Secondary malignant neoplasm of liver Secondary malignant neoplasm of right lung Clear cell carcinoma of left kidney 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 Hypothyroidism, not otherwise specified Malignant neoplasm of unspecified kidney, except renal pelvis Malignant neoplasm of left kidney, except renal pelvis AMYLASE LEVEL Routine 04/22/2024 8:11 AM CDT Secondary malignant neoplasm of liver Secondary malignant neoplasm of right lung Clear cell carcinoma of left kidney 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 Hypothyroidism, not otherwise specified Malignant neoplasm of unspecified kidney, except renal pelvis Malignant neoplasm of left kidney, except renal pelvis FREE THYROXINE Routine 04/22/2024 8:11 AM CDT Secondary malignant neoplasm of liver Secondary malignant neoplasm of right lung Clear cell carcinoma of left kidney 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 Hypothyroidism, not otherwise specified Malignant neoplasm of unspecified kidney, except renal pelvis Malignant neoplasm of left kidney, except renal pelvis THYROID STIMULATING HORMONE Routine 04/22/2024 8:11 AM CDT Secondary malignant neoplasm of liver Secondary malignant neoplasm of right lung Clear cell carcinoma of left kidney 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 Hypothyroidism, not otherwise specified Malignant neoplasm of unspecified kidney, except renal pelvis Malignant neoplasm of left kidney, except renal pelvis COMPREHENSIVE METABOLIC PANEL Routine 04/22/2024 8:11 AM CDT Secondary malignant neoplasm of liver Secondary malignant neoplasm of right lung Clear cell carcinoma of left kidney 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 Hypothyroidism, not otherwise specified Malignant neoplasm of unspecified kidney, except renal pelvis Malignant neoplasm of left kidney, except renal pelvis COMPLETE BLOOD COUNT W/ DIFFERENTIAL Routine 04/22/2024 8:11 AM CDT Secondary malignant neoplasm of liver Secondary malignant neoplasm of right lung Clear cell carcinoma of left kidney 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 Hypothyroidism, not otherwise specified Malignant neoplasm of unspecified kidney, except renal pelvis Malignant neoplasm of left kidney, except renal pelvis CT CHEST ABDOMEN PELVIS W CONTRAST Routine 03/29/2024 6:25 PM CDT Secondary malignant neoplasm of liver Secondary malignant neoplasm of right lung Clear cell carcinoma of left kidney 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 .CBC Routine 03/29/2024 4:31 PM CDT Secondary malignant neoplasm of liver Secondary malignant neoplasm of right lung Clear cell carcinoma of left kidney 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 LIPASE LEVEL Routine 03/29/2024 4:31 PM CDT Secondary malignant neoplasm of liver Secondary malignant neoplasm of right lung Clear cell carcinoma of left kidney 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 AMYLASE LEVEL Routine 03/29/2024 4:31 PM CDT Secondary malignant neoplasm of liver Secondary malignant neoplasm of right lung Clear cell carcinoma of left kidney 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 FREE THYROXINE Routine 03/29/2024 4:31 PM CDT Secondary malignant neoplasm of liver Secondary malignant neoplasm of right lung Clear cell carcinoma of left kidney 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 THYROID STIMULATING HORMONE Routine 03/29/2024 4:31 PM CDT Secondary malignant neoplasm of liver Secondary malignant neoplasm of right lung Clear cell carcinoma of left kidney 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 COMPREHENSIVE METABOLIC PANEL Routine 03/29/2024 4:31 PM CDT Secondary malignant neoplasm of liver Secondary malignant neoplasm of right lung Clear cell carcinoma of left kidney 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 COMPLETE BLOOD COUNT W/ DIFFERENTIAL Routine 03/29/2024 4:31 PM CDT Secondary malignant neoplasm of liver Secondary malignant neoplasm of right lung Clear cell carcinoma of left kidney 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 .CBC Routine 03/25/2024 11:35 AM CDT Secondary malignant neoplasm of liver Secondary malignant neoplasm of right lung Clear cell carcinoma of left kidney 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 Hypothyroidism, not otherwise specified Malignant neoplasm of unspecified kidney, except renal pelvis Malignant neoplasm of left kidney, except renal pelvis Anemia in chronic kidney disease LIPASE LEVEL Routine 03/25/2024 11:35 AM CDT Secondary malignant neoplasm of liver Secondary malignant neoplasm of right lung Clear cell carcinoma of left kidney 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 Hypothyroidism, not otherwise specified Malignant neoplasm of unspecified kidney, except renal pelvis Malignant neoplasm of left kidney, except renal pelvis Anemia in chronic kidney disease AMYLASE LEVEL Routine 03/25/2024 11:35 AM CDT Secondary malignant neoplasm of liver Secondary malignant neoplasm of right lung Clear cell carcinoma of left kidney 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 Hypothyroidism, not otherwise specified Malignant neoplasm of unspecified kidney, except renal pelvis Malignant neoplasm of left kidney, except renal pelvis Anemia in chronic kidney disease FREE THYROXINE Routine 03/25/2024 11:35 AM CDT Secondary malignant neoplasm of liver Secondary malignant neoplasm of right lung Clear cell carcinoma of left kidney 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 Hypothyroidism, not otherwise specified Malignant neoplasm of unspecified kidney, except renal pelvis Malignant neoplasm of left kidney, except renal pelvis Anemia in chronic kidney disease THYROID STIMULATING HORMONE Routine 03/25/2024 11:35 AM CDT Secondary malignant neoplasm of liver Secondary malignant neoplasm of right lung Clear cell carcinoma of left kidney 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 Hypothyroidism, not otherwise specified Malignant neoplasm of unspecified kidney, except renal pelvis Malignant neoplasm of left kidney, except renal pelvis Anemia in chronic kidney disease COMPREHENSIVE METABOLIC PANEL Routine 03/25/2024 11:35 AM CDT Secondary malignant neoplasm of liver Secondary malignant neoplasm of right lung Clear cell carcinoma of left kidney 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 Hypothyroidism, not otherwise specified Malignant neoplasm of unspecified kidney, except renal pelvis Malignant neoplasm of left kidney, except renal pelvis Anemia in chronic kidney disease COMPLETE BLOOD COUNT W/ DIFFERENTIAL Routine 03/25/2024 11:35 AM CDT Secondary malignant neoplasm of liver Secondary malignant neoplasm of right lung Clear cell carcinoma of left kidney 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 Hypothyroidism, not otherwise specified Malignant neoplasm of unspecified kidney, except renal pelvis Malignant neoplasm of left kidney, except renal pelvis Anemia in chronic kidney disease .CBC Routine 02/26/2024 12:42 PM CDT Secondary malignant neoplasm of liver Secondary malignant neoplasm of right lung Clear cell carcinoma of left kidney 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 LIPASE LEVEL Routine 02/26/2024 12:42 PM CDT Secondary malignant neoplasm of liver Secondary malignant neoplasm of right lung Clear cell carcinoma of left kidney 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 AMYLASE LEVEL Routine 02/26/2024 12:42 PM CDT Secondary malignant neoplasm of liver Secondary malignant neoplasm of right lung Clear cell carcinoma of left kidney 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 FREE THYROXINE Routine 02/26/2024 12:42 PM CDT Secondary malignant neoplasm of liver Secondary malignant neoplasm of right lung Clear cell carcinoma of left kidney 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 THYROID STIMULATING HORMONE Routine 02/26/2024 12:42 PM CDT Secondary malignant neoplasm of liver Secondary malignant neoplasm of right lung Clear cell carcinoma of left kidney 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 COMPREHENSIVE METABOLIC PANEL Routine 02/26/2024 12:42 PM CDT Secondary malignant neoplasm of liver Secondary malignant neoplasm of right lung Clear cell carcinoma of left kidney 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 COMPLETE BLOOD COUNT W/ DIFFERENTIAL Routine 02/26/2024 12:42 PM CDT Secondary malignant neoplasm of liver Secondary malignant neoplasm of right lung Clear cell carcinoma of left kidney 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 CT CHEST WO CONTRAST Routine 01/24/2024 1:05 PM CDT Multiple nodules of lung .CBC Routine 01/24/2024 12:18 PM CDT Secondary malignant neoplasm of liver Secondary malignant neoplasm of right lung Clear cell carcinoma of left kidney Malignant neoplasm of unspecified kidney, except renal pelvis Secondary malignant neoplasm of retroperitoneum and peritoneum 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 Malignant neoplasm of left kidney, except renal pelvis Other iron deficiency anemia COMPLETE BLOOD COUNT W/ DIFFERENTIAL Routine 01/24/2024 12:18 PM CDT Secondary malignant neoplasm of liver Secondary malignant neoplasm of right lung Clear cell carcinoma of left kidney Malignant neoplasm of unspecified kidney, except renal pelvis Secondary malignant neoplasm of retroperitoneum and peritoneum 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 Malignant neoplasm of left kidney, except renal pelvis Other iron deficiency anemia IRON LEVEL Routine 01/24/2024 12:18 PM CDT Secondary malignant neoplasm of liver Secondary malignant neoplasm of right lung Clear cell carcinoma of left kidney LIPASE LEVEL Routine 01/24/2024 12:18 PM CDT Secondary malignant neoplasm of liver Secondary malignant neoplasm of right lung Clear cell carcinoma of left kidney AMYLASE LEVEL Routine 01/24/2024 12:18 PM CDT Secondary malignant neoplasm of liver Secondary malignant neoplasm of right lung Clear cell carcinoma of left kidney FREE THYROXINE Routine 01/24/2024 12:18 PM CDT Secondary malignant neoplasm of liver Secondary malignant neoplasm of right lung Clear cell carcinoma of left kidney THYROID STIMULATING HORMONE Routine 01/24/2024 12:18 PM CDT Secondary malignant neoplasm of liver Secondary malignant neoplasm of right lung Clear cell carcinoma of left kidney COMPREHENSIVE METABOLIC PANEL Routine 01/24/2024 12:18 PM CDT Secondary malignant neoplasm of liver Secondary malignant neoplasm of right lung Clear cell carcinoma of left kidney URINALYSIS WITH MICROSCOPIC Routine 01/02/2024 10:44 AM CDT Secondary malignant neoplasm of liver Secondary malignant neoplasm of right lung Clear cell carcinoma of left kidney POC GLUCOSE SCREEN Routine 12/23/2023 2: 46 PM CDT .CBC Routine 12/23/2023 10:21 AM CDT Secondary malignant neoplasm of liver Secondary malignant neoplasm of right lung Clear cell carcinoma of left kidney LIPASE LEVEL Routine 12/23/2023 10:21 AM CDT Secondary malignant neoplasm of liver Secondary malignant neoplasm of right lung Clear cell carcinoma of left kidney AMYLASE LEVEL Routine 12/23/2023 10:21 AM CDT Secondary malignant neoplasm of liver Secondary malignant neoplasm of right lung Clear cell carcinoma of left kidney FREE THYROXINE Routine 12/23/2023 10:21 AM CDT Secondary malignant neoplasm of liver Secondary malignant neoplasm of right lung Clear cell carcinoma of left kidney THYROID STIMULATING HORMONE Routine 12/23/2023 10:21 AM CDT Secondary malignant neoplasm of liver Secondary malignant neoplasm of right lung Clear cell carcinoma of left kidney COMPREHENSIVE METABOLIC PANEL Routine 12/23/2023 10:21 AM CDT Secondary malignant neoplasm of liver Secondary malignant neoplasm of right lung Clear cell carcinoma of left kidney COMPLETE BLOOD COUNT W/ DIFFERENTIAL Routine 12/23/2023 10:21 AM CDT Secondary malignant neoplasm of liver Secondary malignant neoplasm of right lung Clear cell carcinoma of left kidney .CBC Routine 11/30/2023 2:48 AM CDT PHOSPHORUS LEVEL Routine 11/30/2023 2:48 AM CDT COMPLETE BLOOD COUNT W/ DIFFERENTIAL Routine 11/30/2023 2:48 AM CDT MAGNESIUM LEVEL Routine 11/30/2023 2:48 AM CDT MRI PELVIS W WO CONTRAST STAT 11/29/2023 6:[address] ASSOCIATE BROKER SIMULATION WITHOUT CONTRAST Routine 11/29/2023 2:11 PM CDT 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 CT CHEST ABDOMEN PELVIS W CONTRAST Routine 11/29/2023 10:42 AM CDT C REACTIVE PROTEIN Add-On 11/29/2023 4: 18 AM CDT .CBC Routine 11/29/2023 4:18 AM CDT PHOSPHORUS LEVEL Routine 11/29/2023 4:18 AM CDT COMPLETE BLOOD COUNT W/ DIFFERENTIAL Routine 11/29/2023 4:18 AM CDT MAGNESIUM LEVEL Routine 11/29/2023 4:18 AM CDT BASIC METABOLIC PANEL, CALCIUM TOTAL Routine 11/29/2023 4:18 AM CDT MRI CERVICAL THORACIC LUMBAR SPINE W WO CONTRAST STAT 11/28/2023 8:[address] LUMBAR SPINE WO CONTRAST STAT 11/28/2023 7:[address] THORACIC SPINE WO CONTRAST STAT 11/28/2023 7:08 AM CDT .CBC Routine 11/28/2023 4:30 AM CDT CALCIUM IONIZED, VENOUS Routine 11/28/2023 4:30 AM CDT BASIC METABOLIC PANEL, CALCIUM IONIZED Routine 11/28/2023 4:30 AM CDT PHOSPHORUS LEVEL Routine 11/28/2023 4:30 AM CDT MAGNESIUM LEVEL Routine 11/28/2023 4:30 AM CDT COMPLETE BLOOD COUNT W/ DIFFERENTIAL Routine 11/28/2023 4:30 AM CDT BASIC METABOLIC PANEL, CALCIUM IONIZED Routine 11/28/2023 4:30 AM CDT HISTORICAL ABORH STAT 11/27/2023 4:52 PM CDT .CBC Routine 11/27/2023 4:04 PM CDT PHOSPHORUS LEVEL Routine 11/27/2023 4:04 PM CDT MAGNESIUM LEVEL Routine 11/27/2023 4:04 PM CDT COMPREHENSIVE METABOLIC PANEL Routine 11/27/2023 4:04 PM CDT TYPE AND SCREEN STAT 11/27/2023 4:04 PM CDT APTT Routine 11/27/2023 4:04 PM CDT PROTHROMBIN TIME Routine 11/27/2023 4:04 PM CDT COMPLETE BLOOD COUNT W/ DIFFERENTIAL Routine 11/27/2023 4:04 PM CDT URINALYSIS WITH MICROSCOPIC IF INDICATED Routine 11/27/2023 3:57 PM CDT URINE CULTURE Routine 11/27/2023 3:57 PM CDT .CBC Routine 11/13/2023 11:20 AM CDT Secondary malignant neoplasm of retroperitoneum and peritoneum Secondary malignant neoplasm of liver 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 Malignant neoplasm of left kidney, except renal pelvis Clear cell carcinoma of left kidney Secondary malignant neoplasm of right lung Malignant neoplasm of unspecified kidney, except renal pelvis LIPASE LEVEL Routine 11/13/2023 11:20 AM CDT Secondary malignant neoplasm of retroperitoneum and peritoneum Secondary malignant neoplasm of liver 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 Malignant neoplasm of left kidney, except renal pelvis Clear cell carcinoma of left kidney Secondary malignant neoplasm of right lung Malignant neoplasm of unspecified kidney, except renal pelvis AMYLASE LEVEL Routine 11/13/2023 11:20 AM CDT Secondary malignant neoplasm of retroperitoneum and peritoneum Secondary malignant neoplasm of liver 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 Malignant neoplasm of left kidney, except renal pelvis Clear cell carcinoma of left kidney Secondary malignant neoplasm of right lung Malignant neoplasm of unspecified kidney, except renal pelvis FREE THYROXINE Routine 11/13/2023 11:20 AM CDT Secondary malignant neoplasm of retroperitoneum and peritoneum Secondary malignant neoplasm of liver 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 Malignant neoplasm of left kidney, except renal pelvis Clear cell carcinoma of left kidney Secondary malignant neoplasm of right lung Malignant neoplasm of unspecified kidney, except renal pelvis THYROID STIMULATING HORMONE Routine 11/13/2023 11:20 AM CDT Secondary malignant neoplasm of retroperitoneum and peritoneum Secondary malignant neoplasm of liver 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 Malignant neoplasm of left kidney, except renal pelvis Clear cell carcinoma of left kidney Secondary malignant neoplasm of right lung Malignant neoplasm of unspecified kidney, except renal pelvis COMPREHENSIVE METABOLIC PANEL Routine 11/13/2023 11:20 AM CDT Secondary malignant neoplasm of retroperitoneum and peritoneum Secondary malignant neoplasm of liver 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 Malignant neoplasm of left kidney, except renal pelvis Clear cell carcinoma of left kidney Secondary malignant neoplasm of right lung Malignant neoplasm of unspecified kidney, except renal pelvis COMPLETE BLOOD COUNT W/ DIFFERENTIAL Routine 11/13/2023 11:20 AM CDT Secondary malignant neoplasm of retroperitoneum and peritoneum Secondary malignant neoplasm of liver 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 Malignant neoplasm of left kidney, except renal pelvis Clear cell carcinoma of left kidney Secondary malignant neoplasm of right lung Malignant neoplasm of unspecified kidney, except renal pelvis POC GLUCOSE SCREEN Routine 11/05/2023 5: 11 PM CDT POC GLUCOSE SCREEN Routine 11/05/2023 4: 39 PM CDT FL PORTABLE FLUOROSCOPY Routine 11/05/2023 4:10 PM CDT Cancer associated pain DC [id number] REVJ/RPSG ITHCL/EDRL CATH SUPPLY CHAIN COORDINATOR W/O BROWN 11/05/2023 2:19 PM CDT Cancer associated pain Special Needs [id number] POC GLUCOSE SCREEN Routine 11/05/2023 2: 12 PM CDT .CBC Routine 11/04/2023 11:42 AM CDT Cancer associated pain COMPLETE BLOOD COUNT W/ DIFFERENTIAL Routine 11/04/2023 11:42 AM CDT Cancer associated pain .CBC Routine 11/02/2023 8:41 PM CDT APTT Routine 11/02/2023 8:41 PM CDT PROTHROMBIN TIME Routine 11/02/2023 8:41 PM CDT PHOSPHORUS LEVEL Routine 11/02/2023 8:41 PM CDT MAGNESIUM LEVEL Routine 11/02/2023 8:41 PM CDT COMPREHENSIVE METABOLIC PANEL Routine 11/02/2023 8:41 PM CDT COMPLETE BLOOD COUNT W/ DIFFERENTIAL Routine 11/02/2023 8:41 PM CDT PAIN MANAGEMENT FLUOROSCOPY Routine 10/25/2023 9:08 AM CDT Cancer associated pain after 10/16/2023 Results * PUMP - REFILL, REPROGRAMMING (10/07/2024 3:04 PM TUNNEL ELASTIC OPERATOR CHAINSTITCH) Narrative Tree Austin APRN - 10/07/2024 3:04 PM TUNNEL ELASTIC OPERATOR CHAINSTITCH Tree Austin APRN 10/07/2024 3:26 PM Pump - refill, reprogramming Site: abdomen Laterality (if applicable): left Date/Time: 10/07/2024 3:04 PM Provider Information: Performed by: Tree Austin APRN Authorized by: Tree Austin APRN [employer] Worker present?: no Patient Diagnosis: Pre-operative diagnosis: Chronic cancer pain Post-operative diagnosis: unchanged Indication: Indications for procedure: to provide definitive treatment Anesthesia: Local anesthesia used?: Yes Local anesthetic: lidocaine 1% without epinephrine Anesthetic total (ml): 1 Sedation: Patient sedated?: patient not sedated Procedure Details: PAIN MEDICINE CLINIC PROCEDURE NOTE Patient: Raf Pearson Age: 49 y.o. Attending: Dr. May Date of Visit:October 07, 2024 Procedure performed by- Tree Austin APN PROCEDURE(S) PERFORMED: 1. Intrathecal Pump Refill and Complex Programming. SUPPLIES: Portable [employer] Bakeshop Cleaner, Refill kit Painpump expiration jul 2030 INDICATION FOR THE PROCEDURE: Raf Pearson is a 49 y.o.-year-old male with a history of metastatic RCC who presents for evaluation of chronic back pain, iliac/pelvic/sacral pain secondary to metastasis. He received a L LOLLY on 07/26/23, and an ITP implant 11/05/23. The patient stated that they were in their usual state of health or recent infections. Therefore, the plan is for a refill and reprogramming of their intrathecal pump.The indications, risks, benefits, and alternatives were explained to the pt. Pt agreed and informed consent obtained INTERIM HISTORY: Pain controlled with current dose of IT pump. Uses 2 ptm per day Pain severity in the last week: (0-10, 0 being none, 10 being worst) Worst Pain: 5 Least Pain: 1 Average Pain: 2 Current Pain: 1 Personal Pain Goal: 1 : Pain Medications gabapentin (NEURONTIN) 600 mg tablet TAKE TWO (2) TABLETS BY MOUTH THREE TIMES A DAY. HYDROmorphone PF 10 mg/mL, BUPivacaine PF 10 mg/mL in sodium chloride 0.9% (PF) 20 mL intrathecal pump by intrathecal route continuous. PTM use - 2 per day Naloxone available --yes PROCEDURE IN DETAIL: A time out was performed Tree Austin APN per [facility] protocol to verify patient name, date of , intrathecal pump site, medication, concentration,route and interval since last refill. The pump was interrogated via telemetry (portable cobol programmer) to assess pump status, current settings, and expected reservoir volume. Current settings recorded for reference. The injection site was prepared on left lower abdomen, cleaned with povidone-iodine and a fenestrated drape was placed to cover pump site. The pump reservoir port was located using the sterile template provided in the refill kit for the above pump model. Using the included sterile supplies a 22g Trotter needle, syringe, and a clamped syringe tubing the pump was accessed successfully. The tubing was then unclamped and the old solution was aspirated. The aspirated amount 8 ml was compared with the expected reservoir volume 8.7 ml. The tubing was clamped, using sterile technique the medications and concentrations were verified and drawn up in a sterile syringe, a 0.2 micron filter was attached to the new syringe containing the BUPIVACAINE AND DILAUDID , primed the filter then attached to the tubing while ensuring needle placement was secured. The tubing was unclamped and negative pressure was observed. The new solution was injected at a rate no greater than 1ml every 3 seconds and at the half way point 5ml of clear fluid was aspirated and then re-instilled to ensure the needle remained in the reservoir port. Total volume filled 40 ml, needle was removed and the site covered with a sterile bandage. The patient tolerated the procedure well. The pump was reprogrammed via telemetry (portable [employer] cobol programmer) to reflect refill and setting changes. CURRENT PUMP SETTINGS: Next tentative refill date-01/08/25 Next alarm date -03/17/25 Procedure order placed, updated IT pump tracker. Wasted aspirated amount by TIFFANIE Kirk Disposition: Monitored patient in room after the procedure for about 30 minutes, no complications observed, discharged in stable condition. Tree Austin,YADI,FORM BUILDER,HOTEL GENERAL MANAGER-BC [facility] [place] Specimen(s) Removed: Specimen(s) removed: no specimen collected Estimated Blood Loss: Estimated blood loss: none Complications: Complications: none Patient Disposition: Patient disposition: discharge to home us Tree Austin APRN PROCEDURE/MINOR SURGICAL ORDE RABLES Final Result * CT Chest Abdomen Pelvis with Contrast (09/20/2024 6:08 PM TUNNEL ELASTIC OPERATOR CHAINSTITCH) Only the most recent of4 resultswithin the time period is included. Anatomical Region Laterality Modality Abdomen, Pelvis, Chest Computed Tomography 09/21/2024 7:55 AM TUNNEL ELASTIC OPERATOR CHAINSTITCH Impressions 09/21/2024 8:31 AM TUNNEL ELASTIC OPERATOR CHAINSTITCH 1. Interval resolution the previously seen largest metastasis in the left lower lobe. 2. Small interval increase in size in the pulmonary nodule in the left lung base and other scattered subcentimeter pulmonary nodules can continue to be followed. 3. Minimal interval increase in size in the metastatic lesion involving the sacrum. 4. Small interval increase in size in the retroperitoneal lymph nodes that can be reevaluated on the next follow-up study. ACTIONABLE ITEMS/RECOMMENDATIONS*: None. *An Actionable Finding is a finding that may be unrelated to the original reason for imaging but potentially actionable, meaning further investigation may be necessary. The Actionable Findings Vigilance Unit (AFVU) assists medical providers with responding to additional radiologic findings that are unexpected and potentially actionable. Narrative 09/21/2024 8:31 AM TUNNEL ELASTIC OPERATOR CHAINSTITCH FULL RESULT: Examination: CT CHEST ABDOMEN PELVIS W CONTRAST on 09/20/2024 6:08 PM. Clinical History: Secondary malignant neoplasm of liver 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 Secondary malignant neoplasm of right lung. Indication: Therapeutic response assessment. Comparison: 06/28/2024. Technique: CT CHEST ABDOMEN PELVIS W CONTRAST. Findings: CHEST: Lungs and Pleura: Interval resolution the previously seen mass in the left lower lobe. No significant change in the 6 mm nodule in the right upper lobe (series 4 image 41). Nodularity at the left lung base is slightly more prominent currently measuring 5 mm (series 4 image 107) compared to 3 mm previously and can be followed. Few sub-5 mm pulmonary nodules again seen. For example, as seen on series 4 images 71, 73, 76, 80, 99. They can continue to be followed. No pleural effusion. Cardiomediastinum: The heart is normal in size. No pericardial effusion. Lymph nodes: No lymphadenopathy. ABDOMEN AND PELVIS: Hepatobiliary: Slightly limited evaluation due to presence of artifacts from respiratory motion. No suspicious hepatic lesion. No biliary dilatation. No cholecystitis. Spleen: Minimally prominent spleen. Pancreas: Stable 9 mm hypervascular lesion in the head of the pancreas (series 3 image 209). Adrenal Glands: No mass in the right adrenal gland. Kidneys, Ureters, Bladder: Patient is status post left nephrectomy. Again seen cysts in the right kidney. There is a small interval increase in size in one of the hypodensities/cyst currently measuring 1.6 cm (image 228) compared to 1.4 cm previously and this can be followed. No hydronephrosis of the right kidney. Diffuse mild wall thickening of the urinary bladder. Gastrointestinal Tract: No obstruction. Peritoneum/Retroperitoneum: No ascites. Lymph Nodes: Interval increase in size in the retroperitoneal lymph nodes. For example, interaortocaval lymph node currently measuring 1.0 cm (series 3 image 239) compared to 8 mm previously. Additional interaortocaval lymph node is also slightly more prominent currently measuring 8 mm (image 222) compared to 7 mm previously. They can be followed. MUSCULOSKELETAL: Minimal interval increase in size in the metastatic lesion involving the sacrum with peripheral enhancing component currently measuring 9.0 x 5.8 cm (series 3 image 290) compared to 8.6 x 5.5 cm previously when measured at the same location. Postsurgical changes with metallic hardware in the lower lumbar spine causing artifacts. There is a neural stimulator. Procedure Note Kenzie Hearn MD - 09/21/2024 FULL RESULT: Examination: CT CHEST ABDOMEN PELVIS W CONTRAST on 09/20/2024 6:08 PM. Clinical History: Secondary malignant neoplasm of liver 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 Secondary malignant neoplasm of right lung. Indication: Therapeutic response assessment. Comparison: 06/28/2024. Technique: CT CHEST ABDOMEN PELVIS W CONTRAST. Findings: CHEST: Lungs and Pleura: Interval resolution the previously seen mass in theleft lower lobe. No significant change in the 6 mm nodule in the rightupper lobe (series 4 image 41). Nodularity at the left lung base isslightly more prominent currently measuring 5 mm (series 4 image 107)compared to 3 mm previously and can be followed. Few sub-5 mm pulmonarynodules again seen. For example, as seen on series 4 images 71, 73, 76,80, 99. They can continue to be followed. No pleural effusion. Cardiomediastinum: The heart is normal in size. No pericardial effusion. Lymph nodes: No lymphadenopathy. ABDOMEN AND PELVIS: Hepatobiliary: Slightly limited evaluation due to presence of artifactsfrom respiratory motion. No suspicious hepatic lesion. No biliarydilatation. No cholecystitis. Spleen: Minimally prominent spleen. Pancreas: Stable 9 mm hypervascular lesion in the head of the pancreas(series 3 image 209). Adrenal Glands: No mass in the right adrenal gland. Kidneys, Ureters, Bladder: Patient is status post left nephrectomy. Againseen cysts in the right kidney. There is a small interval increase in sizein one of the hypodensities/cyst currently measuring 1.6 cm (image 228)compared to 1.4 cm previously and this can be followed. No hydronephrosisof the right kidney. Diffuse mild wall thickening of the urinarybladder. Gastrointestinal Tract: No obstruction. Peritoneum/Retroperitoneum: No ascites. Lymph Nodes: Interval increase in size in the retroperitoneal lymph nodes.For example, interaortocaval lymph node currently measuring 1.0 cm (series3 image 239) compared to 8 mm previously. Additional interaortocaval lymphnode is also slightly more prominent currently measuring 8 mm (image 222)compared to 7 mm previously. They can be followed. MUSCULOSKELETAL: Minimal interval increase in size in the metastatic lesion involving thesacrum with peripheral enhancing component currently measuring 9.0 x 5.8cm (series 3 image 290) compared to 8.6 x 5.5 cm previously when measuredat the same location. Postsurgical changes with metallic hardware in the lower lumbar spinecausing artifacts. There is a neural stimulator. IMPRESSION: 1. Interval resolution the previously seen largest metastasis in the leftlower lobe. 2. Small interval increase in size in the pulmonary nodule in the leftlung base and other scattered subcentimeter pulmonary nodules can continueto be followed. 3. Minimal interval increase in size in the metastatic lesion involvingthe sacrum. 4. Small interval increase in size in the retroperitoneal lymph nodes thatcan be reevaluated on the next follow-up study. ACTIONABLE ITEMS/RECOMMENDATIONS*: None. *An Actionable Finding is a finding that may be unrelated to the originalreason for imaging but potentially actionable, meaning furtherinvestigation may be necessary. The Actionable Findings Vigilance Unit(AFVU) assists medical providers with responding to additional radiologicfindings that are unexpected and potentially actionable. Fco Manuel MD IM CT ORDERABLES Final Result * (ABNORMAL) POC Creatinine (09/20/2024 5:09 PM TUNNEL ELASTIC OPERATOR CHAINSTITCH) POC Creatinine 1.4(H) 0.6 - 1.3 mg/dL 09/20/2024 5:11 PM TUNNEL ELASTIC OPERATOR CHAINSTITCH [facility] [place] Comment:Medications, especia lly hydroxyurea or supplements, such as ascorbate, can interfere with test results causing a falsely and significantly higher result than expected. If a problem is suspected with a patient's result, a sample should be sent to the laboratory for confirmatory testing. POC eGFR 61 >=60 mL/min/1.7 3 sq. m 09/20/2024 5:11 PM TUNNEL ELASTIC OPERATOR CHAINSTITCH [facility] Comment: The eGFRcr is calculated with the 2020 CKD-EPI creatinine equation using creatinine, patient's age, and sex for adults 18 years of age and older. Other factors, especially muscle mass, may affect accuracy and need to be considered. According to the Kidney Disease: Improving Global Outcomes (KDIGO) CKD Work Group 2012 Clinical Practice Guideline, chronic kidney disease (CKD) is defined as the abnormalities of kidney structure or function, present for more than 3 months, with implications for health. CKD should be classified by cause, GFR category, and albuminuria category. KDIGO guidelines provide the following GFR categories. Stage / Description / GFR mL/min/1.73 m2: G1* / Normal or high / >= 90 G2* / Mildly decreased / 60-89 G3a / Mildly to moderately decreased / 45-59 G3b / Moderately to severely decreased / 30-44 G4 / Severely decreased / 15-29 G5 / Kidney failure / <15 *In the absence of evidence of kidney damage, neither G1 nor G2 fulfill criteria for CKD. Blood 09/20/2024 5:09 PM TUNNEL ELASTIC OPERATOR CHAINSTITCH 09/20/2024 5:11 PM TUNNEL ELASTIC OPERATOR CHAINSTITCH Narrative [facility] - 09/20/2024 5:11 PM TUNNEL ELASTIC OPERATOR CHAINSTITCH Method description: The i-STAT is an analyzer used for in vitro quantification of various analytes in whole blood. The device uses a single disposable cartridge which contains microfabricated sensors, a calibration solution, fluidics system, and a waste chamber. Each test cartridge contains chemically sensitive biosensors on a silicon chip that are configured to perform specific tests. The microfabricated sensors measure analyte concentration by an electrochemical assay. us Fco Manuel MD POCT ORDERABLES - DEVICE Final R esult [facility] Unless otherwise noted, all lab tests performed by: Division of Pathology and Laboratory Medicine [address] [place] [id number] * MRI Pelvis with and without Contrast - Musculoskeletal (08/20/2024 10:19 AM TUNNEL ELASTIC OPERATOR CHAINSTITCH) Anatomical Region Laterality Modality Pelvis Magnetic Resonan ce 08/20/2024 3:52 PM TUNNEL ELASTIC OPERATOR CHAINSTITCH Impressions 08/20/2024 4:05 PM TUNNEL ELASTIC OPERATOR CHAINSTITCH Metastatic mass in the sacrum shows progression with increased volume and spread. ACTIONABLE ITEMS/RECOMMENDATIONS*: None. *An Actionable Finding is a finding that may be unrelated to the original reason for imaging but potentially actionable, meaning further investigation may be necessary. The Actionable Findings Vigilance Unit (AFVU) assists medical providers with responding to additional radiologic findings that are unexpected and potentially actionable. Narrative 08/20/2024 4:05 PM TUNNEL ELASTIC OPERATOR CHAINSTITCH FULL RESULT: Examination: MRI PELVIS W WO CONTRAST - MUSCULOSKELETAL, 08/20/2024 10:19 AM. Clinical History: 49-year-old man with renal cell carcinoma with L5 and sacrum metastasis status post laminectomy and decompression on 01/30/17 complicated by infected seroma. Status post radiation to L5-S2 on 03/07/2023 and L5-S4 on 12/06/2023. Indication: worsening weakness of lower extremities Comparison: Magnetic resonance imaging of the pelvis 11/29/2023 and of the lumbar spine 06/01/2024 Technique: Multiplanar, multisequence magnetic resonance imaging of the pelvis was performed without and with intravenous administration of contrast. Findings: The metastatic mass in the sacrum shows progression with increased volume and spread from left to right: T1 (series 5 image 23) of 08/20/2024 when compared to 11/29/2023 (series 5 image 15) and 06/01/2024 (series 11 image 15). Also compare coronal T2 series 3 image 12 of 11/29/2023 with series 2 image 31 and 08/20/2024. Procedure Note Edgard Tanner Jr., MD - 08/20/2024 FULL RESULT: Examination: MRI PELVIS W WO CONTRAST - MUSCULOSKELETAL, 08/20/2024 10:19AM. Clinical History: 49-year-old man with renal cell carcinoma with L5 andsacrum metastasis status post laminectomy and decompression on 01/30/17complicated by infected seroma. Status post radiation to L5-S2 on03/07/2023 and L5-S4 on 12/06/2023. Indication: worsening weakness of lower extremities Comparison: Magnetic resonance imaging of the pelvis 11/29/2023 and of thelumbar spine 06/01/2024 Technique: Multiplanar, multisequence magnetic resonance imaging of thepelvis was performed without and with intravenous administration ofcontrast. Findings: The metastatic mass in the sacrum shows progression with increased volumeand spread from left to right: T1 (series 5 image 23) of 08/20/2024 whencompared to 11/29/2023 (series 5 image 15) and 06/01/2024 (series 11 image15). Also compare coronal T2 series 3 image 12 of 11/29/2023 with series 2image 31 and 08/20/2024. IMPRESSION: Metastatic mass in the sacrum shows progression with increased volume andspread. ACTIONABLE ITEMS/RECOMMENDATIONS*: None. *An Actionable Finding is a finding that may be unrelated to the originalreason for imaging but potentially actionable, meaning furtherinvestigation may be necessary. The Actionable Findings Vigilance Unit(AFVU) assists medical providers with responding to additional radiologicfindings that are unexpected and potentially actionable. Renea Bolanos APRN IM MRI ORDERABLES Final Result * PUMP - REFILL, REPROGRAMMING (07/24/2024 8:11 AM TUNNEL ELASTIC OPERATOR CHAINSTITCH) Narrative Tree Austin APRN - 07/24/2024 8:11 AM TUNNEL ELASTIC OPERATOR CHAINSTITCH Tree Austin APRN 07/24/2024 1:13 PM Pump - refill, reprogramming Site: abdomen Laterality (if applicable): left Date/Time: 07/24/2024 8:11 AM Provider Information: Performed by: Tree Austin APRN Authorized by: Tree Austin APRN [employer] Worker present?: no Patient Diagnosis: Pre-operative diagnosis: Chronic pain syndrome Post-operative diagnosis: unchanged Indication: Indications for procedure: to provide definitive treatment Anesthesia: Local anesthesia used?: Yes Local anesthetic: lidocaine 1% without epinephrine Anesthetic total (ml): 1 Procedure Details: PAIN MEDICINE CLINIC PROCEDURE NOTE Patient: Raf Pearson Age: 49 y.o. Attending: Date of Visit:July 24, 2024 Procedure performed by- Tree Austin APN PROCEDURE(S) PERFORMED: 1. Intrathecal Pump Refill and Complex Programming. SUPPLIES: Portable [employer] Bakeshop Cleaner, Refill kit Painpump expiration jul 2030 INDICATION FOR THE PROCEDURE: Raf Pearson is a 49 y.o.-year-old male with a history of metastatic RCC who presents for evaluation of chronic back pain, iliac/pelvic/sacral pain secondary to metastasis. He received a L LOLLY on 07/26/23, and an ITP implant 11/05/23. The patient stated that they were in their usual state of health or recent infections. Therefore, the plan is for a refill and reprogramming of their intrathecal pump.The indications, risks, benefits, and alternatives were explained to the pt. Pt agreed and informed consent obtained INTERIM HISTORY: Patient reported his pain is controlled with pump medication but at times he feels he need more pain control and bolus are not getting enough control. Dr. May adjusted pump with increase of dose. Pump filled with 20 ml volume INTERIM HISTORY: Pain severity in the last week: (0-10, 0 being none, 10 being worst) Worst Pain: 1 Least Pain: 1 Average Pain: 1 Current Pain: 1 Personal Pain Goal: 1 : Pain Medications gabapentin (NEURONTIN) 600 mg tablet TAKE TWO (2) TABLETS BY MOUTH THREE TIMES A DAY. HYDROmorphone PF 10 mg/mL, BUPivacaine PF 10 mg/mL in sodium chloride 0.9% (PF) 20 mL intrathecal pump by intrathecal route continuous. Last follow up visit - PTM use - as scheduled Naloxone available -- yes PROCEDURE IN DETAIL: A time out was performed Tree Austin APN per [facility] protocol to verify patient name, date of , intrathecal pump site, medication, concentration,route and interval since last refill. The pump was interrogated via telemetry (portable cobol programmer) to assess pump status, current settings, and expected reservoir volume. Current settings recorded for reference. The injection site was prepared on left lower abdomen, cleaned with povidone-iodine and a fenestrated drape was placed to cover pump site. The pump reservoir port was located using the sterile template provided in the refill kit for the above pump model. Using the included sterile supplies a 22g Trotter needle, syringe, and a clamped syringe tubing the pump was accessed successfully. The tubing was then unclamped and the old solution was aspirated. The aspirated amount 7.7 ml was compared with the expected reservoir volume 7.7 ml. The tubing was clamped, using sterile technique the medications and concentrations were verified and drawn up in a sterile syringe, a 0.2 micron filter was attached to the new syringe containing the dilaudid and bupivacaine, primed the filter then attached to the tubing while ensuring needle placement was secured. The tubing was unclamped and negative pressure was observed. The new solution was injected at a rate no greater than 1ml every 3 seconds and at the half way point 5ml of clear fluid was aspirated and then re-instilled to ensure the needle remained in the reservoir port. Total volume filled 20 ml, needle was removed and the site covered with a sterile bandage. The patient tolerated the procedure well. The pump was reprogrammed via telemetry (portable [employer] cobol programmer) to reflect refill and setting changes. CURRENT PUMP SETTINGS: Next tentative refill date 10/06/24 Next alarm date - 10/11/24 Procedure order placed, updated IT pump tracker. Wasted aspirated amount by RN Aditya Disposition: Monitored patient in room after the procedure for about 30 minutes, no complications observed, discharged in stable condition. The attending, Dr. May , was present for the entirety of the procedure, and formulated the above assessment and plan. Tree AustinMSN,FORM BUILDER,HOTEL GENERAL MANAGER-BC [facility] Specimen(s) Removed: Specimen(s) removed: no specimen collected Estimated Blood Loss: Estimated blood loss: none Complications: Complications: none Patient Disposition: Patient disposition: discharge to home us Tree Austin APRN PROCEDURE/MINOR SURGICAL ORDE RABLES Final Result * (ABNORMAL) .CBC (07/14/2024 9:05 AM TUNNEL ELASTIC OPERATOR CHAINSTITCH) Only the most recent of17 resultswithin the time period is included. White Blood Cell 5.6 4.1 - 10.5 K/uL 07/14/2024 9:22 AM [facility] [place] Red Blood Cell 3.40(L) 4.30 - 6.04 M/uL 07/14/2024 9:22 AM [facility] [place] Hemoglobin 10.5(L) 13.3 - 17.4 g/dL 07/14/2024 9:22 AM [facility] [place] Hematocrit 32.0(L) 39.5 - 51.8 % 07/14/2024 9:22 AM [facility] [facility] [place] Mean Cell Volume 94 82 - 99 fL 07/14/2024 9:22 AM [facility] [place] Mean Cell Hemoglobin 30.9 26.6 - 33.2 pg 07/14/2024 9:22 AM [facility] [place] Mean Cell Hemoglobin Concentration 32.8 31.1 - 35.2 g/dL 07/14/2024 9:22 AM [facility] [place] RDW-SD 47.1 37.5 - 49.7 fL 07/14/2024 9:22 AM [facility] [place] Red Cell Diameter Width 13.8 11.6 - 15.5 % 07/14/2024 9:22 AM [facility] [place] Platelet 221 160 - 397 K/uL 07/14/2024 9:22 AM [facility] [place] Mean Platelet Volume 8.6(L) 9.1 - 12.6 fL 07/14/2024 9:22 AM [facility] [place] INRBC 0.0 0.0 - 0.1 /100 WBC 07/14/2024 9:22 AM [facility] [place] Comment: The INRBC (instrument NRBC) value reflects the enumeration of nucleated red blood cells contained in a 200uL sample of whole blood analyzed by the instrument. This value may differ from the NRBC value reported in a manual differential, which is based on a 100 cell differential. Neutrophil % 75.5(H) 43.2 - 72.7 % 07/14/2024 9:22 AM [facility] [place] Lymphocyte % 13.0(L) 16.8 - 46.2 % 07/14/2024 9:22 AM [facility] [place] Monocyte % 8.9 5.1 - 12.5 % 07/14/2024 9:22 AM [facility] [place] Eosinophil % 1.4 0.4 - 6.3 % 07/14/2024 9:22 AM [facility] [place] Basophil % 0.7 0.2 - 1.4 % 07/14/2024 9:22 AM [facility] [place] IGRE % 0.5 0.1 - 1.5 % 07/14/2024 9:22 AM [facility] [place] Comment:The IGRE% includes M etamyelocytes, Myelocytes and Promyelocytes. Neutrophil Abs 4.22 1.95 - 7.25 K/uL 07/14/2024 9:22 AM [facility] [place] Lymphocyte Abs 0.73(L) 1.01 - 3.24 K/uL 07/14/2024 9:22 AM [facility] [place] Monocyte Abs 0.50 0.24 - 0.85 K/uL 07/14/2024 9:22 AM [facility] [place] Eosinophil Abs 0.08 0.02 - 0.50 K/uL 07/14/2024 9:22 AM [facility] [place] Basophil Abs 0.04 0.02 - 0.09 K/uL 07/14/2024 9:22 AM [facility] [place] IG Abs 0.03 0.01 - 0.12 K/uL 07/14/2024 9:22 AM [facility] [place] Blood Peripheral blood specimen / Unknown Venipuncture / Unknown 07/14/2024 9:05 AM TUNNEL ELASTIC OPERATOR CHAINSTITCH 07/14/2024 9:09 AM [facility] Renea Bolanos FORM BUILDER LAB BLOOD ORDERABLES Flaquita bernardo Result [facility] Unless otherwise noted, all lab tests performed by: Division of Pathology and Laboratory Medicine [address] [place] [id number] * (ABNORMAL) Comprehensive Metabolic Panel (07/14/2024 9:05 AM [facility]) Only the most recent of13 resultswithin the time period is included. Bilirubin Total <0.3 0.0 - 1.2 mg/dL 07/14/2024 10:13 AM [facility] [place] Comment:Indocyanine Green (I CG) may cause falsely elevated bilirubin results. Total and direct bilirubin must not be measured from samples containing indocyanine green. False elevation of total bilirubin can be seen in patients with IgG concentrations above 28 g/L. eGFR 66 >=60 mL/min/1. 73 sq. m 07/14/2024 10:13 AM [facility] [place] Comment: The eGFRcr is calculated with the 2020 CKD-EPI creatinine equation using creatinine, patient's age, and sex for adults 18 years of age and older. Other factors, especially muscle mass, may affect accuracy and need to be considered. According to the Kidney Disease: Improving Global Outcomes (KDIGO) CKD Work Group 2012 Clinical Practice Guideline, chronic kidney disease (CKD) is defined as the abnormalities of kidney structure or function, present for more than 3 months, with implications for health. CKD should be classified by cause, GFR category, and albuminuria category. KDIGO guidelines provide the following GFR categories. Stage / Description / GFR mL/min/1.73 m2: G1* / Normal or high / >= 90 G2* / Mildly decreased / 60-89 G3a / Mildly to moderately decreased / 45-59 G3b / Moderately to severely decreased / 30-44 G4 / Severely decreased / 15-29 G5 / Kidney failure / <15 *In the absence of evidence of kidney damage, neither G1 nor G2 fulfill criteria for CKD. Tot Protein 7.6 6.4 - 8.3 gm/dL 07/14/2024 10:13 AM [facility] [place] Calcium Level Total 10.4(H) 8.2 - 10.2 mg/dL 07/14/2024 10:13 AM [facility] [place] Alkaline Phosphatase 104 40 - 129 U/L 07/14/2024 10:13 AM [facility] [place] Albumin Level 3.7 3.5 - 5.2 gm/dL 07/14/2024 10:13 AM [facility] [place] AST 33 <=40 U/L 07/14/2024 10:13 AM [facility] [place] ALT 24 <=41 U/L 07/14/2024 10:13 AM [facility] [place] Sodium Level 143 136 - 145 mmol/L 07/14/2024 10:13 AM [facility] [place] Potassium Level 4.0 3.4 - 4.5 mmol/L 07/14/2024 10:13 AM [facility] [place] Chloride 105 98 - 107 mmol/L 07/14/2024 10:13 AM [facility] [place] CO2 32(H) 22 - 29 mmol/L 07/14/2024 10:13 AM [facility] [place] Anion Gap 6 4 - 14 mmol/L 07/14/2024 10:13 AM [facility] [place] Creatinine 1.31(H) 0.67 - 1.17 mg/dL 07/14/2024 10:13 AM [facility] [place] BUN 18 6 - 23 mg/dL 07/14/2024 10:13 AM [facility] [place] Glucose Level 96 70 - 99 mg/dL 07/14/2024 10:13 AM [facility] [place] Comment: Effective 02/29/16, the glucose reference intervals have been updated based on [place] [employer] guidelines (Standards of Medical Care in Diabetes 2016. Diabetes Care 2016; 39: S13-S22). Fasting blood glucose: Normal: 70-99 mg/dL Impaired fasting glucose (increased risk for diabetes or pre-diabetes): 100-125 mg/dL Diabetes mellitus: >/=126 mg/dL Random blood glucose: Normal: 70-199 mg/dL Note: Random glucose >100 mg/dL is associated with increased risk for diabetes. Blood Peripheral blood specimen / Unknown Venipuncture / Unknown 07/14/2024 9:05 AM TUNNEL ELASTIC OPERATOR CHAINSTITCH 07/14/2024 9:08 AM T[employer]NEL ELASTIC OPERATOR CH[employer]STITCH Renea Bolanos FORM BUILDER LAB BLOOD ORDERABLES Flaquita bernardo Result [facility] Unless otherwise noted, all lab tests performed by: Division of Pathology and Laboratory Medicine [address] [place] [address] [id number] * TSH (07/14/2024 9:05 AM [facility]) Only the most recent of11 resultswithin the time period is included. Thyroid Stimulating Hormone 2.55 0.27 - 4.20 mcunit/mL 07/14/2024 10:13 AM [facility] [place] Blood Peripheral blood specimen / Unknown Venipuncture / Unknown 07/14/2024 9:05 AM TUNNEL ELASTIC OPERATOR CHAINSTITCH 07/14/2024 9:08 AM TUNNEL ELASTIC OPERATOR CHAINSTITCH Kayode Duke FORM BUILDER LAB BLOOD ORDERABLES Final Resul t Performing Organization Address City/[facility]/ZIP Co de Phone Number [facility] Unless otherwise noted, all lab tests performed by: Division of Pathology and Laboratory Medicine [address] [place] [phone] * Free T4 (07/14/2024 9:05 AM T[employer]NEL ELASTIC OPERATOR CH[employer]STITCH) Only the most recent of11 resultswithin the time period is included. T4 (Thyroxine) Free 1.42 0.92 - 1.68 ng/dL 07/14/2024 10:13 AM TUNNEL ELASTIC OPERATOR CHAINSTITCH [facility] Blood Peripheral blood specimen / Unknown Venipuncture / Unknown 07/14/2024 9:05 AM TUNNEL ELASTIC OPERATOR CHAINSTITCH 07/14/2024 9:08 AM TUNNEL ELASTIC OPERATOR CHAINSTITCH Kayode Duke FORM BUILDER LAB BLOOD ORDERABLES Final Resul t Performing Organization Address [facility] Co de Phone Number [facility] Unless otherwise noted, all lab tests performed by: Division of Pathology and Laboratory Medicine [address] [place] [address] * Lipase Level (07/14/2024 9:05 AM TUNNEL ELASTIC OPERATOR CHAINSTITCH) Only the most recent of11 resultswithin the time period is included. Lipase Level 33 13 - 60 U/L 07/14/2024 10:13 AM TUNNEL ELASTIC OPERATOR CHAINSTITCH [facility] Blood Peripheral blood specimen / Unknown Venipuncture / Unknown 07/14/2024 9:05 AM TUNNEL ELASTIC OPERATOR CHAINSTITCH 07/14/2024 9:08 AM TUNNEL ELASTIC OPERATOR CHAINSTITCH Narrative [facility] - 07/14/2024 10:13 AM TUNNEL ELASTIC OPERATOR CHAINSTITCH Reference range established based on adult population Renea Bolanos FORM BUILDER LAB BLOOD ORDERABLES Flaquita l Result Performing Organization Address City/[facility] Co de Phone Number [facility] Unless otherwise noted, all lab tests performed by: Division of Pathology and Laboratory Medicine [address] [place] [phone] * Iron Level (07/14/2024 9:05 AM TUNNEL ELASTIC OPERATOR CHAINSTITCH) Only the most recent of3 resultswithin the time period is included. Iron Level 150 59 - 158 mcg/dL 07/14/2024 9:53 AM TUNNEL ELASTIC OPERATOR CHAINSTITCH [facility] Is patient fasting? Yes 07/14/2024 9:53 AM TUNNEL ELASTIC OPERATOR CHAINSTITCH [facility] Blood Peripheral blood specimen / Unknown Venipuncture / Unknown 07/14/2024 9:05 AM TUNNEL ELASTIC OPERATOR CHAINSTITCH 07/14/2024 9:09 AM TUNNEL ELASTIC OPERATOR CHAINSTITCH [place] Radha Victorialogan FORM BUILDER LAB BLOOD ORDERABLES Flaquita l Result [facility] Unless otherwise noted, all lab tests performed by: Division of Pathology and Laboratory Medicine [address] [place] [address] Unless otherwise noted, all lab tests performed by: Division of Pathology and Laboratory Medicine [address] [place] [address] * Hemoglobin A1c (07/14/2024 9:05 AM [facility]) Pathologist [facility] Hemoglobin A1c 5.5 4.3 - 5.6 % 07/14/2024 9:42 AM [facility] Blood Peripheral blood specimen / Unknown Venipuncture / Unknown 07/14/2024 9:05 AM TUNNEL ELASTIC OPERATOR CHAINSTITCH 07/14/2024 9:09 AM TUNNEL ELASTIC OPERATOR CHAINSTITCH Narrative [facility] - 07/14/2024 9:42 AM [facility] HbA1c values >=6.5% are diagnostic of diabetes mellitus. Diagnosis should be confirmed by repeat testing. Therapeutic Action suggested: >8.0% HbA1c; Goal of therapy: <7.0% HbA1c Kayode Duke FORM BUILDER LAB BLOOD ORDERABLES Final Resul t [facility] Unless otherwise noted, all lab tests performed by: Division of Pathology and Laboratory Medicine [address] [place] [id number] * Amylase Level (07/14/2024 9:05 AM [facility]) Only the most recent of11 resultswithin the time period is included. Pathologist [facility] Amylase Level 48 28 - 100 U/L 07/14/2024 10:13 AM [facility] Blood Peripheral blood specimen / Unknown Venipuncture / Unknown 07/14/2024 9:05 AM TUNNEL ELASTIC OPERATOR CHAINSTITCH 07/14/2024 9:08 AM [facility] Renea Bolanos APRN LAB BLOOD ORDERABLES Flaquita bernardo Result [facility] Unless otherwise noted, all lab tests performed by: Division of Pathology and Laboratory Medicine [address] [place] [phone] * (ABNORMAL) Lipid Panel (07/14/2024 9:05 AM [facility]) Cholesterol Total 92 <200 mg/dL 07/14/2024 10:13 AM [facility] [place] Comment: ATP III Classification of Total Cholesterol - Primary Target of Therapy (in mg/dL): <200 Desirable 200-239 Borderline high >=240 High Triglyceride 102 <150 mg/dL 07/14/2024 10:13 AM [facility] [place] Comment: ATP III Classification of Serum Triglycerides Primary Target of Therapy (in mg/dL): <150 Normal 150-199 Borderline high 200-499 High >=500 Very high Non-fasting triglycerides >200 mg/dL may be followed up with a fasting Lipid Panel. Calculated LDL-C may be falsely decreased when non-fasting triglycerides >200 mg/dL. HDL Cholesterol 36(L) >=40 mg/dL 07/14/2024 10:13 AM [facility] LDL Cholesterol 36 <=100 mg/dL 07/14/2024 10:13 AM [facility] [place] Comment: ATP III Classification of LDL Cholesterol Primary Target of Therapy (in mg/dL): <100 Optimal 100-129 Near optimal/above optimal 130-159 Borderline high 160-189 High >=190 Very high Very Low Density Lipoprotein 20 mg/dL 07/14/2024 10:13 AM [facility] [place] Is patient fasting? Yes 07/14 10:13 AM [facility] [place] Blood Peripheral blood specimen / Unknown Venipuncture / Unknown 07/14/2024 9:05 AM TUNNEL ELASTIC OPERATOR CHAINSTITCH 07/14/2024 9:08 AM TUNNEL ELASTIC OPERATOR CHAINSTITCH Kayode Grantjulian LYONS LAB BLOOD ORDERABLES Final Resul t Performing Organization Address City/[facility]/ZIP Co de Phone Number [facility] Unless otherwise noted, all lab tests performed by: Division of Pathology and Laboratory Medicine [address] [place] [phone] * (ABNORMAL) Transferrin with TIBC (06/17/2024 9:55 AM TUNNEL ELASTIC OPERATOR CHAINSTITCH) Transferrin 188(L) 200 - 360 mg/dL 06/17/2024 3:56 PM TUNNEL ELASTIC OPERATOR CHAINSTITCH [facility] Total Iron Binding Capacity 263 250 - 450 mcg/dL 06/17/2024 3:56 PM TUNNEL ELASTIC OPERATOR CHAINSTITCH [facility] Blood Peripheral blood specimen / Unknown Venipuncture / Unknown 06/17/2024 9:55 AM TUNNEL ELASTIC OPERATOR CHAINSTITCH 06/17/2024 9:59 AM TUNNEL ELASTIC OPERATOR CHAINSTITCH Fco Manuel MD LAB BLOOD ORDERABLES Final Resul t Performing Organization Address [facility] Co de Phone Number [facility] Unless otherwise noted, all lab tests performed by: Division of Pathology and Laboratory Medicine [address] [place] [address] [phone] * (ABNORMAL) POC Glucose Screen - Fingerstick (06/01/2024 9:40 AM CDT) Only the most recent of6 resultswithin the time period is included. Glucose Screen 112(H) 70 - 99 mg/dL 06/01/2024 9:43 AM CDT [facility] POC Sample Type Capillary 06/01/2024 9:43 AM CDT [facility] Blood 06/01/2024 9:40 AM CDT 06/01/2024 9:43 AM CDT Narrative [facility] - 06/01/2024 9:43 AM CDT Capillary blood samples, e.g. obtained by fingerstick, may have inaccurate results in patients with decreased peripheral blood flow. Method description: All results are measured using Electrochemistry test methodology. The glucose in the sample mixes with the reagents on the test strip. The reaction produces an electric current. The amount of current produced is proportional to the glucose concentration in the blood. All POC Glucose screen test results, including critical values, must be interpreted and evaluated in the context of the patients' clinical findings. It is recommended to confirm any questionable test results by core lab methodology. Yahir Keith MD POCT ORDERABLES - DEVIC E Final Result [facility] Unless otherwise noted, all lab tests performed by: Division of Pathology and Laboratory Medicine [address] [place] [phone] * MRI Lumbar Spine with and without Contrast (06/01/2024 9:37 AM CDT) Anatomical Region Laterality Modality L-spine, Spine Magnetic Resonan ce 06/01/2024 10:0 2 AM CDT Impressions 06/01/2024 11:32 AM CDT 1. No progression of sacral metastatic disease. 2. Previously treated tumor is stable in size and is now nonenhancing suggestive of treatment response. ACTIONABLE ITEMS/RECOMMENDATIONS*: None. *An Actionable Finding is a finding that may be unrelated to the original reason for imaging but potentially actionable, meaning further investigation may be necessary. The Actionable Findings Vigilance Unit (AFVU) assists medical providers with responding to additional radiologic findings that are unexpected and potentially actionable. I personally reviewed these image(s) along with the resident's/fellow's interpretations, certify that if a procedure was performed I was physically present, and agree with the final report. Narrative 06/01/2024 11:32 AM CDT FULL RESULT: Examination: MRI LUMBAR SPINE W WO CONTRAST on 06/01/2024 9:37 AM. 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 Status post radiation to L5-S2 on 03/07/2023 and L5-S4 on 12/06/2023. INDICATION: Low back pain, Low back pain, less than 6 weeks, Lower extremity weakness, renal cell carcinoma with L5 and sacral mets, please eval for progression COMPARISON: Lumbar spine MRI 11/28/2023. TECHNIQUE: MRI of the lumbar spine without and with IV contrast was performed. FINDINGS: LUMBAR SPINE: Bone: Postsurgical changes of the bilateral L5 laminectomy and facetectomy. Posterior spinal fusion hardware from L3 to S2. Stable severe compression fracture of L5 with mild unchanged retropulsion. Compared to 11/28/2023, there is nonenhancement of the treated enhancing tumor in the midline/right sacrum which was new on 11/28/2023 (series 11, image 12 versus series 25, image 34 on 11/28/2023 study). No new areas of enhancement. No spinal canal stenosis. Spinal canal: The conus medullaris terminates normally at L1-L2 and the distribution of the cauda equina nerve roots is normal. No nodular or masslike enhancement is seen within the thecal sac. Other: Hemorrhagic/proteinaceous bilobed right renal cyst in the right interpolar/inferior pole. Otherwise limited imaging of the abdomen and pelvis is unremarkable. Procedure Note Emeka Jean MD - 06/01/2024 FULL RESULT: Examination: MRI LUMBAR SPINE W WO CONTRAST on 06/01/2024 9:37 AM. CLINICAL HISTORY: Renal cell carcinoma with L5 and sacrum metastasisstatus post laminectomy and decompression on 01/30/17 complicated byinfected seroma. Status post radiation to L5-S2 on 03/07/2023 and L5-S4 on12/06/2023. INDICATION: Low back pain, Low back pain, less than 6 weeks, Lowerextremity weakness, renal cell carcinoma with L5 and sacral mets, pleaseeval for progression COMPARISON: Lumbar spine MRI 11/28/2023. TECHNIQUE: MRI of the lumbar spine without and with IV contrast wasperformed. FINDINGS: LUMBAR SPINE: Bone: Postsurgical changes of the bilateral L5 laminectomy and facetectomy.Posterior spinal fusion hardware from L3 to S2. Stable severe compression fracture of L5 with mild unchangedretropulsion. Compared to 11/28/2023, there is nonenhancement of the treated enhancingtumor in the midline/right sacrum which was new on 11/28/2023 (series 11,image 12 versus series 25, image 34 on 11/28/2023 study). No new areas ofenhancement. No spinal canal stenosis. Spinal canal: The conus medullaris terminates normally at L1-L2 and the distribution ofthe cauda equina nerve roots is normal. No nodular or masslike enhancementis seen within the thecal sac. Other: Hemorrhagic/proteinaceous bilobed right renal cyst in the rightinterpolar/inferior pole. Otherwise limited imaging of the abdomen and pelvis is unremarkable. IMPRESSION: 1. No progression of sacral metastatic disease. 2. Previously treated tumor is stable in size and is now nonenhancingsuggestive of treatment response. ACTIONABLE ITEMS/RECOMMENDATIONS*: None. *An Actionable Finding is a finding that may be unrelated to the originalreason for imaging but potentially actionable, meaning furtherinvestigation may be necessary. The Actionable Findings Vigilance Unit(AFVU) assists medical providers with responding to additional radiologicfindings that are unexpected and potentially actionable. I personally reviewed these image(s) along with the resident's/fellow'sinterpretations, certify that if a procedure was performed I wasphysically present, and agree with the final report. Sarahy Beth FORM BUILDER IMG MRI ORDERABLES Final Result * (ABNORMAL) POC Chem 8 (05/27/2024 12:55 PM CDT) POC Sodium 141 138 - 146 mmol/L 05/27/2024 12:59 PM CDT [facility] POC Potassium 4.0 3.5 - 4.9 mmol/L 05/27/2024 12:59 PM CDT [facility] POC Chloride 100 98 - 109 mmol/L 05/27/2024 12:59 PM CDT [facility] POC VTCO2 30(H) 24 - 29 mmol/L 05/27/2024 12:59 PM CDT [facility] POC Anion Gap 15 10 - 20 mmol/L 05/27/2024 12:59 PM CDT [facility] POC BUN 19 8 - 26 mg/dL 05/27/2024 12:59 PM CDT [facility] POC Creatinine 1.3 0.6 - 1.3 mg/dL 05/27/2024 12:59 PM CDT [facility] Comment:Medications, especia lly hydroxyurea or supplements, such as ascorbate, can interfere with test results causing a falsely and significantly higher result than expected. If a problem is suspected with a patient's result, a sample should be sent to the laboratory for confirmatory testing. POC I Glu 101(H) 70 - 99 mg/dL 05/27/2024 12:59 PM CDT [facility] Comment:Medications, especia lly hydroxyurea or supplements, such as ascorbate, can interfere with test results causing a falsely and significantly higher result than expected. If a problem is suspected with a patient's result, a sample should be sent to the laboratory for confirmatory testing. POC Ionized Calcium 1.35(H) 1.12 - 1.32 mmol/L 05/27/2024 12:59 PM CDT [facility] POC Hct 38.0 38.0 - 51.0 % 05/27/2024 12:59 PM CDT [facility] POC Hgb 12.9 12.0 - 17.0 gm/dL 05/27/2024 12:59 PM T [facility] Comment:Hematocrit values fr om the iSTAT are determined conductometrically, which may be affected by WBC count, levels of total protein, lipids, or sodium. The hemoglobin result is calculated based on the corresponding measured hematocrit and assumes a normal MCHC. If there is a discrepancy between the results from iSTAT and conventional laboratory method, the result from conventional method should be considered the accurate standard. POC Sample Type Venous 12:59 PM CDT [facility] POC eGFR 67 >=60 mL/min/1. 73 sq. m 05/27/2024 12:59 PM T [facility] Comment: The eGFRcr is calculated with the 2020 CKD-EPI creatinine equation using creatinine, patient's age, and sex for adults 18 years of age and older. Other factors, especially muscle mass, may affect accuracy and need to be considered. According to the Kidney Disease: Improving Global Outcomes (KDIGO) CKD Work Group 2012 Clinical Practice Guideline, chronic kidney disease (CKD) is defined as the abnormalities of kidney structure or function, present for more than 3 months, with implications for health. CKD should be classified by cause, GFR category, and albuminuria category. KDIGO guidelines provide the following GFR categories. Stage / Description / GFR mL/min/1.73 m2: G1* / Normal or high / >= 90 G2* / Mildly decreased / 60-89 G3a / Mildly to moderately decreased / 45-59 G3b / Moderately to severely decreased / 30-44 G4 / Severely decreased / 15-29 G5 / Kidney failure / <15 *In the absence of evidence of kidney damage, neither G1 nor G2 fulfill criteria for CKD. Blood 05/27/2024 12:5 5 PM CDT 05/27/2024 12:59 PM CDT Narrative [facility] - 05/27/2024 12:59 PM CDT Method description: The i-STAT is an analyzer used for in vitro quantification of various analytes in whole blood. The device uses a single disposable cartridge which contains microfabricated sensors, a calibration solution, fluidics system, and a waste chamber. Each test cartridge contains chemically sensitive biosensors on a silicon chip that are configured to perform specific tests. The microfabricated sensors measure analyte concentration by an electrochemical assay. Matilda Stevenson APRN POCT ORDERABLES - DEVICE Final Result Performing Organization Address City/[facility]/ZIP Co de Phone Number [facility] Unless otherwise noted, all lab tests performed by: Division of Pathology and Laboratory Medicine [address] [place] [address] [phone] * (ABNORMAL) Ferritin Level (05/20/2024 8:41 AM CDT) Ferritin Level 3,386(H) 30 - 400 ng/mL 05/20/2024 4:54 PM CDT [facility] Blood Peripheral blood specimen / Unknown Venipuncture / Unknown 05/20/2024 8:41 AM CDT 05/20/2024 8:42 AM CDT Narrative [facility] - 05/20/2024 4:54 PM CDT Reference range established for age 20 - 60 years Renea Bolanos FORM BUILDER LAB BLOOD ORDERABLES Flaquita l Result [facility] Unless otherwise noted, all lab tests performed by: Division of Pathology and Laboratory Medicine [address] [place] [phone] * PUMP - REFILL, REPROGRAMMING (05/05/2024 9:34 AM CDT) Narrative Tree Austin APRN - 05/05/2024 9:34 AM CDT Tree Austin APRN 05/05/2024 12:56 PM Pump - refill, reprogramming Site: ABDOMEN Laterality (if applicable): left Date/Time: 05/05/2024 9:34 AM Provider Information: Performed by: Tree Austin APRN Authorized by: Tree Austin APRN [employer] Worker present?: no Patient Diagnosis: Pre-operative diagnosis: Cancer pain Post-operative diagnosis: unchanged Indication: Indications for procedure: to provide definitive treatment Anesthesia: Local anesthesia used?: Yes Local anesthetic: lidocaine 1% without epinephrine Anesthetic total (ml): 1 Sedation: Patient sedated?: patient not sedated Procedure Details: PAIN MEDICINE CLINIC PROCEDURE NOTE Patient: Raf Pearson Age: 49 y.o. Attending: Date of Visit:May 05, 2024 Procedure performed by- Tree Austin APN PROCEDURE(S) PERFORMED: 1. Intrathecal Pump Refill and Complex Programming. SUPPLIES: Portable [employer] Athletic Bakeshop Cleaner, Refill kit INDICATION FOR THE PROCEDURE: Raf Pearson is a 49 y.o.-year-old male with a history of metastatic RCC who presents for evaluation of chronic back pain, iliac/pelvic/sacral pain secondary to metastasis. He received a L LOLLY on 07/26/23, and an ITP implant 11/05/23. The patient stated that they were in their usual state of health or recent infections. Therefore, the plan is for a refill and reprogramming of their intrathecal pump.The indications, risks, benefits, and alternatives were explained to the pt. Pt agreed and informed consent obtained INTERIM HISTORY: Patient reported his pain is increased due to PT . He noticed increased pain after starting PT. Patient using 6 bolus per day still reporting is not enough . Patient requesting a increase in pump medication. Will notify Dr. May . Patient reported his pump filled in November. He has 19.2 mls left in the pump. Pump filled with 20 ml volume , Dr. Castle checked and confirmed , Patient has 4 months supply. Pain severity in the last week: (0-10, 0 being none, 10 being worst) Worst Pain: 5 Least Pain: 0 Average Pain: 3 Current Pain: 3 Personal Pain Goal: 0 : Pain Medications acetaminophen (TYLENOL) 500 mg tablet Take 1 tablet (500 mg) by mouth as needed for mild pain (pain score 1-3). dexAMETHasone (DECADRON) 4 mg tablet Take 1 tablet (4 mg) by mouth 4 (four) times a day throughout radiation. Then take 1 tablet (4 mg) three times daily for three days, then take 1 tablet twice daily for three days, then take 1 tablet once daily for three days. gabapentin (NEURONTIN) 600 mg tablet TAKE TWO (2) TABLETS BY MOUTH THREE TIMES A DAY. HYDROmorphone PF 10 mg/mL, BUPivacaine PF 10 mg/mL in sodium chloride 0.9% (PF) 20 mL intrathecal pump by intrathecal route continuous. HYDROmorphone PF 10 mg/mL, BUPivacaine PF 10 mg/mL in sodium chloride 0.9% (PF) 40 mL intrathecal pump by intrathecal route continuous. meloxicam (MOBIC) 7.5 mg tablet TAKE ONE (1) TABLET(S) BY MOUTH TWICE DAILY. PTM use - 6 per day Naloxone available --yes PROCEDURE IN DETAIL: A time out was performed Tree Austin APN per [facility] protocol to verify patient name, date of , intrathecal pump site, medication, concentration,route and interval since last refill. The pump was interrogated via telemetry (portable cobol programmer) to assess pump status, current settings, and expected reservoir volume. Current settings recorded for reference. The injection site was prepared on left lower abdomen, cleaned with povidone-iodine and a fenestrated drape was placed to cover pump site. The pump reservoir port was located using the sterile template provided in the refill kit for the above pump model. Using the included sterile supplies a 22g Trotter needle, syringe, and a clamped syringe tubing the pump was accessed successfully. The tubing was then unclamped and the old solution was aspirated. The aspirated amount 19.2 ml was compared with the expected reservoir volume 19.2 ml. The tubing was clamped, using sterile technique the medications and concentrations were verified and drawn up in a sterile syringe, a 0.2 micron filter was attached to the new syringe containing the dilaudid and bupivacaine, primed the filter then attached to the tubing while ensuring needle placement was secured. The tubing was unclamped and negative pressure was observed. The new solution was injected at a rate no greater than 1ml every 3 seconds and at the half way point 5ml of clear fluid was aspirated and then re-instilled to ensure the needle remained in the reservoir port. Total volume filled 20 ml, needle was removed and the site covered with a sterile bandage. The patient tolerated the procedure well. The pump was reprogrammed via telemetry (portable [employer] cobol programmer) to reflect refill and setting changes. CURRENT PUMP SETTINGS: See attached Next tentative refill date- 08/06/2024 Next alarm date - 08/25/24 Procedure order placed, updated IT pump tracker. Wasted aspirated amount by RN Reekarriu Disposition: Monitored patient in room after the procedure for about 30 minutes, no complications observed, discharged in stable condition. Tree Austin,MSN,FORM BUILDER,HOTEL GENERAL MANAGER-BC [facility] Specimen(s) Removed: Specimen(s) removed: no specimen collected Estimated Blood Loss: Estimated blood loss: none Complications: Complications: none Patient Disposition: Patient disposition: discharge to home Tree Austin APRN PROCEDURE/MINOR SURGICAL ORDE SJ Final Result * CT Chest without Contrast (01/24/2024 1:05 PM CDT) Anatomical Region Laterality Modality Chest Computed Tomogra phy 01/24/2024 7:57 PM CDT Impressions 01/24/2024 8:56 PM CDT Stable small pulmonary nodules. No CT evidence of intrathoracic metastasis or acute cardiopulmonary disease. ACTIONABLE ITEMS/RECOMMENDATIONS*: See impression. *An Actionable Finding is a finding that may be unrelated to the original reason for imaging but potentially actionable, meaning further investigation may be necessary. The Actionable Findings Vigilance Unit (AFVU) assists medical providers with responding to additional radiologic findings that are unexpected and potentially actionable. Narrative 01/24/2024 8:56 PM CDT FULL RESULT: Examination: CT CHEST WO CONTRAST on 01/24/2024 1:05 PM. Clinical History: Multiple nodules of lung Indication: Pulmonary nodule follow-up Comparison: 11/29/2023 Technique: CT of the chest is performed without intravenous contrast. Findings: Lungs/Airways/Pleura: Bilateral scattered small pulmonary nodules are stable. No new pulmonary nodule, mass or consolidation is seen. There are no pleural effusions. Neck/Mediastinum/Nodes/Heart: There is no mediastinal or hilar lymphadenopathy. The heart is normal in size. No pericardial effusion. Upper abdomen: Limited imaging through the upper abdomen shows normal adrenal glands. Post surgical changes from left nephrectomy. Stable mild splenomegaly. Bones/Soft Tissues: No destructive bone lesions. Procedure Note Zara Ng C.B., MD - 01/24/2024 FULL RESULT: Examination: CT CHEST WO CONTRAST on 01/24/2024 1:05 PM. Clinical History: Multiple nodules of lung Indication: Pulmonary nodule follow-up Comparison: 11/29/2023 Technique: CT of the chest is performed without intravenous contrast. Findings: Lungs/Airways/Pleura: Bilateral scattered small pulmonary nodules arestable. No new pulmonary nodule, mass or consolidation is seen. There areno pleural effusions. Neck/Mediastinum/Nodes/Heart: There is no mediastinal or hilarlymphadenopathy. The heart is normal in size. No pericardial effusion. Upper abdomen: Limited imaging through the upper abdomen shows normaladrenal glands. Post surgical changes from left nephrectomy. Stable mildsplenomegaly. Bones/Soft Tissues: No destructive bone lesions. IMPRESSION: Stable small pulmonary nodules. No CT evidence of intrathoracic metastasisor acute cardiopulmonary disease. ACTIONABLE ITEMS/RECOMMENDATIONS*: See impression. *An Actionable Finding is a finding that may be unrelated to the originalreason for imaging but potentially actionable, meaning furtherinvestigation may be necessary. The Actionable Findings Vigilance Unit(AFVU) assists medical providers with responding to additional radiologicfindings that are unexpected and potentially actionable. us Janneth Grijalva FORM BUILDER IMG CT ORDERABLES Final Res ult * (ABNORMAL) Urinalysis with Microscopic (01/02/2024 10:44 AM CDT) Urine Appearance Cloudy(A) Clear 01/02/20 2:15 PM CDT [facility] Comment:This result was prev iously suppressed from the chart. Urine Color Michelle(A) Colorless, Straw, Yellow, Dark Yellow, Straw-Yello w 01/02/2024 2:15 PM CDT [facility] Comment:This result was prev iously suppressed from the chart. Urine Specific [place] 1.027 1.003 - 1.035 01/02/2024 2:15 PM CDT [facility] Comment:This result was prev iously suppressed from the chart. Urine pH 5.0 5.0 - 8.0 01/02/2024 2:15 PM CDT [facility] Comment:This result was prev iously suppressed from the chart. Urine Glucose >=500(A) Negative mg/dL 01/02/2024 2:15 PM CDT [facility] Comment:This result was prev iously suppressed from the chart. Urine Ketones Negative Negative mg/dL 01/02/2024 2:15 PM CDT [facility] Comment:This result was prev iously suppressed from the chart. Urine Blood Moderate(A) Negative 01/02/2024 2:15 PM CDT [facility] Comment:This result was prev iously suppressed from the chart. Urine Protein 100(A) Negative mg/dL 01/02/2024 2:15 PM CDT [facility] Comment:This result was prev iously suppressed from the chart. Urine Bilirubin Negative Negative 2:15 PM CDT [facility] Urine Urobilinogen Positive(A) Negative 01/02/2024 2:15 PM CDT [facility] Urine Nitrite Negative Negative 01/02/2024 2:15 PM CDT [facility] Comment:This result was prev iously suppressed from the chart. Urine Leukocyte Esterase Moderate(A) Negative 01/02/2024 2:15 PM CDT [facility] Comment:This result was prev iously suppressed from the chart. Urine WBC >182(H) <=2 /HPF 01/02/2024 2:15 PM CDT [facility] Urine RBC 51(H) <=2 /HPF 01/02/2024 2:15 PM CDT [facility] Urine Mucous Trace Not Seen, Trace /HPF 01/02/2024 2:15 PM CDT [facility] Comment:This result was prev iously suppressed from the chart. Urine Bacteria 1+(A) Not Seen /HPF 01/02/2024 2:15 PM CDT [facility] Comment:This result was prev iously suppressed from the chart. Urine Squamous Epithelial Cells OCC Not Seen, OCC, Rare /HPF 01/02/2024 2:15 PM CDT [facility] Comment:This result was prev iously suppressed from the chart. UA WBC Clump OCC(A) Not Seen /HPF 01/02/2024 2:15 PM CDT [facility] Comment:This result was prev iously suppressed from the chart. Urine (Urine Crane) Non-blood Collection / Unknown 01/02/2024 10:44 AM CDT 01/02/2024 10:53 AM CDT Narrative [facility] - 01/02/2024 2:15 PM CDT Some reporting parameters within the Urinalysis test have changed due to the implementation of new instrumentation in the Main [place], allowing greater sensitivity of measurement. Urinalysis results reported by the [facility] using existing instrumentation, as well as Urinalysis testing performed manually or by back-up methodology at the main [facility], will remain relatively unchanged. New reporting parameters and units will now be reported for all campuses. us Renea Bolanos FORM BUILDER URINE ORDERABLES Final Re sult Performing Organization Address City/[facility]/ZIP Co de Phone Number [facility] Unless otherwise noted, all lab tests performed by: Division of Pathology and Laboratory Medicine [address] [place] [phone] * (ABNORMAL) Phosphorus Level (11/30/2023 2:48 AM CDT) Only the most recent of5 resultswithin the time period is included. Phosphorus Level 1.9(L) 2.5 - 4.5 mg/dL 11/30/2023 3:40 AM CDT [facility] Blood Peripheral blood specimen / Unknown Venipuncture / Unknown 11/30/2023 2:48 AM CDT 11/30/2023 3:08 AM CDT us Bryanna Can FORM BUILDER LAB BLOOD ORDERABLES Final R esult [facility] Unless otherwise noted, all lab tests performed by: Division of Pathology and Laboratory Medicine [address] [place] [phone] * Magnesium Level (11/30/2023 2:48 AM CDT) Only the most recent of5 resultswithin the time period is included. Magnesium Level 2.1 1.6 - 2.6 mg/dL 11/30/2023 3:40 AM CDT [facility] Blood Peripheral blood specimen / Unknown Venipuncture / Unknown 11/30/2023 2:48 AM CDT 11/30/2023 3:08 AM CDT us Sunny Giles APRN LAB BLOOD ORDERABLES Flaquita bernardo Result [facility] Unless otherwise noted, all lab tests performed by: Division of Pathology and Laboratory Medicine [address] [place] [address] [phone] * MRI Pelvis with and without Contrast (11/29/2023 6:43 PM CDT) Anatomical Region Laterality Modality Pelvis Magnetic Resonan ce 11/29/2023 8:05 PM CDT Impressions 11/29/2023 8:43 PM CDT Progressive disease about the previous treated site in the sacrum, left ilium extending from lower margin of L5 to the lower aspect of S4, dominant on the left involving left ilium and crossing midline into the right sacrum as illustrated above these features are progressive compared to 02/26/2022.. ACTIONABLE ITEMS/RECOMMENDATIONS*: None. *An Actionable Finding is a finding that may be unrelated to the original reason for imaging but potentially actionable, meaning further investigation may be necessary. The Actionable Findings Vigilance Unit (AFVU) assists medical providers with responding to additional radiologic findings that are unexpected and potentially actionable. Narrative 11/29/2023 8:43 PM CDT FULL RESULT: Examination: MRI PELVIS W WO CONTRAST, 11/29/2023 6:43 PM. Clinical History: Clear cell carcinoma of left kidney Indication: X-ray hip done, Cancer complication or comorbidity assessment, L4-S3 mets / planning for additional radiation 10Fx IMRT radiotherapy L5-S1 03/04/2023 Comparison: CT chest abdomen pelvis 11/29/2023, MR spine 11/28/2023, MR spine MR spine 02/10/2023 Technique: Multiplanar, multisequence magnetic resonance imaging of the pelvis was performed without and with intravenous administration of contrast. Findings: 1 knockout as well as increase in postcontrast T1 throughout the sacrum and left ilium about the previously noted intervention sites consistent with progressive metastatic disease comparing current study to 02/26/2022. Current study shows infiltrating disease throughout the left sacrum from the left S1 segment superiorly to the lower region S4 segments on the left and extending through the left SI joint and into the posterior aspect of the left ilium. Tumor crosses midline into the right side S2 to within 1 cm of the right SI joint and extends inferiorly to S4. Tumor involves the neural foramina left S1, bilateral S2, bilateral S3, left S3 and left S4. S2 segment within one centimeter of the right sacroiliac joint. Posteriorly the tumor extends from the lower margin of L5 on the left to the S4 level. Anterior extension into the medial aspect of the left piriformis muscle and presacral soft tissues series 8 images 46-74. These features are appreciated on T1 images series 5 images 9-26, T1 postcontrast series 8 images 25-77 and T2 STIR series 6 images 9-26. Procedure Note Kashmir Becerril MD - 11/29/2023 FULL RESULT: Examination: MRI PELVIS W WO CONTRAST, 11/29/2023 6:43 PM. Clinical History: Clear cell carcinoma of left kidney Indication: X-ray hip done, Cancer complication or comorbidity assessment,L4-S3 mets / planning for additional radiation 10Fx IMRT radiotherapyL5-S1 03/04/2023 Comparison: CT chest abdomen pelvis 11/29/2023, MR spine 11/28/2023, MRspine MR spine 02/10/2023 Technique: Multiplanar, multisequence magnetic resonance imaging of thepelvis was performed without and with intravenous administration ofcontrast. Findings: 1 knockout as well as increase in postcontrast T1 throughout the sacrumand left ilium about the previously noted intervention sites consistentwith progressive metastatic disease comparing current study to02/26/2022. Current study shows infiltrating disease throughout the left sacrum fromthe left S1 segment superiorly to the lower region S4 segments on the leftand extending through the left SI joint and into the posterior aspect ofthe left ilium. Tumor crosses midline into the right side S2 to within 1cm of the right SI joint and extends inferiorly to S4. Tumor involves theneural foramina left S1, bilateral S2, bilateral S3, left S3 and left S4.S2 segment within one centimeter of the right sacroiliac joint.Posteriorly the tumor extends from the lower margin of L5 on the left tothe S4 level. Anterior extension into the medial aspect of the leftpiriformis muscle and presacral soft tissues series 8 images 46-74. Thesefeatures are appreciated on T1 images series 5 images 9-26, [id number] series 8 images 25-77 and T2 STIR series 6 images 9-26. IMPRESSION: Progressive disease about the previous treated site in the sacrum, leftilium extending from lower margin of L5 to the lower aspect of S4,dominant on the left involving left ilium and crossing midline into theright sacrum as illustrated above these features are progressive comparedto 02/26/2022.. ACTIONABLE ITEMS/RECOMMENDATIONS*: None. *An Actionable Finding is a finding that may be unrelated to the originalreason for imaging but potentially actionable, meaning furtherinvestigation may be necessary. The Actionable Findings Vigilance Unit(AFVU) assists medical providers with responding to additional radiologicfindings that are unexpected and potentially actionable. Helena Villalba FORM BUILDER IMG MRI ORDERABLES Final R esult * CT ASSOCIATE BROKER Simulation without Contrast (11/29/2023 2:11 PM CDT) Narrative Systemgenerated, Documentation - 11/29/2023 2:11 PM CDT This procedure requires no interpretation from the radiologist. Rosa Elena Patel FORM BUILDER IMG RO CT SIM ORDERABLES F inal Result * (ABNORMAL) Basic Metabolic Panel- Total Calcium (11/29/2023 4:18 AM CDT) eGFR 72 >=60 mL/min/1. 73 sq. m 11/29/2023 4:58 AM CDT [facility] Comment: The eGFRcr is calculated with the 2020 CKD-EPI creatinine equation using creatinine, patient's age, and sex for adults 18 years of age and older. Other factors, especially muscle mass, may affect accuracy and need to be considered. According to the Kidney Disease: Improving Global Outcomes (KDIGO) CKD Work Group 2012 Clinical Practice Guideline, chronic kidney disease (CKD) is defined as the abnormalities of kidney structure or function, present for more than 3 months, with implications for health. CKD should be classified by cause, GFR category, and albuminuria category. KDIGO guidelines provide the following GFR categories. Stage / Description / GFR mL/min/1.73 m2: G1* / Normal or high / >= 90 G2* / Mildly decreased / 60-89 G3a / Mildly to moderately decreased / 45-59 G3b / Moderately to severely decreased / 30-44 G4 / Severely decreased / 15-29 G5 / Kidney failure / <15 *In the absence of evidence of kidney damage, neither G1 nor G2 fulfill criteria for CKD. Calcium Level Total 10.4(H) 8.2 - 10.2 mg/dL 11/29/2023 4:58 AM T [facility] Sodium Level 137 136 - 145 mmol/L 11/29/2023 4:58 AM T [facility] Potassium Level 4.6(H) 3.4 - 4.5 mmol/L 11/29/2023 4:58 AM T [facility] Chloride 101 98 - 107 mmol/L 11/29/2023 4:58 AM T [facility] CO2 26 22 - 29 mmol/L 11/29/2023 4:58 AM T [facility] Anion Gap 10 4 - 14 mmol/L 11/29/2023 4:58 AM T [facility] Creatinine 1.22(H) 0.67 - 1.17 mg/dL 11/29/2023 4:58 AM T [facility] BUN 27(H) 6 - 23 mg/dL 11/29/2023 4:[address] [facility] Glucose Level 169(H) 70 - 99 mg/dL 11/29/2023 4:58 AM T [facility] Comment: Effective 02/29/16, the glucose reference intervals have been updated based on [place] Diabetes [employer] guidelines (Standards of Medical Care in Diabetes 2016. Diabetes Care 2016; 39: S13-S22). Fasting blood glucose: Normal: 70-99 mg/dL Impaired fasting glucose (increased risk for diabetes or pre-diabetes): 100-125 mg/dL Diabetes mellitus: >/=126 mg/dL Random blood glucose: Normal: 70-199 mg/dL Note: Random glucose >100 mg/dL is associated with increased risk for diabetes. Blood Peripheral blood specimen / Unknown Venipuncture / Unknown 11/29/2023 4:18 AM CDT 11/29/2023 4:27 AM CDT us Bryanna Can APRN LAB BLOOD ORDERABLES Final R esult Performing Organization Address City/[facility] Co de Phone Number [facility] Unless otherwise noted, all lab tests performed by: Division of Pathology and Laboratory Medicine [address] [place] [phone] * CRP (11/29/2023 4:18 AM CDT) CRP (C Reactive Protein) 54.22 mg/L 11/29/2023 9:03 AM CDT [facility] Blood Peripheral blood specimen / Unknown Venipuncture / Unknown 11/29/2023 4:18 AM CDT 11/29/2023 4:27 AM CDT Narrative [facility] - 11/29/2023 9:03 AM CDT Adult Reference ranges for HS CRP assay are as follows: Reference ranges when used to assess cardiac risk: <1.00 mg/L Low cardiovascular risk 1.00-3.00 mg/L Average cardiovascular risk >3.00 mg/L High cardiovascular risk Reference ranges when used to assess inflammatory responses: Less than or equal to 10.00 mg/L. us Jasper Alvarado MD LAB BLOOD ORDERABLES Final Resu lt Performing Organization Address City/[facility] Co de Phone Number [facility] Unless otherwise noted, all lab tests performed by: Division of Pathology and Laboratory Medicine [address] [place] [id number] * MRI CERVICAL THORACIC LUMBAR SPINE W WO CONTRAST (11/28/2023 8:21 AM CDT) Anatomical Region Laterality Modality Spine, C-spine, T-spine, L-spine Magnetic Resonance 11/28/2023 8:42 AM CDT Impressions 11/28/2023 10:02 AM CDT 1. Progressive left sacral metastasis now involving the left gluteal musculature, and extension across midline to the right sacrum. 2. Interval involvement of right S2 and inferior sacral neural foramina, likely cause of acute urinary retention. Finding was discussed with Dr. Cox at 10:00 AM on 11/28/2023. 3. Stable linear enhancement of nerve roots of the cauda equina which may be due to arachnoiditis, to be followed. 4. Stable L5 vertebra plana. ACTIONABLE ITEMS/RECOMMENDATIONS*: None. *An Actionable Finding is a finding that may be unrelated to the original reason for imaging but potentially actionable, meaning further investigation may be necessary. The Actionable Findings Vigilance Unit (AFVU) assists medical providers with responding to additional radiologic findings that are unexpected and potentially actionable. I personally reviewed these image(s) along with the resident's/fellow's interpretations, certify that if a procedure was performed I was physically present, and agree with the final report. Narrative 11/28/2023 10:02 AM CDT FULL RESULT: Examination: MRI CERVICAL THORACIC LUMBAR SPINE W WO CONTRAST on 11/28/2023 8:21 AM. CLINICAL HISTORY: 48-year-old male with renal cell carcinoma and lumbosacral metastases status post lumbar decompression and L3 - pelvic fixation 03/24/2017, most recent radiation treatment February 2023, presenting with acute urinary retention. Intrathecal pain pump in place. INDICATION: sacral metastasis/c/f cauda equina compression COMPARISON: Same day CT thoracic spine dated 11/23/2023, MRI lumbar spine dated 09/19/2023, MRI CT L-spine dated 09/06/16. TECHNIQUE: MRI of the cervical, thoracic and lumbosacral spine without and with IV contrast was performed. FINDINGS: CERVICAL SPINE: Bone: Vertebral alignment and height are maintained. No worrisome focal marrow replacing lesion is identified. Redemonstrated 0.6 cm enhancing STIR hyperintensity in the C7 vertebral body, which is stable from 2017 and likely representing hemangioma. Posterior disk osteophyte complex at the C3-C4 and C4-C5 levels with effacement of the ventral surface of the thecal sac. Spinal canal: The cervical cord has normal size and signal intensity. No abnormal intramedullary or leptomeningeal enhancement is seen. There is no spinal canal stenosis or cord compression. Other: Limited imaging of the posterior fossa and soft tissues of the neck is unremarkable. THORACIC SPINE: Bone: Vertebral alignment and height are maintained. No worrisome focal marrow replacing lesion is identified. There is no spinal canal stenosis or cord compression. Spinal canal: The thoracic cord has normal size and signal intensity. No abnormal intramedullary or leptomeningeal enhancement is seen. Other: Limited imaging of the chest and upper abdomen is unremarkable. LUMBAR SPINE: Bone: Postsurgical changes of bilateral L5 laminectomy and facetectomy. Posterior spinal fusion hardware spanning the L4 - sacral levels and cement reinforcement in the L4 and L5 vertebral bodies. Redemonstrated severe compression deformity of the L5 vertebral body with 1.0 cm retropulsion of the posterior wall. Compared to prior exam 09/19/2023, new enhancing metastasis is seen in the midline and right sacrum now involving right S2 and inferior neural foramina. The treated nonenhancing tumor in the left sacrum is marked on image 34 of series 25. Enhancing tumor anteriorly in the left sacrum and extending across midline to the right is also marked on the same image with alignment. There is new enhancing tumor in the left gluteal musculature on image 34 of series 25, also marked with a line. Vertebral alignment, height and bone marrow signal intensity are preserved. No worrisome focal marrow replacing lesion is identified. There is no spinal canal stenosis. Spinal canal: The conus medullaris terminates normally at L1-L2 and the distribution of the cauda equina nerve roots is normal. Minimal linear enhancement of a few nerve roots of the cauda equina may be present around image 10 of series 21, to be followed this is stable since 09/19/2023. No nodular or masslike enhancement is seen within the thecal sac. Other: Limited imaging of the abdomen and pelvis is unremarkable. Procedure Note Serena Moya MD - 11/28/2023 FULL RESULT: Examination: MRI CERVICAL THORACIC LUMBAR SPINE W WO CONTRAST on 4/25/12568:21 AM. CLINICAL HISTORY: 48-year-old male with renal cell carcinoma andlumbosacral metastases status post lumbar decompression and L3 - pelvicfixation 03/24/2017, most recent radiation treatment February 2023, presentingwith acute urinary retention. Intrathecal pain pump in place. INDICATION: sacral metastasis/c/f cauda equina compression COMPARISON: Same day CT thoracic spine dated 11/23/2023, MRI lumbar spinedated 09/19/2023, MRI CT L-spine dated 09/06/16. TECHNIQUE: MRI of the cervical, thoracic and lumbosacral spine without andwith IV contrast was performed. FINDINGS: CERVICAL SPINE: Bone: Vertebral alignment and height are maintained. No worrisome focal marrowreplacing lesion is identified. Redemonstrated 0.6 cm enhancing STIRhyperintensity in the C7 vertebral body, which is stable from 2017 andlikely representing hemangioma. Posterior disk osteophyte complex at theC3-C4 and C4-C5 levels with effacement of the ventral surface of thethecal sac. Spinal canal: The cervical cord has normal size and signal intensity. No abnormalintramedullary or leptomeningeal enhancement is seen. There is no spinalcanal stenosis or cord compression. Other: Limited imaging of the posterior fossa and soft tissues of the neck isunremarkable. THORACIC SPINE: Bone: Vertebral alignment and height are maintained. No worrisome focal marrowreplacing lesion is identified. There is no spinal canal stenosis or cordcompression. Spinal canal: The thoracic cord has normal size and signal intensity. No abnormalintramedullary or leptomeningeal enhancement is seen. Other: Limited imaging of the chest and upper abdomen is unremarkable. LUMBAR SPINE: Bone: Postsurgical changes of bilateral L5 laminectomy and facetectomy.Posterior spinal fusion hardware spanning the L4 - sacral levels andcement reinforcement in the L4 and L5 vertebral bodies. Redemonstrated severe compression deformity of the L5 vertebral body with1.0 cm retropulsion of the posterior wall. Compared to prior exam 09/19/2023, new enhancing metastasis is seen in themidline and right sacrum now involving right S2 and inferior neuralforamina. The treated nonenhancing tumor in the left sacrum is marked onimage 34 of series 25. Enhancing tumor anteriorly in the left sacrum andextending across midline to the right is also marked on the same imagewith alignment. There is new enhancing tumor in the left gluteal musculature on image 34of series 25, also marked with a line. Vertebral alignment, height and bone marrow signal intensity arepreserved. No worrisome focal marrow replacing lesion is identified. Thereis no spinal canal stenosis. Spinal canal: The conus medullaris terminates normally at L1-L2 and the distribution ofthe cauda equina nerve roots is normal. Minimal linear enhancement of afew nerve roots of the cauda equina may be present around image 10 ofseries 21, to be followed this is stable since 09/19/2023. No nodular ormasslike enhancement is seen within the thecal sac. Other: Limited imaging of the abdomen and pelvis is unremarkable. IMPRESSION: 1. Progressive left sacral metastasis now involving the left glutealmusculature, and extension across midline to the right sacrum. 2. Interval involvement of right S2 and inferior sacral neural foramina,likely cause of acute urinary retention. Finding was discussed with at 10:00 AM on 11/28/2023. 3. Stable linear enhancement of nerve roots of the cauda equina which maybe due to arachnoiditis, to be followed. 4. Stable L5 vertebra plana. ACTIONABLE ITEMS/RECOMMENDATIONS*: None. *An Actionable Finding is a finding that may be unrelated to the originalreason for imaging but potentially actionable, meaning furtherinvestigation may be necessary. The Actionable Findings Vigilance Unit(AFVU) assists medical providers with responding to additional radiologicfindings that are unexpected and potentially actionable. I personally reviewed these image(s) along with the resident's/fellow'sinterpretations, certify that if a procedure was performed I wasphysically present, and agree with the final report. us Saeid Miranda MD IMG MRI ORDERABLES Final Result * CT Thoracic Spine without Contrast (11/28/2023 7:08 AM CDT) Anatomical Region Laterality Modality T-spine, Spine Computed Tomogra phy 11/28/2023 7:13 AM CDT Impressions 11/28/2023 10:14 AM CDT 1. 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 All the left sacral neural foramina appear involved. 2. Complete effacement of fat due to tumor in the right S2 and S3 neural foramina, better seen on concurrent MRI spine and in keeping with symptoms. Extensive bone metastasis to the right sacrum is not well seen on CT but is present on concurrent MRI. 3. Posterior segmental stabilization hardware at L3-S1 with screws extending into iliac bones bilaterally without evidence of hardware failure. 4. No discontinuity in the intrathecal catheter. ACTIONABLE ITEMS/RECOMMENDATIONS*: None. *An Actionable Finding is a finding that may be unrelated to the original reason for imaging but potentially actionable, meaning further investigation may be necessary. The Actionable Findings Vigilance Unit (AFVU) assists medical providers with responding to additional radiologic findings that are unexpected and potentially actionable. I personally reviewed these image(s) along with the resident's/fellow's interpretations, certify that if a procedure was performed I was physically present, and agree with the final report. Narrative 11/28/2023 10:14 AM CDT FULL RESULT: Examination: CT THORACIC SPINE WO CONTRAST, CT LUMBAR SPINE WO CONTRAST, 11/28/2023 7:08 AM. 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 Multiplanar reformations in the coronal and sagittal planes are provided. Beam hardening artifact limits evaluation. Findings: The intrathecal catheter tip is seen at the left T10-T11 disk space level. No discontinuity of the catheter is identified. It courses through the thecal sac and enters the spinal canal at the upper L1 level. It is seen in the right posterior paraspinal soft tissues and in the dorsal subcutaneous fat at the L1-L2 level. The full extent of the catheter in the left dorsal subcutaneous fat is not visualized. No new metastasis is seen on noncontrast CT in the thoracic spine. Linear sclerotic lesion within the T12 vertebral body is likely a bone island. Posterior segmental stabilization hardware is present from L3 to S1 with cement augmentation of the pedicle screws at L3 and L4. No hardware complications or malalignment is identified. An unchanged, severe pathological fracture is noted at L5, resulting in a vertebral plana deformity with redemonstration of mild central retropulsion of the posterior endplate into the spinal canal. A large lytic lesion within the left sacrum and extending into the left iliac bone is noted, corresponding with region of known metastasis. The metastasis occupies the entire left sacrum and left sacral neural foramina. The region of metastasis is stable since most recent MRI examination. No new metastatic lesions are identified. Procedure Note Serena Moya MD - 11/28/2023 FULL RESULT: Examination: CT THORACIC SPINE WO CONTRAST, CT LUMBAR SPINE WO CONTRAST,11/28/2023 7:08 AM. 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 Multiplanar reformations in thecoronal and sagittal planes are provided. Beam hardening artifact limitsevaluation. Findings: The intrathecal catheter tip is seen at the left T10-T11 disk space level.No discontinuity of the catheter is identified. It courses through thethecal sac and enters the spinal canal at the upper L1 level. It is seenin the right posterior paraspinal soft tissues and in the dorsalsubcutaneous fat at the L1-L2 level. The full extent of the catheter inthe left dorsal subcutaneous fat is not visualized. No new metastasis is seen on noncontrast CT in the thoracic spine. Linearsclerotic lesion within the T12 vertebral body is likely a bone island. Posterior segmental stabilization hardware is present from L3 to S1 withcement augmentation of the pedicle screws at L3 and L4. No hardwarecomplications or malalignment is identified. An unchanged, severe pathological fracture is noted at L5, resulting in avertebral plana deformity with redemonstration of mild centralretropulsion of the posterior endplate into the spinal canal. A large lytic lesion within the left sacrum and extending into the leftiliac bone is noted, corresponding with region of known metastasis. Themetastasis occupies the entire left sacrum and left sacral neuralforamina. The region of metastasis is stable since most recent MRIexamination. No new metastatic lesions are identified. IMPRESSION: 1. Stable lytic metastasis occupying the entire left sacrum and extendingto the left iliac bone. All the left sacral neural foramina appearinvolved. 2. Complete effacement of fat due to tumor in the right S2 and S3 neuralforamina, better seen on concurrent MRI spine and in keeping withsymptoms. 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 3. Posterior segmental stabilization hardware at L3-S1 with screwsextending into iliac bones bilaterally without evidence of hardwarefailure. 4. No discontinuity in the intrathecal catheter. ACTIONABLE ITEMS/RECOMMENDATIONS*: None. *An Actionable Finding is a finding that may be unrelated to the originalreason for imaging but potentially actionable, meaning furtherinvestigation may be necessary. The Actionable Findings Vigilance Unit(AFVU) assists medical providers with responding to additional radiologicfindings that are unexpected and potentially actionable. I personally reviewed these image(s) along with the resident's/fellow'sinterpretations, certify that if a procedure was performed I wasphysically present, and agree with the final report. us Carolyn Evans MD IMG CT ORDERABLES Final Resul t * CT Lumbar Spine without Contrast (11/28/2023 7:08 AM CDT) Anatomical Region Laterality Modality L-spine, Spine Computed Tomogra phy 11/28/2023 7:13 AM CDT Impressions 11/28/2023 10:14 AM CDT 1. 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 All the left sacral neural foramina appear involved. 2. Complete effacement of fat due to tumor in the right S2 and S3 neural foramina, better seen on concurrent MRI spine and in keeping with symptoms. Extensive bone metastasis to the right sacrum is not well seen on CT but is present on concurrent MRI. 3. Posterior segmental stabilization hardware at L3-S1 with screws extending into iliac bones bilaterally without evidence of hardware failure. 4. No discontinuity in the intrathecal catheter. ACTIONABLE ITEMS/RECOMMENDATIONS*: None. *An Actionable Finding is a finding that may be unrelated to the original reason for imaging but potentially actionable, meaning further investigation may be necessary. The Actionable Findings Vigilance Unit (AFVU) assists medical providers with responding to additional radiologic findings that are unexpected and potentially actionable. I personally reviewed these image(s) along with the resident's/fellow's interpretations, certify that if a procedure was performed I was physically present, and agree with the final report. Narrative 11/28/2023 10:14 AM CDT FULL RESULT: Examination: CT THORACIC SPINE WO CONTRAST, CT LUMBAR SPINE WO CONTRAST, 11/28/2023 7:08 AM. 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 Multiplanar reformations in the coronal and sagittal planes are provided. Beam hardening artifact limits evaluation. Findings: The intrathecal catheter tip is seen at the left T10-T11 disk space level. No discontinuity of the catheter is identified. It courses through the thecal sac and enters the spinal canal at the upper L1 level. It is seen in the right posterior paraspinal soft tissues and in the dorsal subcutaneous fat at the L1-L2 level. The full extent of the catheter in the left dorsal subcutaneous fat is not visualized. No new metastasis is seen on noncontrast CT in the thoracic spine. Linear sclerotic lesion within the T12 vertebral body is likely a bone island. Posterior segmental stabilization hardware is present from L3 to S1 with cement augmentation of the pedicle screws at L3 and L4. No hardware complications or malalignment is identified. An unchanged, severe pathological fracture is noted at L5, resulting in a vertebral plana deformity with redemonstration of mild central retropulsion of the posterior endplate into the spinal canal. A large lytic lesion within the left sacrum and extending into the left iliac bone is noted, corresponding with region of known metastasis. The metastasis occupies the entire left sacrum and left sacral neural foramina. The region of metastasis is stable since most recent MRI examination. No new metastatic lesions are identified. Procedure Note Serena Moya MD - 11/28/2023 FULL RESULT: Examination: CT THORACIC SPINE WO CONTRAST, CT LUMBAR SPINE WO CONTRAST,11/28/2023 7:08 AM. 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 Multiplanar reformations in thecoronal and sagittal planes are provided. Beam hardening artifact limitsevaluation. Findings: The intrathecal catheter tip is seen at the left T10-T11 disk space level.No discontinuity of the catheter is identified. It courses through thethecal sac and enters the spinal canal at the upper L1 level. It is seenin the right posterior paraspinal soft tissues and in the dorsalsubcutaneous fat at the L1-L2 level. The full extent of the catheter inthe left dorsal subcutaneous fat is not visualized. No new metastasis is seen on noncontrast CT in the thoracic spine. Linearsclerotic lesion within the T12 vertebral body is likely a bone island. Posterior segmental stabilization hardware is present from L3 to S1 withcement augmentation of the pedicle screws at L3 and L4. No hardwarecomplications or malalignment is identified. An unchanged, severe pathological fracture is noted at L5, resulting in avertebral plana deformity with redemonstration of mild centralretropulsion of the posterior endplate into the spinal canal. A large lytic lesion within the left sacrum and extending into the leftiliac bone is noted, corresponding with region of known metastasis. Themetastasis occupies the entire left sacrum and left sacral neuralforamina. The region of metastasis is stable since most recent MRIexamination. No new metastatic lesions are identified. IMPRESSION: 1. Stable lytic metastasis occupying the entire left sacrum and extendingto the left iliac bone. All the left sacral neural foramina appearinvolved. 2. Complete effacement of fat due to tumor in the right S2 and S3 neuralforamina, better seen on concurrent MRI spine and in keeping withsymptoms. 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 3. Posterior segmental stabilization hardware at L3-S1 with screwsextending into iliac bones bilaterally without evidence of hardwarefailure. 4. No discontinuity in the intrathecal catheter. ACTIONABLE ITEMS/RECOMMENDATIONS*: None. *An Actionable Finding is a finding that may be unrelated to the originalreason for imaging but potentially actionable, meaning furtherinvestigation may be necessary. The Actionable Findings Vigilance Unit(AFVU) assists medical providers with responding to additional radiologicfindings that are unexpected and potentially actionable. I personally reviewed these image(s) along with the resident's/fellow'sinterpretations, certify that if a procedure was performed I wasphysically present, and agree with the final report. us Carolyn Evans MD IMG CT ORDERABLES Final Resul t * (ABNORMAL) Basic Metabolic Panel- Calcium Ionized (11/28/2023 4:30 AM CDT) eGFR 78 >=60 mL/min/1.7 3 sq. m 11/28/2023 5:14 AM CDT [facility] Comment: The eGFRcr is calculated with the 2020 CKD-EPI creatinine equation using creatinine, patient's age, and sex for adults 18 years of age and older. Other factors, especially muscle mass, may affect accuracy and need to be considered. According to the Kidney Disease: Improving Global Outcomes (KDIGO) CKD Work Group 2012 Clinical Practice Guideline, chronic kidney disease (CKD) is defined as the abnormalities of kidney structure or function, present for more than 3 months, with implications for health. CKD should be classified by cause, GFR category, and albuminuria category. KDIGO guidelines provide the following GFR categories. Stage / Description / GFR mL/min/1.73 m2: G1* / Normal or high / >= 90 G2* / Mildly decreased / 60-89 G3a / Mildly to moderately decreased / 45-59 G3b / Moderately to severely decreased / 30-44 G4 / Severely decreased / 15-29 G5 / Kidney failure / <15 *In the absence of evidence of kidney damage, neither G1 nor G2 fulfill criteria for CKD. Sodium Level 138 136 - 145 mmol/L 11/28/2023 5:14 AM CDT [facility] Potassium Level 4.4 3.4 - 4.5 mmol/L 11/28/2023 5:14 AM CDT [facility] Chloride 102 98 - 107 mmol/L 11/28/2023 5:14 AM CDT [facility] CO2 27 22 - 29 mmol/L 11/28/2023 5:14 AM CDT [facility] Anion Gap 9 4 - 14 mmol/L 11/28/2023 5:14 AM CDT [facility] Creatinine 1.14 0.67 - 1.17 mg/dL 11/28/2023 5:14 AM CDT [facility] BUN 20 6 - 23 mg/dL 11/28/2023 5:14 AM CDT [facility] Glucose Level 154(H) 70 - 99 mg/dL 11/28/2023 5:14 AM CDT [facility] Comment: Effective 02/29/16, the glucose reference intervals have been updated based on [place] [employer] guidelines (Standards of Medical Care in Diabetes 2016. Diabetes Care 2016; 39: S13-S22). Fasting blood glucose: Normal: 70-99 mg/dL Impaired fasting glucose (increased risk for diabetes or pre-diabetes): 100-125 mg/dL Diabetes mellitus: >/=126 mg/dL Random blood glucose: Normal: 70-199 mg/dL Note: Random glucose >100 mg/dL is associated with increased risk for diabetes. Blood Peripheral blood specimen / Unknown Venipuncture / Unknown 11/28/2023 4:30 AM CDT 11/28/2023 4:40 AM CDT Sunny Tameka Chan FORM BUILDER LAB BLOOD ORDERABLES Flaquita l Result [facility] Unless otherwise noted, all lab tests performed by: Division of Pathology and Laboratory Medicine [address] [place] [id number] * (ABNORMAL) Calcium Ionized, Venous (11/28/2023 4:30 AM CDT) Pathologist [facility] Venous Ionized Calcium 1.42(H) 1.15 - 1.29 mmol/L 11/28/2023 4:43 AM CDT [facility] Oxygen FLOW Rate/ FiO2 11/28/2023 4:43 AM CDT [facility] O2 Therapy 11/28/2023 4:43 AM CDT [facility] Blood Peripheral blood specimen / Unknown Venipuncture / Unknown 11/28/2023 4:30 AM CDT 11/28/2023 4:41 AM CDT Sunny Giles APRN LAB BLOOD ORDERABLES Flaquita l Result Performing Organization Address [facility] Co de Phone Number [facility] Unless otherwise noted, all lab tests performed by: Division of Pathology and Laboratory Medicine [address] [place] [id number] * Historical ABORh (11/27/2023 4:52 PM CDT) Pathologist [facility] ABORh B POS 11/27/2023 4:53 PM CDT [facility] - TRANSFUSION SERVICES Blood Peripheral blood specimen / Unknown 11/27/2023 4:52 PM CDT 11/27/2023 4:52 PM CDT Jonah Alanis MD BLOOD BANK TEST ORDERABLES F inal Result [facility] - TRANSFUSION SERVICES [facility] [address] [place] [address] [id number] [place] [address] * (ABNORMAL) aPTT (11/27/2023 4:04 PM CDT) Only the most recent of2 resultswithin the time period is included. Activated PTT 48.2(H) 24.1 - 35.5 second(s) 11/27/2023 4:51 PM CDT [facility] Blood Peripheral blood specimen / Unknown Peripheral Catheter / Unknown 11/27/2023 4:04 PM CDT 11/27/2023 4:10 PM CDT Jonah Alanis MD LAB BLOOD ORDERABLES Final R esult Performing Organization Address City/[facility] de Phone Number [facility] Unless otherwise noted, all lab tests performed by: Division of Pathology and Laboratory Medicine [address] [place] [id number] * Prothrombin Time with INR (11/27/2023 4:04 PM CDT) Only the most recent of2 resultswithin the time period is included. [facility] Prothrombin Time 14.3 11.9 - 14.5 second(s) 11/27/2023 4:51 PM CDT [facility] International Normalization Ratio 1.12 0.87 - 1.12 11/27/2023 4:51 PM CDT [facility] Blood Peripheral blood specimen / Unknown Peripheral Catheter / Unknown 11/27/2023 4:04 PM CDT 11/27/2023 4:10 PM CDT Jonah Alanis MD LAB BLOOD ORDERABLES Final R esult Performing Organization Address City/[facility]/ZIP Co de Phone Number [facility] Unless otherwise noted, all lab tests performed by: Division of Pathology and Laboratory Medicine [address] [place] [phone] * Type and Screen (11/27/2023 4:04 PM CDT) Pathologist [facility] ABORh B POS 11/27/2023 2:18 PM CDT [facility] - TRANSFUSION SERVICES ABSC Negative 11/27/2023 2:18 PM CDT [facility] - TRANSFUSION [facility] Clot Expiration 11/30/2023 23:59 11/27/2023 2:18 PM CDT [facility] - TRANSFUSION SERVICES Historical Record Check Complete 11/27/2023 2:18 PM CDT [facility] - TRANSF[facility]ION SERVICES Blood Peripheral blood specimen / Unknown Peripheral Catheter / Unknown 11/27/2023 4:04 PM CDT 11/27/2023 4:11 PM CDT us Jonah Alanis MD BLOOD BANK TEST ORDERABLES F inal Result [facility] - TRANSFUSION SERVICES [facility] [id number] [place] [address] * (ABNORMAL) Urinalysis w/Microscopic if Indicated (11/27/2023 3:57 PM CDT) Urine Appearance Clear Clear 11/27/19 4:45 PM CDT [facility] Urine Color Straw Colorless, Straw, Yellow, Dark Yellow, Straw-Yellow 11/27/2023 4:45 PM CDT [facility] Urine Specific [place] 1.009 1.003 - 1.035 11/27/2023 4:45 PM CDT [facility] Urine pH 6.0 5.0 - 8.0 11/27/2023 4:45 PM CDT [facility] Urine Glucose >=500(A) Negative mg/dL 11/27/2023 4:45 PM CDT [facility] Urine Ketones Negative Negative mg/dL 11/27/2023 4:45 PM CDT [facility] Urine Blood Negative Negative 11/27/2023 4:45 PM CDT [facility] Urine Protein Negative Negative mg/dL 11/27/2023 4:45 PM CDT [facility] Urine Bilirubin Negative Negative 4:45 PM CDT [facility] Urine Urobilinogen Negative Negative 11/27/2023 4:45 PM CDT [facility] Urine Nitrite Negative Negative 11/27/2023 4:45 PM CDT [facility] Urine Leukocyte Esterase Negative Negative 11/27/2023 4:45 PM CDT [facility] Urine (Urine Crane) Non-blood Collection / Unknown 11/27/2023 3:57 PM CDT 11/27/2023 4:03 PM CDT Narrative [facility] - 11/27/2023 4:45 PM CDT Some reporting parameters within the Urinalysis test have changed due to the implementation of new instrumentation in the Main [place], allowing greater sensitivity of measurement. Urinalysis results reported by the [facility] using existing instrumentation, as well as Urinalysis testing performed manually or by back-up methodology at the main [facility], will remain relatively unchanged. New reporting parameters and units will now be reported for all campuses. No microscopic exam performed; physiochemical findings are negative Jonah Alanis MD URINE ORDERABLES Final Resul t Performing Organization Address City/[facility] Co de Phone Number [facility] Unless otherwise noted, all lab tests performed by: Division of Pathology and Laboratory Medicine [address] [place] [id number] * Urine Culture (11/27/2023 3:57 PM CDT) Urine Culture No Growth. 11/29/2023 10:27 AM CDT [facility] Urine (Urine Crane) Non-blood Collection / Unknown 11/27/2023 3:57 PM CDT 11/27/2023 4:03 PM CDT Jonah Alanis MD MICROBIOLOGY - GENERAL ORDER HONEY Final Result [facility] Unless otherwise noted, all lab tests performed by: Division of Pathology and Laboratory Medicine [address] [place] [id number] * FL Portable Fluoroscopy (C-Arm) (CPT 00487) (11/05/2023 4:10 PM CDT) Narrative Systemgenerated, Documentation - 11/05/2023 4:11 PM CDT This procedure requires no interpretation from the radiologist. Martin May MD IMG FLUOROSCOPY ORDERABLES Final Result * Pain Management Fluoroscopy (10/25/2023 9:08 AM CDT) Narrative Systemgenerated, Documentation - 10/25/2023 9:08 AM CDT This procedure requires no interpretation from the radiologist. 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 04/29/2015 Historical * Full Code (Latest Code Status on File) Date Activated Date Inactivated Comments 11/27/2023 8:36 PM 11/30/2023 6:07 PM * Full Code Date Activated Date Inactivated Comments 11/05/2023 6:22 PM 11/05/2023 8:44 PM * Full Code Date Activated Date Inactivated Comments 11/02/2023 10:28 PM 11/03/2023 6:48 AM * Full Code Date Activated Date Inactivated Comments 03/13/2018 9:08 AM 03/13/2018 2:07 PM * Full Code Date Activated Date Inactivated Comments 07/03/2017 6:04 PM 07/03/2017 10:28 PM Care Teams Station Engineer Chief Relationship Specialty Start Date End Date Jd Pena MD [email or web address] PCP - External Follow Up A 04/15/15 Fco Manuel MD [address] [place] [phone] [email or web address] PCP - General Genitourinary Oncology 07/24/17 Fco Manuel MD [address] [place] [address] [phone] [email or web address] .[email or web address] Physician 10/12/15 Tad Rodriguez MD [email or web address] Physician 10/12/15 Nicole Meadows PA [address] [place] [phone] [email or web address]. [facility] Physician Fabric [employer] Textile Factory Worker 10/12/15 Edwin Guidry MD [address] [place] [id number] [email or web address]. rg Physician 10/12/15 Terell Seymour MD [address] [place] [phone] [email or web address]. rg Consulting Physician Radiation Oncology 09/18/16 Martin May MD [address] [place] [phone] Jose [email or web address]. [facility] Physician Pain Management 10/03/16 Kim Sapp MD [address] [place] [phone] [email or web address] Consulting Physician Dermatology 04/06/16 Wendy Haider MD [address] [place] [phone] [email or web address]. [facility] Consulting Physician Pulmonary Medicine 09/12/17 Viraj Nelson MD [address] [place] [address] [phone] [email or web address]. org Consulting Physician Internal Medicine 01/23/17 Edgard Centeno IV, MD [address] [place] [address] [id number] [email or web address]. org Consulting Physician Urology 11/29/17 Rebecca Garza MD [address] [place] [id number] [email or web address]. [email or web address] Consulting Physician Endocrinology 04/18/17 Michelle Hagan MD [address] [place] [address] [phone] [email or web address] .[email or web address] Consulting Physician Psychiatry 01/18/16 Chuck Darby MD [address] [place] [address] [phone] [email or web address]. [facility] Consulting Physician Orthopedic Surgery 12/17/17 Emeka Cruz MD [address] [place] [id number] [email or web address] .[email or web address] Consulting Physician Plastic and Reconstructive Surgery 12/18/19 Neno Beyer MD [address] [place] [phone] [email or web address]. [facility] Consulting Physician Endocrinology 05/12/20
[2024-10-15] MEDS ORDERED: NA CHLORIDE 0.9% 1,000 ML ONE (14:10)
[2024-10-15] MEDS ORDERED: ONDANSETRON 4 MG/2 ML VIAL ONE (14:10)
[2024-10-15] MEDS ORDERED: MORPHINE 4 MG/ML SYR ONE (14:10)
--- NOTE | 2024-10-15 14:47 | RAD REPORT ---
EXAM: Right upper quadrant ultrasound. CLINICAL HISTORY: ABD PAIN COMPARISON: None. FINDINGS: Gallbladder: Normal. Bile ducts: No intrahepatic or extrahepatic biliary dilatation. Common bile duct measures 2 mm. Limited imaging of the liver shows mild fatty liver. IMPRESSION: Unremarkable exam.
[2024-10-15] MEDS ORDERED: ONDANSETRON 4 MG (ODT) TAB ONE (14:51)
[2024-10-15 15:14] LABS: Albumin 3.9 g/dL (3.4-5.0); Albumin/Globulin Ratio 0.7 (1.1-1.8); Anion Gap 9.4 mEq/L (5.0-15.0); Bilirubin Total 0.3 mg/dL (0.2-1.0); Globulin 5.3 g/dL (2.3-3.5); Potassium 3.4 mEq/L (3.5-5.1); Protein, Total 9.2 g/dL (6.4-8.2)
[2024-10-15 17:01] LABS: Absolute Lymphocytes (CBC) 0.7 K/uL (0.7-4.9); Absolute Monocytes 0.4 K/uL (0.1-1.3); Absolute Neutrophil 6.1 K/uL (1.8-8.0); Basophils % 0.5 % (0-1.3); Eosinophils % 0.6 % (0-4.4); Hematocrit 24.6 % (39.6-49.0); Hemoglobin 8.9 g/dL (13.6-17.9); MCH 32.6 pg (27.0-35.0); MCV 90.5 fL (80-100); MPV 7.1 fL (7.6-11.3); Neutrophils % 82.9 % (41.7-73.7); Platelets 313 thou/uL (152-406); RBC Red Blood Cell Count 2.72 M/uL (4.33-5.43); Red Cell Distribution Width 13.7 % (12.1-15.2)
--- NOTE | 2024-10-15 17:03 | ER ---
Nurse's Notes [facility] Lisa Name: Raf Pearson Age: 49 yrs Sex: Male : 1975 Arrival Date: 10/15/2024 Time: 13:43 Bed 20 Private MD: Diagnosis: Upper abdominal pain, unspecified;Nausea with vomiting, unspecified Presentation: 10/15 13:48 Chief complaint: EMS states: ABD PAIN X 2 DAYS. LOWER MIDDLE SHARP PAIN. REPORTS db VOMITING YESTERDAY. NAUSEA TODAY. NOT EATING NORMAL. HX OF RENAL CANCER THAT SPREAD TO BACK. RECEIVING PO CANCER TREATMENTS TID. Coronavirus screen: Client denies travel out of the [place] in the last 14 days. At this time, the client does not indicate any symptoms associated with coronavirus-19. Ebola Screen: Patient negative for fever greater than or equal to 101.5 degrees Fahrenheit, and additional compatible Ebola Virus Disease symptoms Patient denies exposure to infectious person. Patient denies travel to an Ebola-affected area in the 21 days before illness onset. No symptoms or risks identified at this time. Initial Sepsis Screen: Does the patient meet any 2 criteria? No. Patient's initial sepsis screen is negative. Does the patient have a suspected source of infection? No. Patient's initial sepsis screen is negative. Risk Assessment: Do you want to hurt yourself or someone else? Patient reports no desire to harm self or others. Onset of symptoms was October 14, 2024. 13:48 Method Of Arrival: EMS: [facility] db 13:48 Acuity: LOLLY 3 db Triage Assessment: 13:48 General: Appears in no apparent distress. Behavior is calm, cooperative. Pain: db Complains of pain in epigastric area. Neuro: Level of Consciousness is awake, alert, obeys commands, Oriented to person, place, time, situation. Respiratory: Airway is patent Respiratory effort is even, unlabored, Respiratory pattern is regular, symmetrical. Historical: - Allergies: 13:57 DAPTOMYCIN; dr5 13:57 Rifadin; dr5 - PMHx: 13:57 kidney cancer; dr5 - Immunization history:: Adult Immunizations unknown. - Infectious Disease History:: Denies. - Social history:: Smoking status: Patient denies any tobacco usage or history of. Screenin:59 [facility] ED Fall Risk Assessment (Adult) History of falling in the last 3 months, db including since admission No falls in past 3 months (0 pts) Confusion or Disorientation No (0 pts) Intoxicated or Sedated No (0 pts) Impaired Gait No (0 pts) Mobility Assist Device Used No (0 pt) Altered Elimination No (0 pt) Score/Fall Risk Level 0 - 2 = Low Risk Oriented to surroundings, Maintained a safe environment. Abuse screen: Denies threats or abuse. Denies injuries from another. Nutritional screening: No deficits noted. Tuberculosis screening: No symptoms or risk factors identified. Assessment: 13:43 Reassessment: SEE MAR FOR MEDICATION ADMINISTRATION FOR PO ZOFRAN. COMPLAINS OF N/V. db 13:50 Reassessment: SEE TRIAGE FOR INITIAL ASSESSMENT. db 17:03 Reassessment: Patient appears in no apparent distress at this time. Patient and/or db family updated on plan of care and expected duration. Pain level reassessed. Patient is alert, oriented x 3, equal unlabored respirations, skin warm/dry/pink. Patient states feeling better. Patient states symptoms have improved. 17:44 Reassessment: Patient appears in no apparent distress at this time. Patient and/or db family updated on plan of care and expected duration. Pain level reassessed. Patient is alert, oriented x 3, equal unlabored respirations, skin warm/dry/pink. Patient states feeling better. Vital Signs: 13:48 BP 119 / 71; Pulse 99; Resp 16; Temp 98.2; Pulse Ox 99% ; Weight 86.18 kg; Height 5 ft. db 10 in. ; 14:00 BP 122 / 73; Pulse 86; Resp 16; Pulse Ox 100% ; db 15:12 BP 130 / 60; Pulse 87; Resp 18; Pulse Ox 96% on R/A; db 16:00 BP 121 / 69; Pulse 76; Resp 16; Pulse Ox 100% on R/A; db 16:30 BP 117 / 67; Pulse 77; Resp 16; Pulse Ox 96% on R/A; db 17:44 BP 118 / 68; Pulse 76; Resp 16; Pulse Ox 100% ; db 13:48 Body Mass Index 27.26 (86.18 kg, 177.8 cm) db ED Course: 13:45 Patient arrived in ED. ec2 13:45 Jair King MD is Attending Physician. ec2 13:48 Arm band placed on Patient placed in an exam room. db 13:51 Srinivas Dejesus FNP-C is PHCP. dr5 14:36 US Abdomen Limited: RUQ to r/o cholecystitis In Process Unspecified. EDMS 14:43 Initial lab(s) drawn, by me, sent to lab. Missed attempt(s): 22 gauge in right db antecubital area. Bleeding controlled, band aid applied, catheter tip intact. Patient maintains SpO2 saturation greater than 95% on room air. 14:51 Shirley aFrrar, RN is Primary Nurse. db 14:55 Triage completed. db 15:06 Accessed peripheral vein via ultrasound, utilizing dynamic ultrasound technique Blood cm10 collected. Clean \T\ dry. Dressing intact. Good blood return. Flushes easily. 20g left forearm. 15:24 Lab(s) recollected, by me, sent to lab. db 17:25 Crane cath inserted, using sterile technique, 16 Fr., by ED staff, balloon inflated, to db gravity drainage, urine specimen collected. Patient tolerated well. 17:44 No provider procedures requiring assistance completed. db 17:44 Patient has correct armband on for positive identification. Bed in low position. Call db light in reach. Side rails up X 1. Provided Education on: DISCHARGE AND FOLLOWUP. Pulse ox on. NIBP on. Warm blanket given. Pillow given. Administered Medications: 14:53 Drug: Ondansetron PO 4 mg PO once Route: PO; db 17:45 Follow up: Response: No adverse reaction db 15:03 Drug: Ondansetron IVP 4 mg IVP once; over 2 minutes Route: IVP; Site: left antecubital; db 17:46 Follow up: Response: No adverse reaction db 15:03 Drug: morphine IVP or IV 4 mg IVP once over 4 mins Route: IVP; Infused Over: 4 mins; db Site: left antecubital; 17:46 Follow up: Response: No adverse reaction db 15:03 Drug: NS 0.9% IV 1000 ml IV at 1 bolus Per protocol; to be given as a bolus over 60 db minutes Route: IV; Rate: 1 bolus; Site: left antecubital; 17:46 Follow up: Response: No adverse reaction; IV Status: Completed infusion; IV Intake: db 1000ml 17:21 Drug: Promethazine IVP 12.5 mg IVP once Route: IVP; Site: left antecubital; db 17:45 Follow up: Response: No adverse reaction db Medication: 17:44 VIS not applicable for this client. db Intake: 17:46 IV: 1000ml; Total: 1000ml. db Outcome: 17:02 Discharge ordered by . dr5 17:44 Discharged to home via wheelchair, with family, db 17:44 Condition: stable 17:44 Discharge instructions given to patient, family, Instructed on discharge instructions, follow up and referral plans. Prescriptions given X 2, 17:48 Patient left the ED. db Signatures: Dispatcher [employer] Shirley Fraser RN RN db Romi Allen RN RN cm10 Jair King MD MD ec2 Srinivas Dejesus, C UNIX DEVELOPER-C C UNIX DEVELOPER-Cdr5 Corrections: (The following items were deleted from the chart) 15:00 14:58 Reassessment: SEE TRIAGE FOR INITIAL ASSESSMENT db db 15:00 13:05 Reassessment: SEE TRIAGE FOR INITIAL ASSESSMENT db db
--- NOTE | 2024-10-15 17:04 | EDPHYS ---
Physician Documentation [facility] Name[facility] Raf Pearson Age: 49 yrs Sex: Male : 1975 Arrival Date: 10/15/2024 Time: 13:43 Bed 20 Private MD: ED Physician Jair King HPI: 10/15 13:55 This 49 yrs old Male presents to ER via Unassigned with complaints of dr5 epigastric abdominal pain. 13:56 Patient is a 49-year-old male with history of renal cancer and mass to his sacrum and dr5 chemotherapy induced diabetes coming in for epigastric abdominal pain for the past 2 days with dry heaves and nausea. Patient is currently being for cancer by MD Muir. Patient reports the pain started Alysha morning at 3 AM and has not resolved on its own. Patient denies any abdominal surgeries.. Historical: - Allergies: 13:57 DAPTOMYCIN; dr5 13:57 Rifadin; dr5 - PMHx: 13:57 kidney cancer; dr5 - Immunization history:: Adult Immunizations unknown. - Infectious Disease History:: Denies. - Social history:: Smoking status: Patient denies any tobacco usage or history of. ROS: 13:57 Constitutional: as per hpi dr5 Exam: 13:57 Constitutional: This is a well developed, well nourished patient who is awake, alert, dr5 and in no acute distress. Head/Face: Normocephalic, atraumatic. Eyes: Pupils equal round and reactive to light, extra-ocular motions intact. Lids and lashes normal. Conjunctiva and sclera are non-icteric and not injected. Cornea within normal limits. Periorbital areas with no swelling, redness, or edema. Neck: Trachea midline, no thyromegaly or masses palpated, and no cervical lymphadenopathy. Supple, full range of motion without nuchal rigidity, or vertebral point tenderness. No Meningismus. Chest/axilla: Normal chest wall appearance and motion. Nontender with no deformity. No lesions are appreciated. Cardiovascular: Regular rate and rhythm with a normal S1 and S2. Normal PMI, no JVD. No pulse deficits. Respiratory: Lungs have equal breath sounds bilaterally, clear to auscultation. No rales, rhonchi or wheezes noted. No increased work of breathing, no retractions or nasal flaring. 13:57 Back: No spinal tenderness. No costovertebral tenderness. Full range of motion. Skin: Warm, dry with normal turgor. Normal color with no rashes, no lesions, and no evidence of cellulitis. Neuro: Awake and alert, GCS 15, oriented to person, place, time, and situation. Cranial nerves II-XII grossly intact. Motor strength 5/5 in all extremities. Sensory grossly intact. Cerebellar exam normal. Normal gait. 13:57 Abdomen/GI: Inspection: abdomen appears normal, Mass under umbilical area on left due to pain pump., Bowel sounds: normal, Palpation: severe abdominal tenderness, in the epigastric area, Vital Signs: 13:48 BP 119 / 71; Pulse 99; Resp 16; Temp 98.2; Pulse Ox 99% ; Weight 86.18 kg; Height 5 ft. db 10 in. ; 14:00 BP 122 / 73; Pulse 86; Resp 16; Pulse Ox 100% ; db 15:12 BP 130 / 60; Pulse 87; Resp 18; Pulse Ox 96% on R/A; db 16:00 BP 121 / 69; Pulse 76; Resp 16; Pulse Ox 100% on R/A; db 16:30 BP 117 / 67; Pulse 77; Resp 16; Pulse Ox 96% on R/A; db 17:44 BP 118 / 68; Pulse 76; Resp 16; Pulse Ox 100% ; db 13:48 Body Mass Index 27.26 (86.18 kg, 177.8 cm) db MDM: 13:52 Medical Screening Exam initiated dr5 18:38 Differential Diagnosis Pancreatitis, Cholecystitis, Cholelithiasis. Data reviewed: dr5 vital signs, nurses notes. I considered the following discharge prescriptions or medication management in the emergency department Medications were administered in the Emergency Department. See MAR. Care significantly affected by the following chronic conditions: Kidney Cancer. Care significantly affected by the following Social Determinants of Health: Poor access to healthcare and/or lack of insurance, Poor access to transportation, Problems related to employment. Counseling: I had a detailed discussion with the patient and/or guardian regarding the historical points, exam findings, and any diagnostic results supporting the discharge/admit diagnosis, the presence of at least one elevated blood pressure reading (>120/80) during this emergency department visit, lab results, the need for outpatient follow up, for definitive care, a family practitioner, to return to the emergency department if symptoms worsen or persist or if there are any questions or concerns that arise at home. Medication response: morphine relieved the patient's pain. Symptoms have resolved, Zofran relieved the patient's nausea. Response to treatment: the patient's symptoms have resolved after treatment. 10/15 13:52 Order name: CBC with Diff; Complete Time: 17:02 dr5 10/15 13:52 Order name: CMP; Complete Time: 15:21 dr5 10/15 13:52 Order name: Lipase; Complete Time: 15:21 dr5 10/15 13:52 Order name: US Abdomen Limited: RUQ to r/o cholecystitis; Complete Time: 14:48 dr5 10/15 13:52 Order name: IV Saline Lock; Complete Time: 14:51 dr5 10/15 13:52 Order name: Labs collected and sent; Complete Time: 15:28 dr5 Administered Medications: 14:53 Drug: Ondansetron PO 4 mg PO once Route: PO; db 17:45 Follow up: Response: No adverse reaction db 15:03 Drug: Ondansetron IVP 4 mg IVP once; over 2 minutes Route: IVP; Site: left antecubital; db 17:46 Follow up: Response: No adverse reaction db 15:03 Drug: morphine IVP or IV 4 mg IVP once over 4 mins Route: IVP; Infused Over: 4 mins; db Site: left antecubital; 17:46 Follow up: Response: No adverse reaction db 15:03 Drug: NS 0.9% IV 1000 ml IV at 1 bolus Per protocol; to be given as a bolus over 60 db minutes Route: IV; Rate: 1 bolus; Site: left antecubital; 17:46 Follow up: Response: No adverse reaction; IV Status: Completed infusion; IV Intake: db 1000ml 17:21 Drug: Promethazine IVP 12.5 mg IVP once Route: IVP; Site: left antecubital; db 17:45 Follow up: Response: No adverse reaction db Disposition Summary: 10/15/24 17:02 Discharge Ordered Notes: Location: Home dr5 Condition: Stable dr5 Diagnosis - Upper abdominal pain, unspecified dr5 - Nausea with vomiting, unspecified dr5 Followup: dr5 - With: Emergency Department - When: As needed - Reason: Worsening of condition Followup: dr5 - With: Private Physician - When: 1 - 2 days - Reason: Recheck today's complaints, Continuance of care, Re-evaluation by your physician Discharge Instructions: - Discharge Summary Sheet dr5 - Abdominal Pain, Adult dr5 - Nausea, Adult dr5 Forms: - Medication Reconciliation Form dr5 - Prescription Opioid Use dr5 - Patient Portal Instructions dr5 - Leadership Thank You Letter dr5 Prescriptions: - OxyContin 10 mg Oral tablet,ORAL ONLY,extended release 12 hr - take 1 tablet ORAL route every 12 hours As needed; 20 tablet; Refills: 0, dr5 Product Selection Permitted - Zofran 4 mg Oral Tablet - take 1 tablet ORAL route every 12 hours As needed; 20 tablet; Refills: 0, dr5 Product Selection Permitted - Hydrocodone-Acetaminophen 10-325 mg Oral tablet - take 1 tablet ORAL route every 6 hours As needed; 20 tablet; Refills: 0, dr5 Product Selection Permitted Addendum: 10/16/2024 21:48 I was immediately available for consultation during this patient's visit. I did not e c2 personally see the patient or discuss the patient with the ZAHIDA. . Signatures: Dispatcher [employer] Shirley Fraser RN RN Jair Rasmussen MD MD ec2 Srinivas Dejesus, LASER BEAM TRIM OPERATOR-C LASER BEAM TRIM OPERATOR-Cdr5
[2024-10-15] MEDS ORDERED: NA CHLORIDE 0.9% 50 ML ONE (17:18)
[2024-10-15] MEDS ORDERED: PROMETHAZINE INJ 25 MG/ML AMP ONE (17:18)
[2024-10-15 17:52] VITALS: TEMP 98.2
[2024-10-15 17:58] VITALS: BP 118/68; O2SAT 100
== END 2024-10-15 17:48 | disposition home or self-care (01) ==
LOC: ER 13:43
DX: R10.13 Epigastric pain (principal); R11.2 Nausea with vomiting, unspecified; Z85.528 Personal history of other malignant neoplasm of kidney
CPT/HCPCS: 96361; 85025; 36415; 83690; 80053; 76705; 51702; 96375; 96374; 99285; J2550; Q0162; J2405; J7030